=== PATIENT | female | born 1960 | race Caucasian/White ===

== ENCOUNTER → 2017-04-10 13:37 | Outpatient (CLI) | payer MEDICAID, SELFPAY ==
--- NOTE | 2017-04-10 13:41 | CT_ITS ---
STUDY: CT SOFT TISSUE NECK WITH CONTRAST REASON FOR EXAM: Female, 56 years old. Left mandibular pain. RADIATION DOSAGE (If Supplied By Facility): CTDIvol = ( 20.04 ) mGy, DLP = ( 560.52 ) mGycm TECHNIQUE: The patient was scanned in a multi-detector CT scanner. High resolution transaxial imaging was performed following intravenous administration of 85ml ml of Isovue 300 contrast material. Sagittal and coronal images were reconstructed. Individualized dose optimization techniques were used for this CT. COMPARISON: None. FINDINGS: Normal bilateral parotid glands. 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 Normal bilateral parapharyngeal spaces. Normal bilateral carotid spaces. Normal bilateral sublingual and submandibular glands and spaces. Normal visualized nasopharynx. Normal retropharyngeal space. Normal perivertebral space. Normal visualized bilateral faucial tonsils. The visualized tongue, tongue base and oropharynx are normal. The visualized cervical lymph nodes (levels I-) are within normal size limits, and maintain normal morphology. There is no demonstrated solid or cystic mass lesion. There is no abnormal contrast enhancement. Normal epiglottis, bilateral vallecula and hypopharynx. The pre-epiglottic and paraglottic adipose spaces are normal. Normal visualized bilateral piriform sinuses, aryepiglottic folds, vocal cords, and arytenoid-cricoid articulations. Normal subglottic trachea. Normal bilateral lobes of the thyroid gland. Normal visualized pulmonary apices. Normal visualized paranasal sinuses. Normal visualized cervical spine. CT/Soft Tissue Neck WITH Contrast IMPRESSION: Normal enhanced CT examination of the soft tissues of the neck. Electronically Signed: Nithin Kelsey MD at 17:13 EST , Service support ,
[2017-04-10 13:56] LABS: CREATININE FINGERSTICK 1.1 mg/dL (0.55-1.02)
== END ==
PROVIDERS: Family Provider Family Medicine; PCP Family Medicine; Visit Provider Otolaryngology
DX: R68.84 Jaw pain (principal)
CPT/HCPCS: 70491; Q9967

== ENCOUNTER 2018-10-16 18:37 | Inpatient (IN) | payer MEDICAID, SELFPAY ==
[2018-10-16] VITALS (9 sets, daily range): BP systolic 109–154; BP diastolic 67–100; PULSE 84–117; RESP 18–32; TEMP 36.7–37.3; O2SAT 93–96; BMI 41.1; BMI 41.3
--- NOTE | 2018-10-16 18:51 | EKG12_ITS ---
Test Reason : COMPLAINT Blood Pressure : / mmHG Vent. Rate : 109 BPM Atrial Rate : 109 BPM P-R Int : 194 ms QRS Dur : 086 ms QT Int : 330 ms P-R-T Axes : 051 046 040 degrees QTc Int : 444 ms Sinus tachycardia Low voltage QRS Borderline ECG Confirmed by DAYAN HUFF ([id number]), editor managing newspaper ZEV VERA ([id number]) on 10/20/2018 2:35:50 PM Referred By: EPHRAIM Confirmed By:DAYAN HUFF
--- NOTE | 2018-10-16 18:53 | ED.VIS.GEN ---
History of Present Illness Chief Complaint: Complaint Informant: Patient Onset: Days Context: Gradual Onset Timing: Continuous Current Severity: Moderate Maximum Severity: Moderate Narrative: The patient presents to the emergency department with infectious symptoms. Patient states that she had urinary symptoms for about 2 weeks. Over the past few days, she is began to have some shortness of breath, chills, myalgias, arthralgias. She was actually seen at urgent care. She had a fever of 102.5. She was also tachycardic and feeling ill. The patient was sent over to the emergency department. She states that she does get frequent urinary tract infections. She states she has not been on antibiotics for some time. She denies any cough. She denies orthopnea. She denies any other recent illness. Prior similar symptoms: No Recent Illness/Hospitalization: No Past Medical History - Allergies and Home Meds Allergies/Adverse Reactions: Allergies atropine sulfate [From ] Allergy (Verified 10/16/18 18:38) Anaphylaxis Cephalosporins Allergy (Verified 10/16/18 18:38) Anaphylaxis fluoxetine Allergy (Verified 10/16/18 18:38) Hives hyoscyamine sulfate [From ] Allergy (Verified 10/16/18 18:38) Anaphylaxis phenobarbital [From ] Allergy (Verified 10/16/18 18:38) Anaphylaxis scopolamine hydrobromide [From ] Allergy (Verified 10/16/18 18:38) Anaphylaxis divalproex sodium [From Depakote] Adverse Reaction (Verified 10/16/18 18:38) Other INSECT BITES Allergy (Uncoded 10/16/18 18:38) Swelling Primary Care Physician: Cong Dumnot MD [Primary Care Provider] - Prior records reviewed: Yes Past Medical History: - Smoking Status: Unknown if ever smoked Review of Systems General: Reports: Chills, Fever Eyes: Denies: Visual changes - bilaterally, Diplopia ENT: Denies: Rhinorrhea, Sore throat Cardiovascular: Denies: Chest pain, Palpitations Respiratory: Reports: Cough Gastrointestinal: Reports: Nausea Genitourinary: Reports: Dysuria, Frequency Musculoskeletal: Reports: Back pain Skin: Denies: Rash, Wounds Neurological: Denies: Headache, Weakness, Numbness Physical Exam Vital Signs/Narrative: Vital Signs Temp Pulse Resp BP Pulse Ox 10/16/18 18:38 98.1 F 117 H 19 H 131/75 H 95 Inital Vital Signs reviewed: Yes General: Well nourished, Well developed, No Acute Distress Head: Normocephalic, Atraumatic Eyes: Perrl, EOMI ENT: Moist mucous membranes, No rhinorrhea Neck: Supple, Nontender Cardiovascular: Regular rhythm, No murmurs, Tachycardia Respiratory: No distress, CTA bilaterally, Chest nontender Abdomen: Soft, Nontender, Nondistended, Normal bowel sounds, No masses Back: Nontender, Normal Inspection Extremities: Nontender, No edema Skin: Normal color, No rash Neurological: Alert, Oriented x3, Cranial nerves II-XII grossly intact, Normal Strength, Normal Sensation Psychological: Normal affect, Normal Mood Diagnostic/Tx/Re-eval Chest X-Ray - ED: 1 View, Normal, Heart, Lungs, Mediastinum Clinical Impression(s) from Imaging Studies Chest X-Ray 10/16/18 18:55 IMPRESSION: Left basilar atelectasis at 1911 Reported and signed by: Cathleen Casey DO Electronically Signed: Cathleen Casey DO at 19:10 EDT Tel , Service support , Abnormal Lab Results 10/16/18 10/16/18 10/16/18 19:00 19:00 19:00 WBC 14.6 H RBC 4.59 Hgb 12.9 Hct 38.4 MCV 83.7 MCH 28.1 MCHC 33.6 RDW Std Deviation 41.3 RDW Coeff of Vini 13.4 Plt Count 387 MPV 8.6 Immature Gran % (Auto) 0.700 Neut % (Auto) 75.9 H Lymph % (Auto) 13.3 L [place] % (Auto) 9.5 Eos % (Auto) 0.2 Baso % (Auto) 0.4 Absolute Neuts (auto) 11.1 H Absolute Lymphs (auto) 1.94 Nucleated RBC % 0 Sodium 139 Potassium 3.3 L Chloride 104 Carbon Dioxide 24.0 Anion Gap 11 BUN 11 Creatinine 1.12 H Estim Creat Clear Calc 42.78 Est GFR (MDRD) Af Amer 64 Est GFR (MDRD) Non-Af 53 L BUN/Creatinine Ratio 9.8 L Glucose 111 H Lactic Acid 3.3 H Calcium 8.7 Total Bilirubin 0.40 AST 22 ALT 19 Alkaline Phosphatase 108 Total Protein 7.2 Albumin 2.7 L Globulin 4.5 H Albumin/Globulin Ratio 0.6 L Urine Color Urine Clarity Urine pH Ur Specific [place] Urine Protein Urine Glucose (UA) Urine Ketones Urine Occult Blood Urine Nitrite Urine Bilirubin Urine Urobilinogen Ur Leukocyte Esterase Urine RBC Urine WBC Ur Squamous Epith Cells Amorphous Sediment Urine Bacteria Urine Mucus 10/16/18 19:25 WBC RBC Hgb Hct MCV MCH MCHC RDW Std Deviation RDW Coeff of Vini Plt Count MPV Immature Gran % (Auto) Neut % (Auto) Lymph % (Auto) [place] % (Auto) Eos % (Auto) Baso % (Auto) Absolute Neuts (auto) Absolute Lymphs (auto) Nucleated RBC % Sodium Potassium Chloride Carbon Dioxide Anion Gap BUN Creatinine Estim Creat Clear Calc Est GFR (MDRD) Af Amer Est GFR (MDRD) Non-Af BUN/Creatinine Ratio Glucose Lactic Acid Calcium Total Bilirubin AST ALT Alkaline Phosphatase Total Protein Albumin Globulin Albumin/Globulin Ratio Urine Color Yellow Urine Clarity Cloudy Urine pH 5.0 Ur Specific [place] 1.015 Urine Protein 30 H Urine Glucose (UA) Normal Urine Ketones 5 H Urine Occult Blood 50 H Urine Nitrite Positive H Urine Bilirubin Negative Urine Urobilinogen Normal Ur Leukocyte Esterase 500 H Urine RBC 5-10 SEEN Urine WBC 50-100 SEEN Ur Squamous Epith Cells 5-10 SEEN Amorphous Sediment 1+ URATE Urine Bacteria 1+ Urine Mucus 0 SEEN - Rhythm Strip Rhythm Strip: Sinus Tach Rate: 105 Ectopy: None - EKG Initial EKG Interpretation: No Acute Injury Pattern, Sinus Tachycardia - Medical Decision Making Patient has fever, tachycardia, dysuria. Her symptoms do seem consistent with UTI with sepsis. Metabolic work-up was pursued. She does have a leukocytosis. Her urine shows obvious evidence of infection. Based on patient's allergies, she was started on Cipro IV. Her heart rate had improved with fluids. She was not hypotensive. Her lactic acid was mildly elevated. At this point, I do feel that she is going to require admission. Patient was discussed with the hospitalist who agrees with plan of care. Impression 1. UTI 2. Sepsis ED Disposition - Plan for ED Patient: Referrals: Cong Dumont MD [Primary Care Provider] -
--- NOTE | 2018-10-16 18:55 | RAD_ITS ---
HISTORY:PT WITH BURNING ON URINATION, DYSURIA, FEVER AND CHILLS X 2 WEEKS PT WITH BURNING ON URINATION, DYSURIA, FEVER AND CHILLS X 2 WEEKS EXAM: XR Chest 1 View: COMPARISON: None FINDINGS: # of images incl. paperwork: 1 LINES/DEVICES: None. LUNGS: Left basilar atelectasis. No consolidation, edema or effusion. No pneumothorax. MEDIASTINUM AND CARDIOVASCULAR STRUCTURES: Cardiac silhouette not enlarged. BONES AND SOFT TISSUES: Unremarkable. RAD/Chest 1 View (Portable) IMPRESSION: Left basilar atelectasis at 1911 Reported and signed by: Cathleen Casey DO Electronically Signed: Cathleen Casey DO at 19:10 EDT Tel , Service support ,
--- NOTE | 2018-10-16 18:58 | ED.RN ---
NO OLD EKGS IN MUSE
[2018-10-16] MEDS: Acetaminophen 500 MG Tablet 1000 MG PO (19:11)
[2018-10-16] MEDS: 0.9% Normal Saline 1,000 ML 1000 ML IV (19:12)
[2018-10-16 19:18] LABS: Absolute Lymphocyte Count 1.94 X10^3/uL (0.83-4.51); Absolute Neutrophil Count 11.1 X10^3/uL (2.0-7.7); Basophil# 0.06 X10^3/uL; Basophil% 0.4 % (0-1); Eosinophil# 0.03 X10^3/uL; Eosinophils% 0.2 % (0-5); Hematocrit 38.4 % (37-47); Hemoglobin 12.9 g/dL (12.0-15.0); Lymphocyte # 1.94 X10^3/ul (4.0); Lymphocyte % 13.3 % (19-41); Mean Corp Hgb Conc 33.6 g/dL (32-36); Mean Corpuscular Hgb 28.1 pg (27.0-32.0); Mean Corpuscular Volume 83.7 fL (81-99); Mean Platelet Vol. 8.6 fl (6.2-12.0); Monocyte# 1.39 X10^3/uL; Monocyte% 9.5 % (0-10); NRBC Flagged by Analyzer 0 % (0-5); Neutrophil # 11.06 X10^3/uL (2.7-7.7); Neutrophil % 75.9 % (47-70); Platelet Count 387 K/mm3 (150-450); RBC Distribution Width CV 13.4 % (11.6-14.6); RBC Distribution Width SD 41.3 fl (35.1-43.9); Red Blood Count 4.59 M/mm3 (4.2-5.4); White Blood Count 14.6 K/mm3 (4.4-11.0)
[2018-10-16 19:36] LABS: Mucous, Urine 0 SEEN /hpf (<or=2+)
[2018-10-16 19:43] LABS: Color, Urine Yellow (Yellow); Glucose, Dipstick Normal (Normal); Ketone-Dipstick 5 mg/dl (Negative); Leukocyte Esterase-Dipstick 500 /ul (Negative); Nitrite-Dipstick Positive (Negative); Occult Blood-Urine 50 /ul (Negative); Protein-Dipstick 30 mg/dl (Negative); Specific Gravity, Urine 1.015 (1.002-1.030); Urine Bilirubin Dipstick Negative (Negative); Urine Clarity Cloudy (Clear); Urine Urobilinogen Normal (Normal)
[2018-10-16 19:45] LABS: ALB/GLOB Ratio 0.6 RATIO (0.9-2.4); AST(SGOT) 22 U/L (15-37); Alanine Aminotransfer ALT/SGPT 19 U/L (13-56); Albumin, Serum 2.7 g/dL (3.2-5.0); Alkaline Phosphatase 108 U/L (45-117); Anion Gap 11 (5-15); BUN 11 mg/dL (7-18); BUN/Creat Ratio 9.8 RATIO (10-20); Calcium,Total 8.7 mg/dL (8.5-10.1); Chloride 104 mmol/L (98-107); Creatinine, Serum 1.12 mg/dL (0.55-1.02); EST Glomerular Filtration Rate 53 mL/min (>60); Est Glom Filt Rate - Afr Amer 64 mL/min (>60); Estimated Creatinine Clearance 42.78 ml/min; Globulin 4.5 g/dL (2.2-4.2); Glucose 111 mg/dL (74-106); Potassium 3.3 mmol/L (3.5-5.1); Protein, Total 7.2 g/dL (6.4-8.2); Sodium Level 139 mmol/L (136-145)
[2018-10-16 19:55] LABS: Lactic Acid 3.3 mmol/L (0.4-2.0)
[2018-10-16 19:57] LABS: Red Blood Cells-Urine 5-10 SEEN /hpf (0-5); White Blood Cells 50-100 SEEN /hpf (0-5)
[2018-10-16 19:58] LABS: Amorphous Sediment 1+ URATE; Bacteria 1+ /hpf (None Seen); Squamous Epithelial Cells - UA 5-10 SEEN /hpf (5-10)
--- NOTE | 2018-10-16 20:00 | ED.RN ---
PT LACTIC 3.3, DR. HURTADO INFORMED.
--- NOTE | 2018-10-16 20:17 | HP.PCM_ITS ---
Problem List (1) Severe sepsis Status: Acute (2) UTI (urinary tract infection) Status: Acute History of Present Illness Date of Admission: 10/16/18 Chief Complaint: Increased urinary frequency and urgency. The patient is a 58 year old F with a significant history of bipolar disorder type II mixed; Gennaro thyroiditis; postural orthostatic tachycardia syndrome; osteoarthritis and vitamin D deficiency who presented to the emergency department with 2 to 3-week history of increased frequency of urination and urinary urgency. Because of patient urinary symptoms she has had episodes of urinary incontinence. Her symptoms has been progressively getting worse. She went to her PCPs office on the day of presentation. Her temperature at the PCPs office was 102.9. Also patient was tachycardic. Associated with her symptoms is rigors; nausea; lightheadedness; malaise; anorexia; and diaphoresis. At the emergency department patient was found to have a low-grade fever of 99.2.; tachycardia; and tachypnea. Her urinalysis was abnormal. And she had leukocytosis. Blood culture was drawn. Urine culture was obtained. Her lactic acid was elevated at 3.3. She was empirically started on Levaquin because of multiple allergies to other antibiotics. Reportedly this is her third UTI since the beginning of the year (2019). She reported that at [facility] she had an ultrasound of her abdomen on the carrie day of presentation. Past Medical History Medical History: Medical History (Last Reviewed 10/16/18 @ 22:43 by Nigel Moreira MD) Gennaro's thyroiditis E06.3 Postural orthostatic tachycardia syndrome R00.0, I95.1 Allergies atropine sulfate [From ] Allergy (Verified 10/16/18 18:38) Anaphylaxis Cephalosporins Allergy (Verified 10/16/18 18:38) Anaphylaxis fluoxetine Allergy (Verified 10/16/18 18:38) Hives hyoscyamine sulfate [From ] Allergy (Verified 10/16/18 18:38) Anaphylaxis phenobarbital [From ] Allergy (Verified 10/16/18 18:38) Anaphylaxis scopolamine hydrobromide [From ] Allergy (Verified 10/16/18 18:38) Anaphylaxis divalproex sodium [From Depakote] Adverse Reaction (Verified 10/16/18 18:38) Other INSECT BITES Allergy (Uncoded 10/16/18 18:38) Swelling Home Medications: Ambulatory Orders Medication Instructions Recorded hydrOXYzine pamoate capsule 50 mg PO 4X/DAY 10/05/13 [Vistaril] Aripiprazole 15 mg PO DAILY 10/16/18 Duloxetine Hcl [Cymbalta] 60 mg PO BID 10/16/18 Ergocalciferol (Vitamin D2) 50,000 unit PO ADAN 10/16/18 [Vitamin D2] Ferrous Sulfate 325 mg PO BID 10/16/18 Gabapentin [Neurontin] 600 mg PO DAILY 10/16/18 Gabapentin [Neurontin] 900 mg PO QHS 10/16/18 Lamotrigine [Lamictal] 200 mg PO BID 10/16/18 Levothyroxine Sodium 200 mcg PO DAILY 10/16/18 Liothyronine Sodium [Cytomel] 5 mcg PO BID 10/16/18 Meloxicam [Mobic] 15 mg PO DAILY 10/16/18 Metformin HCl 500 mg PO DAILY 10/16/18 Metoprolol Tartrate 25 mg PO TID 10/16/18 Multivit with Iron,Minerals 1 ea PO DAILY 10/16/18 [Multivitamins with Iron] Nystatin 15 gm TP BID PRN 10/16/18 Pantoprazole Sodium [Protonix] 40 mg PO DAILY 10/16/18 Questran Packet 1 packet BID 10/16/18 Surgical History: cholecystectomy Lives: Alone Smoking Status: Former smoker Alcohol: None - *Family History Maternal History Items: Cancer - Colon cancer Paternal History Items: - - Alcoholism Review of Systems Constitutional: Reports: Chills, Fever, Malaise. Denies: Weight Change HEENT: Denies: Head Aches, Sinus Congestion, Sinus Drainage Cardiovascular: Denies: Chest Pain, Palpitations Respiratory: Denies: Cough, Shortness of breath at rest, Sputum production Gastrointestinal: Reports: Nausea. Denies: Abdominal Pain, Vomiting Genitourinary: Reports: Frequency, Incontinence, Urgency Musculoskeletal: Denies: Joint Pain, Joint Tenderness Skin: Denies: Rash, Wounds Neurological: Denies: Numbness, Tingling, Focal weakness Psychiatric: Denies: Anxiety, Depression, Homicidal Ideations, Suicidal Ideations Hematologic/ Lymphatic: Denies: Easy Bruising, Easy Bleeding VTE Information - Inpt Only VTE Present on Admission: No VTE Mechan Device Prophylaxis: None VTE Pharm Prophylaxis ordered?: Yes Patient Problems: Active and Suspected Problems (Last Reviewed 10/16/18 @ 22:43 by Nigel Moreira MD) Severe sepsis (Acute) UTI (urinary tract infection) (Acute) - Physical Exam General: Alert, Oriented x3, Cooperative, - - Warm to touch and visibly diaphoretic HEENT: Atraumatic, PERRLA, EOMI, Normocephalic Neck: Supple, No JVD, Negative Carotid Bruits Lungs: Clear to auscultation, Normal air movement, Tachypneic Cardiovascular: No murmurs, Tachycardic Abdomen: Bowel Sounds Present, Soft, Non Tender Extremities: No edema, Capillary Refill Less than 3 Seconds Skin: No rashes, No breakdown Musculoskeletal: No Tenderness to Palpation of Joints or Extremities Neurological: Cranial nerves II-XII grossly intact Psych/Mental Status: Normal Affect, Appropriate Vital Signs Temp Pulse Resp BP Pulse Ox 99.2 F H 106 H 22 H 127/80 H 96 10/16/18 20:08 10/16/18 20:08 10/16/18 20:08 10/16/18 20:08 10/16/18 20:08 Oxygen Delivery Method Room Air Weight: 102.1 kg Body Mass Index (BMI) 41.1 Laboratory Tests Past 24 Hrs 10/16/18 10/16/18 10/16/18 19:00 19:00 19:00 WBC 14.6 H RBC 4.59 Hgb 12.9 Hct 38.4 MCV 83.7 MCH 28.1 MCHC 33.6 RDW Std Deviation 41.3 RDW Coeff of Vini 13.4 Plt Count 387 MPV 8.6 Immature Gran % (Auto) 0.700 Neut % (Auto) 75.9 H Lymph % (Auto) 13.3 L [place] % (Auto) 9.5 Eos % (Auto) 0.2 Baso % (Auto) 0.4 Absolute Neuts (auto) 11.1 H Absolute Lymphs (auto) 1.94 Nucleated RBC % 0 Sodium 139 Potassium 3.3 L Chloride 104 Carbon Dioxide 24.0 Anion Gap 11 BUN 11 Creatinine 1.12 H Estim Creat Clear Calc 42.78 Est GFR (MDRD) Af Amer 64 Est GFR (MDRD) Non-Af 53 L BUN/Creatinine Ratio 9.8 L Glucose 111 H Lactic Acid 3.3 H Calcium 8.7 Total Bilirubin 0.40 AST 22 ALT 19 Alkaline Phosphatase 108 Total Protein 7.2 Albumin 2.7 L Globulin 4.5 H Albumin/Globulin Ratio 0.6 L Urine Color Urine Clarity Urine pH Ur Specific [place] Urine Protein Urine Glucose (UA) Urine Ketones Urine Occult Blood Urine Nitrite Urine Bilirubin Urine Urobilinogen Ur Leukocyte Esterase Urine RBC Urine WBC Ur Squamous Epith Cells Amorphous Sediment Urine Bacteria Urine Mucus 10/16/18 19:25 WBC RBC Hgb Hct MCV MCH MCHC RDW Std Deviation RDW Coeff of Vini Plt Count MPV Immature Gran % (Auto) Neut % (Auto) Lymph % (Auto) [place] % (Auto) Eos % (Auto) Baso % (Auto) Absolute Neuts (auto) Absolute Lymphs (auto) Nucleated RBC % Sodium Potassium Chloride Carbon Dioxide Anion Gap BUN Creatinine Estim Creat Clear Calc Est GFR (MDRD) Af Amer Est GFR (MDRD) Non-Af BUN/Creatinine Ratio Glucose Lactic Acid Calcium Total Bilirubin AST ALT Alkaline Phosphatase Total Protein Albumin Globulin Albumin/Globulin Ratio Urine Color Yellow Urine Clarity Cloudy Urine pH 5.0 Ur Specific [place] 1.015 Urine Protein 30 H Urine Glucose (UA) Normal Urine Ketones 5 H Urine Occult Blood 50 H Urine Nitrite Positive H Urine Bilirubin Negative Urine Urobilinogen Normal Ur Leukocyte Esterase 500 H Urine RBC 5-10 SEEN Urine WBC 50-100 SEEN Ur Squamous Epith Cells 5-10 SEEN Amorphous Sediment 1+ URATE Urine Bacteria 1+ Urine Mucus 0 SEEN Assessment/Plan All Active Problems (Last Reviewed 10/16/18 @ 22:43 by Nigel Moreira MD) Severe sepsis (Acute) UTI (urinary tract infection) (Acute) The patient is a 58 year old F with a significant history of bipolar disorder type II mixed; Gennaro thyroiditis; postural orthostatic tachycardia syndrome; osteoarthritis and vitamin D deficiency who presented to the emergency department with 2 to 3-week history of increased frequency of urination and urinary urgency; fever and tachycardia at MDs office; and also with rigors; nausea; lightheadedness; malaise; anorexia; diaphoresis; and found to have low- grade fever; tachycardia; tachypnea; leukocytosis; and severely elevated lactic acid as well as abnormal urinalysis consistent with severe sepsis secondary to UTI.. Severe sepsis secondary to UTI Patient meets sirs criteria with white count of 14.6; tachycardia with highest heart rate of 117; tachypnea with highest respiratory rate of 22. She has abnormal urinalysis. She has lactic acid of 3.3. She meets severe sepsis criteria with lactic acid of 3.3. Urine culture and blood culture was ordered emergency department; follow Trend lactic acid Antibiotics : Patient has allergy to cephalosporins. Levaquin was started in emergency department; continued IV hydration: Received IV hydration bolus at the emergency department. Continue patient on maintenance infusion of normal saline with 20 of potassium. Trend CBC and BMP. Hold Metformin because of lactic acidosis and severe sepsis. Obtain ultrasound of the abdomen from [facility]. Hypokalemia On presentation her potassium was 3.3 Started on normal saline with potassium. We will give 40 mEq of potassium chloride x1. Trend BMP Anemia Ferrous sulfate continued; dose adjusted Bipolar disorder Aripiprazole continued Lamictal continued Cymbalta continued Anxiety Vistaril continued Prediabetes Patient is on metformin at home. She reported that her mis specialist wanted her pancreas to rest. Stating that she does not even have prediabetes since her A1c is normal. Will check Accu-Chek q. before meals at bedtime and cover with correction scale if needed. Neuropathy Neurontin continued Gennaro thyroiditis Synthroid and liothyronine continued Postural orthostatic tachycardia Syndrome On presentation she has tachycardia without any postural changes Metoprolol continued Protonix continued DVT Prophylaxis Subcutaneous Lovenox Code Visit Inpatient E&M: 27495 Init Hosp L3
[2018-10-16] MEDS: levoFLOXacin IV 750 MG/150 ML BAG 100 MG IV (20:35)
--- NOTE | 2018-10-16 20:37 | ED.RN ---
PTS FRIENDS NUMBER, MONICA SEGOVIA [phone]
--- NOTE | 2018-10-16 22:35 | SEPSISNOTE ---
Sepsis Note - Physical Exam/Vitals Objective: Chest X-Ray 10/16/18 18:55 IMPRESSION: Left basilar atelectasis at 1911 Reported and signed by: Cathleen Casey DO Electronically Signed: Cathleen Casey DO at 19:10 EDT Tel , Service support , Temp Pulse Resp BP Pulse Ox 99.2 F H 94 20 H 116/80 96 10/16/18 20:29 10/16/18 20:57 10/16/18 20:57 10/16/18 20:57 10/16/18 20:57 10/16/18 10/16/18 10/16/18 19:25 19:00 19:00 WBC RBC Hgb Hct MCV MCH MCHC RDW Std Deviation RDW Coeff of Vini Plt Count MPV Immature Gran % (Auto) Neut % (Auto) Lymph % (Auto) [place] % (Auto) Eos % (Auto) Baso % (Auto) Absolute Neuts (auto) Absolute Lymphs (auto) Nucleated RBC % Sodium 139 Potassium 3.3 L Chloride 104 Carbon Dioxide 24.0 Anion Gap 11 BUN 11 Creatinine 1.12 H Estim Creat Clear Calc 42.78 Est GFR (MDRD) Af Amer 64 Est GFR (MDRD) Non-Af 53 L BUN/Creatinine Ratio 9.8 L Glucose 111 H Lactic Acid 3.3 H Calcium 8.7 Total Bilirubin 0.40 AST 22 ALT 19 Alkaline Phosphatase 108 Total Protein 7.2 Albumin 2.7 L Globulin 4.5 H Albumin/Globulin Ratio 0.6 L Urine Color Yellow Urine Clarity Cloudy Urine pH 5.0 Ur Specific [place] 1.015 Urine Protein 30 H Urine Glucose (UA) Normal Urine Ketones 5 H Urine Occult Blood 50 H Urine Nitrite Positive H Urine Bilirubin Negative Urine Urobilinogen Normal Ur Leukocyte Esterase 500 H Urine RBC 5-10 SEEN Urine WBC 50-100 SEEN Ur Squamous Epith Cells 5-10 SEEN Amorphous Sediment 1+ URATE Urine Bacteria 1+ Urine Mucus 0 SEEN 10/16/18 19:00 WBC 14.6 H RBC 4.59 Hgb 12.9 Hct 38.4 MCV 83.7 MCH 28.1 MCHC 33.6 RDW Std Deviation 41.3 RDW Coeff of Vini 13.4 Plt Count 387 MPV 8.6 Immature Gran % (Auto) 0.700 Neut % (Auto) 75.9 H Lymph % (Auto) 13.3 L [place] % (Auto) 9.5 Eos % (Auto) 0.2 Baso % (Auto) 0.4 Absolute Neuts (auto) 11.1 H Absolute Lymphs (auto) 1.94 Nucleated RBC % 0 Sodium Potassium Chloride Carbon Dioxide Anion Gap BUN Creatinine Estim Creat Clear Calc Est GFR (MDRD) Af Amer Est GFR (MDRD) Non-Af BUN/Creatinine Ratio Glucose Lactic Acid Calcium Total Bilirubin AST ALT Alkaline Phosphatase Total Protein Albumin Globulin Albumin/Globulin Ratio Urine Color Urine Clarity Urine pH Ur Specific [place] Urine Protein Urine Glucose (UA) Urine Ketones Urine Occult Blood Urine Nitrite Urine Bilirubin Urine Urobilinogen Ur Leukocyte Esterase Urine RBC Urine WBC Ur Squamous Epith Cells Amorphous Sediment Urine Bacteria Urine Mucus General: Alert, Oriented x3, Cooperative Lungs: Clear to auscultation, Normal air movement, Tachypneic Cardiovascular: Tachycardic Capillary Refill: <3 seconds Peripheral Pulses: Normal Skin Color: [place] - Assessment/Plan Severe sepsis secondary to UTI. Received normal saline bolus in the emergency department. Continue on maintenance fluid normal saline with potassium Lactic acid is been trended Urine culture and blood culture was ordered in the emergency department; follow results Received Levaquin in the emergency department. Levaquin reordered.
[2018-10-16] MEDS: lamoTRIgine 100 MG Tablet 200 MG PO (23:09)
[2018-10-16] MEDS: DULoxetine Hcl 60 MG Capsule PO (23:09)
[2018-10-16] MEDS: Cholestyramine/Sucrose 4 GM/PACKET PO (23:09)
[2018-10-16] MEDS: Metoprolol Tartrate 25 MG Tablet PO (23:11)
[2018-10-16 23:13] LABS: Reflex Lactate? Y
[2018-10-16 23:26] LABS: Bedside Glucose 107 mg/dL (70-110)
[2018-10-16 23:54] LABS: Lactic Acid 1.8 mmol/L (0.4-2.0)
[2018-10-17] VITALS (11 sets, daily range): BP systolic 118–141; BP diastolic 60–80; PULSE 74–88; RESP 16–20; TEMP 37.2–37.9; O2SAT 93–95
[2018-10-17] MEDS: Levothyroxine 100 MCG Tablet 200 MCG PO (05:57)
[2018-10-17] MEDS: Metoprolol Tartrate 25 MG Tablet PO ×3 (05:57→21:18)
[2018-10-17 06:30] LABS: Absolute Lymphocyte Count 2.06 X10^3/uL (0.83-4.51); Absolute Neutrophil Count 11.1 X10^3/uL (2.0-7.7); Basophil# 0.06 X10^3/uL; Basophil% 0.4 % (0-1); Eosinophil# 0.04 X10^3/uL; Eosinophils% 0.3 % (0-5); Hematocrit 36.6 % (37-47); Lymphocyte # 2.06 X10^3/ul (4.0); Lymphocyte % 14.2 % (19-41); Mean Corp Hgb Conc 32.8 g/dL (32-36); Mean Corpuscular Hgb 27.4 pg (27.0-32.0); Mean Corpuscular Volume 83.6 fL (81-99); Monocyte# 1.11 X10^3/uL; Monocyte% 7.7 % (0-10); NRBC Flagged by Analyzer 0 % (0-5); Neutrophil # 11.13 X10^3/uL (2.7-7.7); Platelet Count 364 K/mm3 (150-450); RBC Distribution Width CV 13.5 % (11.6-14.6); RBC Distribution Width SD 41.5 fl (35.1-43.9); Red Blood Count 4.38 M/mm3 (4.2-5.4); White Blood Count 14.5 K/mm3 (4.4-11.0)
[2018-10-17 06:56] LABS: Anion Gap 8 (5-15); BUN 8 mg/dL (7-18); BUN/Creat Ratio 8.8 RATIO (10-20); Calcium,Total 8.4 mg/dL (8.5-10.1); Chloride 111 mmol/L (98-107); EST Glomerular Filtration Rate 68 mL/min (>60); Est Glom Filt Rate - Afr Amer 82 mL/min (>60); Estimated Creatinine Clearance 53.23 ml/min; Glucose 103 mg/dL (74-106); Potassium 3.9 mmol/L (3.5-5.1); Sodium Level 144 mmol/L (136-145)
[2018-10-17 07:05] LABS: Bedside Glucose 122 mg/dL (70-110)
[2018-10-17] MEDS: lamoTRIgine 100 MG Tablet 200 MG PO ×2 (10:06→21:17)
[2018-10-17] MEDS: Cholestyramine/Sucrose 4 GM/PACKET PO ×2 (10:06→22:14)
[2018-10-17] MEDS: Enoxaparin 40 MG/0.4 ML Syringe SC (10:06)
[2018-10-17] MEDS: Gabapentin 600 MG Tablet PO (10:06)
[2018-10-17] MEDS: DULoxetine Hcl 60 MG Capsule PO ×2 (10:06→21:17)
[2018-10-17] MEDS: Pantoprazole Sodium 20 MG Tablet PO (10:06)
[2018-10-17] MEDS: ARIPiprazole 5 MG Tablet 15 MG PO (10:06)
[2018-10-17 11:36] LABS: Bedside Glucose 107 mg/dL (70-110)
--- NOTE | 2018-10-17 12:04 | CASEMGMT ---
DARON KO assessment: Face to Face with patient for initial transition planning/care coordination assessment. DARON KO introduced self and role at [facility], pt voices understanding and consents to assessment at this time. Pt is lying in bed in no distress at this time. Pt is A/Ox4 at this time and answers all questions appropriately at this time. Care providers, pharmacy, and demographics verified at this time. Pt presented to ED 10/16/18 for burning with urination, dysuria, fever and chills x2 weeks. PCP: Julia Specialists: psych at [facility]; Endo at [facility] Preferred Pharmacy: [facility] Insurance: [employer] Prescription Benefit: [employer] Living Will/HPOA: Pt states does not have LW/HPOA and declines info at this time. Pt states she has all the info at home but has never filled out. Pt aware that [facility] SW's can help her complete and pt declines at this time. LNOK: Julianna Torres, mother Living Arrangements: Pt states lives alone in 1 story home and states no concerns at home at this time. Pt states is independent with ADL's. Transportation: Pt states drives self and states no transportation concerns at this time. DME/HHC: Pt states has a cane and states no need for any further DME. Pt states no hx of HHC or SNF in the past. Pt states no concerns with going home at time of discharge. Pt states is on disability. Pt states does not smoke or drink ETOH. Pt states no further concerns/needs at this time. CM to follow for any further discharge planning/needs. Advised pt to ask for CM if any further questions/concerns/needs arise, voices understanding. Pt Goal: Home Plan[place] DARON KO
--- NOTE | 2018-10-17 13:55 | PCM.PN.HOSP ---
Patient Problems: Active and Suspected Problems (Last Reviewed 10/16/18 @ 22:43 by Nigel Moreira MD) Severe sepsis (Acute) UTI (urinary tract infection) (Acute) Subjective: Patient was seen and examined. She still feels weak. Denied fever, chills. Denies chest pain Objective: Physical Exam General: Alert, Oriented x3, Cooperative, obese HEENT: Atraumatic, PERRLA, EOMI, Normocephalic Neck: Supple, No JVD, Negative Carotid Bruits Lungs: Clear to auscultation, Normal air movement, Tachypneic Cardiovascular: No murmurs, Tachycardic Abdomen: Bowel Sounds Present, Soft, Non Tender Extremities: No edema, Capillary Refill Less than 3 Seconds Skin: No rashes, No breakdown Musculoskeletal: No Tenderness to Palpation of Joints or Extremities Neurological: Cranial nerves II-XII grossly intact Psych/Mental Status: Normal Affect, Appropriate Vitals/I&O's: Vital Signs Temp Pulse Resp BP Pulse Ox 99 F 79 16 122/69 H 93 10/17/18 10:00 10/17/18 10:00 10/17/18 10:00 10/17/18 10:00 10/17/18 10:00 Oxygen Delivery Method Room Air Weight: 102.4 kg Body Mass Index (BMI) 41.3 Intake and Output for Last 24 Hours 10/15/18 10/16/18 10/17/18 23:59 23:59 23:59 Intake Total 1363.75 / 1363.75 2145 / 2145 Output Total 200 / 200 Balance 1363.75 / 1363.75 1945 / 1945 Microbiology Past 72 Hours 10/16/18 19:25 Urine Catheter - Catheter Urine Culture - Preliminary Gram negative taye Laboratory Results 10/16/18 19:00: WBC 14.6 H, RBC 4.59, Hgb 12.9, Hct 38.4, MCV 83.7, MCH 28.1, MCHC 33.6, RDW Std Deviation 41.3, RDW Coeff of Vini 13.4, Plt Count 387, MPV 8.6, Immature Gran % (Auto) 0.700, Neut % (Auto) 75.9 H, Lymph % (Auto) 13.3 L, [place] % (Auto) 9.5, Eos % (Auto) 0.2, Baso % (Auto) 0.4, Absolute Neuts (auto) 11.1 H, Absolute Lymphs (auto) 1.94, Nucleated RBC % 0 10/16/18 19:00: Sodium 139, Potassium 3.3 L, Chloride 104, Carbon Dioxide 24.0, Anion Gap 11, BUN 11, Creatinine 1.12 H, Estim Creat Clear Calc 42.78, Est GFR (MDRD) Af Amer 64, Est GFR (MDRD) Non-Af 53 L, BUN/Creatinine Ratio 9.8 L, Glucose 111 H, Calcium 8.7, Total Bilirubin 0.40, AST 22, ALT 19, Alkaline Phosphatase 108, Total Protein 7.2, Albumin 2.7 L, Globulin 4.5 H, Albumin/Globulin Ratio 0.6 L 10/16/18 19:00: Lactic Acid 3.3 H 10/16/18 19:25: Urine Color Yellow, Urine Clarity Cloudy, Urine pH 5.0, Ur Specific [place] 1.015, Urine Protein 30 H, Urine Glucose (UA) Normal, Urine Ketones 5 H, Urine Occult Blood 50 H, Urine Nitrite Positive H, Urine Bilirubin Negative, Urine Urobilinogen Normal, Ur Leukocyte Esterase 500 H, Urine RBC 5-10 SEEN, Urine WBC 50-100 SEEN, Ur Squamous Epith Cells 5-10 SEEN, Amorphous Sediment 1+ URATE, Urine Bacteria 1+, Urine Mucus 0 SEEN 10/16/18 23:12: POC Glucose 107 10/16/18 23:25: Lactic Acid 1.8 10/17/18 05:22: Sodium 144, Potassium 3.9, Chloride 111 H, Carbon Dioxide 25.0, Anion Gap 8, BUN 8, Creatinine 0.90, Estim Creat Clear Calc 53.23, Est GFR (MDRD) Af Amer 82, Est GFR (MDRD) Non-Af 68, BUN/Creatinine Ratio 8.8 L, Glucose 103, Calcium 8.4 L 10/17/18 05:22: WBC 14.5 H, RBC 4.38, Hgb 12.0, Hct 36.6 L, MCV 83.6, MCH 27.4, MCHC 32.8, RDW Std Deviation 41.5, RDW Coeff of Vini 13.5, Plt Count 364, MPV 9.0, Immature Gran % (Auto) 0.400, Neut % (Auto) 77.0 H, Lymph % (Auto) 14.2 L, [place] % (Auto) 7.7, Eos % (Auto) 0.3, Baso % (Auto) 0.4, Absolute Neuts (auto) 11.1 H, Absolute Lymphs (auto) 2.06, Nucleated RBC % 0 10/17/18 06:57: POC Glucose 122 H 10/17/18 11:18: POC Glucose 107 Current Medications Acetaminophen (Tylenol) 650 mg PO Q6H PRN PRN PRN Reason: Mild Pain (1-3)/Temp > 100.7 F Aripiprazole (Abilify) 15 mg PO DAILY [facility] Last Admin: 10/17/18 10:06 Dose: 15 mg Documented by: Cholestyramine Resin (Questran 4gm Packet) 4 gm PO BID [facility] Last Admin: 10/17/18 10:06 Dose: 4 gm Documented by: Dextrose (D50w Syringe) 0 gm IV X1 PRN; Protocol PRN Reason: Hypoglycemia Duloxetine HCl (Cymbalta) 60 mg PO BID [facility] Last Admin: 10/17/18 10:06 Dose: 60 mg Documented by: Enoxaparin Sodium (Lovenox) 40 mg SC DAILY@1000 [facility] Last Admin: 10/17/18 10:06 Dose: 40 mg Documented by: Ergocalciferol (Vitamin D) 50,000 unit PO ADAN [facility] Ferrous Sulfate (Ferrous Sulfate) 325 mg PO BID@1200,1700 [facility] Gabapentin (Neurontin) 600 mg PO DAILY [facility] Last Admin: 10/17/18 10:06 Dose: 600 mg Documented by: Gabapentin (Neurontin) 900 mg PO QHS [facility] Glucagon () 1 mg IM .X1 PRN PRN Reason: Hypoglycemia Hydroxyzine Pamoate (Vistaril Pamoate Capsule) 50 mg PO TID PRN PRN PRN Reason: PAIN Levofloxacin (Levaquin Iv) 750 mg in 150 mls @ 100 mls/hr IV Q48@2200 [facility] Sodium Chloride () 250 mls @ 15 mls/hr IV .[id number] PRN PRN Reason: SALINE FLUSH Insulin Human Lispro (Humalog Kwikpen (Bkc)) 0 unit SC ACHS [facility]; Protocol Last Admin: 10/17/18 11:27 Dose: Not Given Documented by: Lamotrigine (Lamictal) 200 mg PO BID [facility] Last Admin: 10/17/18 10:06 Dose: 200 mg Documented by: Levothyroxine Sodium (Synthroid) 200 mcg PO DAILY@0600 [facility] Last Admin: 10/17/18 05:57 Dose: 200 mcg Documented by: Liothyronine Sodium (Cytomel) 5 mcg PO BID [facility] Last Admin: 10/17/18 10:18 Dose: Not Given Documented by: Melatonin (Melatonin) 3 mg PO QHS PRN PRN PRN Reason: INSOMNIA Meloxicam (Mobic) 15 mg PO DAILY PRN PRN PRN Reason: pain in knees Metoprolol Tartrate (Lopressor (Beta Mark)) 25 mg PO TID [facility] Last Admin: 10/17/18 05:57 Dose: 25 mg Documented by: Nutritional Formula (Lactose Free) (Ensure Enlive) 120 ml PO 4X/DAY [facility] Last Admin: 10/17/18 10:18 Dose: Not Given Documented by: Nystatin (Mycostatin) 1 applic TOPICAL BID PRN PRN PRN Reason: foot rash Ondansetron HCl (Zofran) 4 mg IV Q8H PRN PRN PRN Reason: NAUSEA/VOMITING Pantoprazole Sodium (Protonix) 20 mg PO DAILY [facility] Last Admin: 10/17/18 10:06 Dose: 20 mg Documented by: Sodium Chloride () 10 - 40 ml IV UD PRN PRN Reason: SALINE FLUSH Medical Necessity - Tobacco Use Smoking Status: Former smoker Assessment/Plan All Active Problems (Last Reviewed 10/16/18 @ 22:43 by Nigel Moreira MD) Severe sepsis (Acute) UTI (urinary tract infection) (Acute) 58-year-old female with past medical history of bipolar disorder, Gennaro's thyroiditis, posterior orthostatic tachycardia syndrome who comes in with increased frequency of urination, fever and tachycardia and has been admitted as severe sepsis secondary to UTI. 1. Severe sepsis secondary to Gram negative UTI, mildly improved, still having low-grade fevers, not tachycardic Urine cultures growing gram-negative rods, blood cultures are pending Continue on Levaquin 2. Hypokalemia, resolved, recheck in am 3. Iron deficiency anemia, on po iron 4. Gennaro thyroiditis, on levothyroxine, liothyronine 5. Anxiety disorder/bipolar disorder, on Abilify, Cymbalta, lamotrigine, gabapentin 6. DVT prophylaxis with Lovenox subcu Code Visit Inpatient E&M: 08523 Subs Hosp L2
[2018-10-17] MEDS: Ferrous Sulfate 325 MG Tablet PO ×2 (14:11→16:01)
[2018-10-17 15:30] LABS: Bedside Glucose 79 mg/dL (70-110)
[2018-10-17] MEDS: Gabapentin 300 MG Capsule 900 MG PO (21:18)
--- NOTE | 2018-10-18 01:11 | NURSING ---
THIS RN TAKING OVER CARE AT THIS TIME
[2018-10-18 02:45] VITALS: PULSE 78
[2018-10-18 03:15] VITALS: BP 117/65; PULSE 67; RESP 18; TEMP 37.4; O2SAT 94
[2018-10-18 05:34] VITALS: PULSE 82
[2018-10-18] MEDS: Levothyroxine 100 MCG Tablet 200 MCG PO (05:34)
[2018-10-18] MEDS: Metoprolol Tartrate 25 MG Tablet PO (05:34)
[2018-10-18] MEDS: Acetaminophen 325 MG Tablet 650 MG PO (05:35)
[2018-10-18] MEDS: 0.9% NaCl Peripheral Flush Adult/Peds IV (05:39)
[2018-10-18 07:08] VITALS: PULSE 67
[2018-10-18 07:10] LABS: Bedside Glucose 95 mg/dL (70-110)
[2018-10-18] MEDS: ARIPiprazole 5 MG Tablet 15 MG PO (08:48)
[2018-10-18] MEDS: Gabapentin 600 MG Tablet PO (08:48)
[2018-10-18] MEDS: Enoxaparin 40 MG/0.4 ML Syringe SC (08:48)
[2018-10-18] MEDS: lamoTRIgine 100 MG Tablet 200 MG PO (08:48)
[2018-10-18] MEDS: Pantoprazole Sodium 20 MG Tablet PO (08:48)
[2018-10-18] MEDS: DULoxetine Hcl 60 MG Capsule PO (08:49)
[2018-10-18] MEDS: Cholestyramine/Sucrose 4 GM/PACKET PO (08:49)
[2018-10-18 09:00] VITALS: BP 113/56; PULSE 66; RESP 16; TEMP 36.6; O2SAT 95
[2018-10-18 09:54] LABS: Absolute Lymphocyte Count 2.38 X10^3/uL (0.83-4.51); Absolute Neutrophil Count 7.9 X10^3/uL (2.0-7.7); Basophil# 0.07 X10^3/uL; Basophil% 0.6 % (0-1); Eosinophil# 0.13 X10^3/uL; Eosinophils% 1.2 % (0-5); Hematocrit 38.3 % (37-47); Hemoglobin 12.5 g/dL (12.0-15.0); Lymphocyte # 2.38 X10^3/ul (4.0); Lymphocyte % 21.1 % (19-41); Mean Corp Hgb Conc 32.6 g/dL (32-36); Mean Corpuscular Hgb 27.7 pg (27.0-32.0); Mean Corpuscular Volume 84.9 fL (81-99); Mean Platelet Vol. 8.6 fl (6.2-12.0); Monocyte# 0.78 X10^3/uL; Monocyte% 6.9 % (0-10); NRBC Flagged by Analyzer 0 % (0-5); Neutrophil # 7.88 X10^3/uL (2.7-7.7); Neutrophil % 69.7 % (47-70); Platelet Count 296 K/mm3 (150-450); RBC Distribution Width CV 13.8 % (11.6-14.6); RBC Distribution Width SD 42.7 fl (35.1-43.9); Red Blood Count 4.51 M/mm3 (4.2-5.4); White Blood Count 11.3 K/mm3 (4.4-11.0)
--- NOTE | 2018-10-18 10:42 | DCINST_ITS ---
- Discharge Diagnoses Current Active Problems: Current Active and Chronic Problems (Last Reviewed 10/16/18 @ 22:43 by Nigel Moreira MD) Severe sepsis (Acute) UTI (urinary tract infection) (Acute) Reason(s) for Visit for Discharge Instructions: Fever, UTI You will use the following diet at home:: Regular Your food should be the consistency of: Regular Your liquids should be the consistency of: Regular/Thin Discharge Activity: Return to Normal Activity Additional Instructions: Complete your antibiotics. Continue to take all your other medications. You shold continue to hydrate yourself. Follow-up with your primary doctor within 1-2 weeks Allergies/Adverse Reactions: Allergies atropine sulfate [From ] Allergy (Verified 10/16/18 18:38) Anaphylaxis Cephalosporins Allergy (Verified 10/16/18 18:38) Anaphylaxis fluoxetine Allergy (Verified 10/16/18 18:38) Hives hyoscyamine sulfate [From ] Allergy (Verified 10/16/18 18:38) Anaphylaxis phenobarbital [From ] Allergy (Verified 10/16/18 18:38) Anaphylaxis scopolamine hydrobromide [From ] Allergy (Verified 10/16/18 18:38) Anaphylaxis divalproex sodium [From Depakote] Adverse Reaction (Verified 10/16/18 18:38) Other INSECT BITES Allergy (Uncoded 10/16/18 18:38) Swelling Medications to take at Discharge Aripiprazole 15 mg PO DAILY 10/16/18 Duloxetine Hcl [Cymbalta] 60 mg PO BID 10/16/18 Ergocalciferol (Vitamin D2) [Vitamin D2] 50,000 unit PO ADAN 10/16/18 Ferrous Sulfate 325 mg PO BID 10/16/18 Gabapentin [Neurontin] 600 mg PO DAILY 10/16/18 Gabapentin [Neurontin] 900 mg PO QHS 10/16/18 Lamotrigine [Lamictal] 200 mg PO BID 10/16/18 Levothyroxine Sodium 200 mcg PO DAILY 10/16/18 Liothyronine Sodium [Cytomel] 5 mcg PO BID 10/16/18 Meloxicam [Mobic] 15 mg PO DAILY 10/16/18 Metformin HCl 500 mg PO DAILY 10/16/18 Metoprolol Tartrate 25 mg PO TID 10/16/18 Multivit with Iron,Minerals [Multivitamins with Iron] 1 ea PO DAILY 10/16/18 Nystatin 15 gm TP BID PRN 10/16/18 Pantoprazole Sodium [Protonix] 40 mg PO DAILY 10/16/18 Levofloxacin [Levaquin] 500 mg PO DAILY #5 tab 10/18/18 The following prescriptions were given: Levofloxacin [Levaquin] 500 mg PO DAILY #5 tab Primary Care Physician: Cong Dumont MD [Primary Care Provider] - Please follow up with your Primary Care Physician in: within 1-2 weeks Test Results: Test results from this visit will be discussed in further detail at your follow- up appointment, if applicable. Proposed Discharge Date: 10/18/18
--- NOTE | 2018-10-18 10:42 | EKG12_ITS ---
Test Reason : RHYTHM Blood Pressure : / mmHG Vent. Rate : 069 BPM Atrial Rate : 069 BPM P-R Int : 212 ms QRS Dur : 090 ms QT Int : 422 ms P-R-T Axes : 046 030 056 degrees QTc Int : 452 ms Sinus rhythm with 1st degree A-V block Low voltage QRS Borderline ECG When compared with ECG of 16-OCT-2018 19:20, MANUAL COMPARISON REQUIRED, DATA IS UNCONFIRMED Confirmed by DAYAN HUFF ([id number]), editor producer RIKKI BURGOS ([id number]) on 10/28/2018 1:09:08 PM Referred By: MARTI Confirmed By:DAYAN HUFF
--- NOTE | 2018-10-18 10:44 | DS.PCM_ITS ---
Discharge Date and Diagnosis - Problem List Patient Problems: Active and Suspected Problems (Last Reviewed 10/16/18 @ 22:43 by Nigel Moreira MD) Severe sepsis (Acute) UTI (urinary tract infection) (Acute) Date of Admission: 10/16/18 Date of Discharge: 10/18/18 - Primary Discharge Diagnosis Active and Suspected Problems (Last Reviewed 10/16/18 @ 22:43 by Nigel Moreira MD) Severe sepsis (Acute) E. coli UTI (urinary tract infection) (Acute) Acute kidney injury, prerenal, secondary to sepsis, resolved Hypokalemia Iron deficiency anemia - Secondary Discharge Diagnosis Bipolar disorder Gennaro's thyroiditis Postural orthostatic tachycardia syndrome Hospital Course and Treatment Imaging Results: Clinical Impression(s) from Imaging Studies Chest X-Ray 10/16/18 18:55 IMPRESSION: Left basilar atelectasis at 1911 Reported and signed by: Cathleen Casey DO Electronically Signed: Cathleen Casey DO at 19:10 EDT Tel , Service support , None Operations: None Procedures: None Summary of Care Provided: 58-year-old female with past medical history of bipolar disorder, Gennaro's thyroiditis, postural orthostatic tachycardia syndrome who comes in with increased frequency of urination, fever and tachycardia and has been admitted as severe sepsis secondary to UTI. Admitting lactic acid was 3.3, potassium was 3.3, creatinine was 1.12 and a patient with baseline creatinine less than 1. Patient was admitted to telemetry floor, managed on IV fluid. Creatinine improved to less than 1 with IV fluids. Her lactic acid also improved to 1.8. Patient was maintained on IV Levaquin because of multiple allergies. Urine cultures came back positive for E. coli. Patient was discharged on 5 more days of p.o. Levaquin making 1 week total antibiotic treatment. Patient Problems: Active and Suspected Problems (Last Reviewed 10/16/18 @ 22:43 by Nigel Moreira MD) Severe sepsis (Acute) UTI (urinary tract infection) (Acute) Subjective: The day of discharge, patient was seen and examined. Denied any new complaints. Denied fever or chills or diarrhea Objective: Physical Exam General: Alert, Oriented x3, Cooperative, obese HEENT: Atraumatic, PERRLA, EOMI, Normocephalic Neck: Supple, No JVD, Negative Carotid Bruits Lungs: Clear to auscultation, Normal air movement, Tachypneic Cardiovascular: No murmurs, Tachycardic Abdomen: Bowel Sounds Present, Soft, Non Tender Extremities: No edema, Capillary Refill Less than 3 Seconds Skin: No rashes, No breakdown Musculoskeletal: No Tenderness to Palpation of Joints or Extremities Neurological: Cranial nerves II-XII grossly intact Psych/Mental Status: Normal Affect, Appropriate - Physical Exam Vital Signs Temp Pulse Resp BP Pulse Ox 98 F 66 16 113/56 L 95 10/18/18 09:00 10/18/18 09:00 10/18/18 09:00 10/18/18 09:00 10/18/18 09:00 Oxygen Delivery Method Room Air Weight: 102.4 kg Body Mass Index (BMI) 41.3 Intake and Output for Last 24 Hours 10/16/18 10/17/18 10/18/18 23:59 23:59 23:59 Intake Total 1363.75 / 1363.75 3145 / 3445 400 / 400 Output Total 200 / 200 Balance 1363.75 / 1363.75 2945 / 3245 400 / 400 Microbiology Past 72 Hours 10/16/18 19:25 Urine Culture - Final Urine Catheter - Catheter Escherichia coli Laboratory Tests Past 24 Hrs 10/18/18 10/18/18 09:34 09:34 WBC 11.3 H RBC 4.51 Hgb 12.5 Hct 38.3 MCV 84.9 MCH 27.7 MCHC 32.6 RDW Std Deviation 42.7 RDW Coeff of Vini 13.8 Plt Count 296 MPV 8.6 Immature Gran % (Auto) 0.500 Neut % (Auto) 69.7 Lymph % (Auto) 21.1 [place] % (Auto) 6.9 Eos % (Auto) 1.2 Baso % (Auto) 0.6 Absolute Neuts (auto) 7.9 H Absolute Lymphs (auto) 2.38 Nucleated RBC % 0 Sodium Pending Potassium Pending Chloride Pending Carbon Dioxide Pending Anion Gap Pending BUN Pending Creatinine Pending Est GFR (MDRD) Af Amer Pending Est GFR (MDRD) Non-Af Pending BUN/Creatinine Ratio Pending Glucose Pending Calcium Pending POC Glucose 10/18/18 10/17/18 10/17/18 06:45 15:23 11:18 POC Glucose 95 79 107 Discharge Diet: No Restrictions Discharge Activity: Return to Normal Activity Home Medications: Medications to take at Discharge Aripiprazole 15 mg PO DAILY 10/16/18 Duloxetine Hcl [Cymbalta] 60 mg PO BID 10/16/18 Ergocalciferol (Vitamin D2) [Vitamin D2] 50,000 unit PO ADAN 10/16/18 Ferrous Sulfate 325 mg PO BID 10/16/18 Gabapentin [Neurontin] 600 mg PO DAILY 10/16/18 Gabapentin [Neurontin] 900 mg PO QHS 10/16/18 Lamotrigine [Lamictal] 200 mg PO BID 10/16/18 Levothyroxine Sodium 200 mcg PO DAILY 10/16/18 Liothyronine Sodium [Cytomel] 5 mcg PO BID 10/16/18 Meloxicam [Mobic] 15 mg PO DAILY 10/16/18 Metformin HCl 500 mg PO DAILY 10/16/18 Metoprolol Tartrate 25 mg PO TID 10/16/18 Multivit with Iron,Minerals [Multivitamins with Iron] 1 ea PO DAILY 10/16/18 Nystatin 15 gm TP BID PRN 10/16/18 Pantoprazole Sodium [Protonix] 40 mg PO DAILY 10/16/18 Levofloxacin [Levaquin] 500 mg PO DAILY #5 tab 10/18/18 Following Prescrptions Were Given to Patient: Levofloxacin [Levaquin] 500 mg PO DAILY #5 tab Transmission Status: Received by [facility]/pharmacy #[id number] Primary Care Physician: Cong Dumont MD [Primary Care Provider] - Please follow up with your Primary Care Physician in: within 1-2 weeks Disposition: Home Minutes spent on discharge:: 40 Patient Condition:: Stable Medical Necessity - Tobacco Use Smoking Status: Former smoker Tobacco Use: Non-smoker Meaningful Use Info Meaningful Use Diagnoses (Choose all that apply): None applicable Code Visit Inpatient E&M: 71787 Disch Hosp
[2018-10-18] MEDS: levoFLOXacin IV 750 MG/150 ML BAG 100 MG IV (10:56)
[2018-10-18 11:18] LABS: Anion Gap 5 (5-15); BUN 7 mg/dL (7-18); BUN/Creat Ratio 7.3 RATIO (10-20); Calcium,Total 8.8 mg/dL (8.5-10.1); Chloride 109 mmol/L (98-107); Creatinine, Serum 0.96 mg/dL (0.55-1.02); EST Glomerular Filtration Rate 64 mL/min (>60); Est Glom Filt Rate - Afr Amer 77 mL/min (>60); Glucose 141 mg/dL (74-106); Potassium 3.3 mmol/L (3.5-5.1); Sodium Level 138 mmol/L (136-145)
== END 2018-10-18 13:33 | disposition home or self-care (01) | DRG 463 ==
LOC: ED 21:02 → PCU 21:45
PROVIDERS: Admitting Provider Hospitalist; Emergency Provider Emergency Medicine; Family Provider Family Medicine; PCP Family Medicine; Visit Provider Internal Medicine
DX: N39.0 Urinary tract infection, site not specified (principal); E87.6 Hypokalemia; F31.81 Bipolar II disorder; D50.9 Iron deficiency anemia, unspecified; E06.3 Autoimmune thyroiditis; Z88.3 Allergy status to other anti-infective agents; B96.20 Unspecified Escherichia coli [E. coli] as the cause of diseases classified elsewhere; I49.8 Other specified cardiac arrhythmias; E66.9 Obesity, unspecified; Z68.41 Body mass index [BMI] 40.0-44.9, adult
CPT/HCPCS: 36415; 71045; 80048; 80053; 81001; 82962; 83605; 85025; 87040; 87077; 87086; 87088; 87186; 93005; 97802; 99285; J7030; A4216; J0744

== ENCOUNTER 2019-04-07 15:45 | Inpatient (IN) | payer MEDICAID, SELFPAY ==
[2018-10-16 22:37] VITALS: BMI 41.3
[2019-04-07 15:46] VITALS: BP 152/99; PULSE 97; RESP 18; TEMP 36.4; O2SAT 99; BMI 39.3
[2019-04-07 16:45] VITALS: PULSE 87; RESP 17; TEMP 36.7; O2SAT 95
--- NOTE | 2019-04-07 16:50 | RAD_ITS ---
STUDY: X-RAY - RIGHT FOOT CLINICAL: Female, 58 years old. PT WITH WOUND ON RIGHT FOOT BETWEEN 4TH AND 5TH DIGITS X 3 MONTHS. SENT IN BY FLIGHT DIRECTOR. TECHNIQUE: 3 view(s) of the foot. COMPARISON: None. FINDINGS: Normal talus, calcaneus, and tarsal bones. Normal visualized subtalar, talonavicular, calcaneocuboid, tarsal and tarsometatarsal articulations. Normal metatarsi. Normal metatarsophalangeal joint of the great toe. Normal tibial and fibular sesamoid bones. Normal interphalangeal joint of the great toe. Normal phalanges of the great toe. Normal second through fifth metatarsophalangeal joints. There is destruction of the medial cortex of the head and neck of the fifth proximal phalanx worrisome for osteomyelitis. The soft tissue structures are unremarkable. RAD/Foot min 3 Views IMPRESSION: Suspect osteomyelitis of the fifth proximal phalanx. Electronically Signed: Osmin Dumont MD at 17:05 EST Tel , Service support ,
[2019-04-07 17:00] VITALS: TEMP 36.7
[2019-04-07 17:03] LABS: Absolute Lymphocyte Count 3.14 X10^3/uL (0.83-4.51); Basophil# 0.08 X10^3/uL; Basophil% 0.9 % (0-1); Eosinophil# 0.08 X10^3/uL; Eosinophils% 0.9 % (0-5); Hematocrit 46.4 % (37-47); Hemoglobin 15.5 g/dL (12.0-15.0); Lymphocyte # 3.14 X10^3/ul (4.0); Lymphocyte % 34.6 % (19-41); Mean Corp Hgb Conc 33.4 g/dL (32-36); Mean Corpuscular Volume 86.7 fL (81-99); Mean Platelet Vol. 9.7 fl (6.2-12.0); Monocyte# 0.75 X10^3/uL; Monocyte% 8.3 % (0-10); NRBC Flagged by Analyzer 0 % (0-5); Neutrophil # 4.99 X10^3/uL (2.7-7.7); Neutrophil % 54.9 % (47-70); Platelet Count 332 K/mm3 (150-450); RBC Distribution Width CV 14.6 % (11.6-14.6); RBC Distribution Width SD 46.2 fl (35.1-43.9); Red Blood Count 5.35 M/mm3 (4.2-5.4); White Blood Count 9.1 K/mm3 (4.4-11.0)
[2019-04-07] MEDS: 0.9% Normal Saline 1,000 ML 150 ML IV (17:04)
[2019-04-07 17:13] LABS: Erythrocyte Sedimentation Rate 26 mm/hr (0-30)
[2019-04-07 17:14] LABS: International Normalized Ratio 1.1; Partial Thromboplast Time 30.6 Seconds (24.1-36.2)
[2019-04-07 17:21] LABS: ALB/GLOB Ratio 0.8 RATIO (0.9-2.4); AST(SGOT) 29 U/L (15-37); Alanine Aminotransfer ALT/SGPT 37 U/L (13-56); Albumin, Serum 3.8 g/dL (3.2-5.0); Alkaline Phosphatase 105 U/L (45-117); Anion Gap 9 (5-15); BUN 15 mg/dL (7-18); BUN/Creat Ratio 13.8 RATIO (10-20); CRP 9.63 mg/L (0.0-3.0); Calcium,Total 9.3 mg/dL (8.5-10.1); Chloride 107 mmol/L (98-107); Creatinine, Serum 1.09 mg/dL (0.55-1.02); EST Glomerular Filtration Rate 54 mL/min (>60); Est Glom Filt Rate - Afr Amer 66 mL/min (>60); Estimated Creatinine Clearance 43.95 ml/min; Globulin 4.5 g/dL (2.2-4.2); Glucose 93 mg/dL (74-106); Potassium 3.6 mmol/L (3.5-5.1); Protein, Total 8.3 g/dL (6.4-8.2); Sodium Level 139 mmol/L (136-145)
[2019-04-07 17:31] LABS: Lactic Acid 1.6 mmol/L (0.4-1.9)
[2019-04-07 17:46] LABS: Mucous, Urine 0 SEEN /hpf (<or=2+)
[2019-04-07 17:55] LABS: Color, Urine Yellow (Yellow); Glucose, Dipstick Normal (Normal); Ketone-Dipstick 50 mg/dl (Negative); Leukocyte Esterase-Dipstick 500 /ul (Negative); Nitrite-Dipstick Negative (Negative); Occult Blood-Urine 250 /ul (Negative); Protein-Dipstick 100 mg/dl (Negative); Specific Gravity, Urine 1.025 (1.002-1.030); Urine Bilirubin Dipstick 3 mg/dL (Negative); Urine Clarity Cloudy (Clear); Urine Urobilinogen 4 mg/dl (Normal)
[2019-04-07 18:03] LABS: Bacteria 2+ /hpf (None Seen)
[2019-04-07 18:04] LABS: Red Blood Cells-Urine 5-10 SEEN /hpf (0-5); Transitional Epithelial - Ur 0-5 SEEN /hpf (0-5)
[2019-04-07 18:07] LABS: Squamous Epithelial Cells - UA 10-25 SEEN /hpf (5-10); White Blood Cells >100 SEEN /hpf (0-5)
[2019-04-07 18:18] VITALS: PULSE 98; RESP 19; O2SAT 99
--- NOTE | 2019-04-07 18:22 | NURSING ---
MED SURG TESTRAKE OSTEOMYELITIS
--- NOTE | 2019-04-07 18:24 | CON.PCM_ITS ---
Problem List (1) Osteomyelitis Status: Acute Qualifiers: Osteomyelitis type: unspecified type Osteomyelitis location: foot Laterality: right Qualified Code(s): M86.9 - Osteomyelitis, unspecified (2) Anxiety and depression Status: Chronic (3) Bipolar disorder Status: Chronic Qualifiers: Active/Remission status: remission status unspecified Qualified Code(s): F31.9 - Bipolar disorder, unspecified (4) Obesity (BMI 30-39.9) Status: Chronic (5) History of Gennaro thyroiditis Status: Chronic (6) Postural orthostatic tachycardia syndrome Status: Chronic Reason for Consult Date of Consultation: 04/07/19 Reason for Consultation: Wound b/w R 5th-4th toe, increased pain, redness, rabia a, drainage, fever, chills, nausea x 1 week. History of Present Illness: The patient is a 58 y/o F w/ PMHx: Anxiety and Depression/Bipolar disorder, GERD, Fe deficiency anemia, Hx Gennaro's Thyroiditis, Hx Postural Orthostatic Tachycardic Syndrome, Chronic Diarrhea, Obesity, History of ongoing chronic wound for the last approximately 3 months between the right fifth and fourth toes following with Dr. 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 Work-up in the ED included T 97.5, heart rate 97, BP 152/99, respiratory rate 18, 99% on room air, CBC with WC 9.1, hemoglobin 15.5, platelet 332 without shift, unremarkable coags, ESR 26, CMP with BUN/creatinine 15/1.09, lactic acid 1.6, CRP 9.63, urinalysis pending, plain film of the right foot with suspected osteomyelitis of the fifth proximal phalanx, blood culture x2 pending, urine culture x1 pending, Gram stain of the toe wound pending per ED. in the ED patient ministered normal saline, vancomycin, Zosyn therapy. Dr. Johnson requested medicine consultation upon admission. Past Medical History Past Medical History (Chronic Problems): Chronic Problems (Last Reviewed 10/16/18 @ 22:[address] Ngiel Moreira MD) Anxiety and depression (Chronic) Bipolar disorder (Chronic) Obesity (BMI 30-39.9) (Chronic) History of Gennaro thyroiditis (Chronic) Postural orthostatic tachycardia syndrome (Chronic) Medical History: Medical History (Last Reviewed 10/16/18 @ 22:[address] Nigel Moreira MD) Gennaro's thyroiditis E06.3 Postural orthostatic tachycardia syndrome R00.0, I95.1 Allergies atropine sulfate [From ] Allergy (Verified 04/07/19 15:45) Anaphylaxis Cephalosporins Allergy (Verified 04/07/19 15:45) Anaphylaxis fluoxetine Allergy (Verified 04/07/19 15:45) Hives hyoscyamine sulfate [From ] Allergy (Verified 04/07/19 15:45) Anaphylaxis phenobarbital [From ] Allergy (Verified 04/07/19 15:45) Anaphylaxis scopolamine hydrobromide [From ] Allergy (Verified 04/07/19 15:45) Anaphylaxis divalproex sodium [From Depakote] Adverse Reaction (Verified 04/07/19 15:45) Other INSECT BITES Allergy (Uncoded 04/07/19 15:45) Swelling Home Medications: Ambulatory Orders Medication Instructions Recorded Aripiprazole 15 mg PO DAILY 10/16/18 Duloxetine Hcl [Cymbalta] 60 mg PO BID 10/16/18 Ergocalciferol (Vitamin D2) 50,000 unit PO ADAN 10/16/18 [Vitamin D2] Ferrous Sulfate 325 mg PO BID 10/16/18 Gabapentin [Neurontin] 600 mg PO DAILY 10/16/18 Gabapentin [Neurontin] 900 mg PO QHS 10/16/18 Levothyroxine Sodium 200 mcg PO DAILY 10/16/18 Liothyronine Sodium [Cytomel] 5 mcg PO BID 10/16/18 Meloxicam [Mobic] 15 mg PO DAILY 10/16/18 Metoprolol Tartrate 25 mg PO TID 10/16/18 Pantoprazole Sodium [Protonix] 40 mg PO DAILY 10/16/18 Hydroxyzine HCl 50 mg PO QHS 04/07/19 Surgical History: cholecystectomy Psychiatric History: Anxiety, Bipolar, Depression EGG SMELLER History: No pertinent EGG SMELLER history Lives: Alone Smoking Status: Former smoker - Patient smoked approximately 3 cigarettes/day from the age of 48 until approximately 6 years ago. Tobacco Use: Non-smoker Alcohol: None Drugs: None - *Family History Maternal History Items: Cancer, - - Mother with a history of colon cancer and mild dementia. Paternal History Items: - - Father with a history of alcoholism and prostate cancer. Review of Systems Constitutional: Reports: Anorexia, Chills, Fever, Malaise, Weakness, Fatigue. Denies: Weight Change HEENT: Denies: Head Aches, Sinus Congestion, Sinus Drainage Cardiovascular: Denies: Chest Pain, Palpitations Respiratory: Denies: Cough, Shortness of breath at rest, Sputum production Gastrointestinal: Reports: Diarrhea, Nausea. Denies: Abdominal Pain, Vomiting Genitourinary: Denies: Dysuria Musculoskeletal: Reports: Foot Pain. Denies: Joint Pain, Joint Tenderness Skin: Reports: Skin Changes, Wounds. Denies: Rash Neurological: Denies: Numbness, Tingling, Focal weakness Psychiatric: Reports: Anxiety, Depression. Denies: Homicidal Ideations, Suicidal Ideations Hematologic/ Lymphatic: Reports: Anemia. Denies: Easy Bruising, Easy Bleeding Patient Problems: Active and Suspected Problems (Last Reviewed 10/16/18 @ 22:[address] Nigel Moreira MD) Osteomyelitis (Acute) Subjective: Seated upright in the ED bed, no acute distress, pain primarily with evaluation. Objective: Physical Examination: General: awake, alert, oriented x 3 and cooperative, seated upright in the ED bed, no obvious distress, uncomfortable with evaluation only. Skin: normal color, turgor, no icterus, cyanosis except noted wound between the right fourth and fifth toes, no current drainage but was previously, extremely tender to palpation, erythema to the region focally, mild edema concurrently. HEENT: AT/NC, EOMI, PERRLA, MMM, no carotid bruits or JVD noted. Lungs: CTA bilaterally, moderate effort, moderate decrease BL bases, no rales, ronchi or wheezing. Heart: Regular rate and rhythm; no gallop, rub audible. Abdomen: soft, obese, NTTP, ND, normal BS, no HSM. Extremities: no cyanosis, clubbing, or market edema except focally as noted in skin. Neurological: patient awake, alert, oriented x 3; cognitive function intact; pupils equally reactive to light and accomodation; cranial nerves II-XII grossly normal, moving all 4 extremities, no focal deficits, strength moderately global decrease secondary to acute presentation complaints. Psychiatric: affect appears normal, no acute evidence of depressive or anxiety feelings. - Physical Exam Vitals/I&O's: Vital Signs Temp Pulse Resp BP Pulse Ox 98.1 F 98 19 H 152/99 H 99 04/07/19 17:00 04/07/19 18:18 04/07/19 18:18 04/07/19 15:46 04/07/19 18:18 Oxygen Delivery Method Room Air Weight: 215 lb 2.738 oz Body Mass Index (BMI) 39.3 Intake and Output for Last 24 Hours 04/05/19 04/06/19 04/07/19 23:59 23:59 23:59 Intake Total 100 / 100 Balance 100 / 100 Laboratory Results 04/07/19 16:50: WBC 9.1, RBC 5.35, Hgb 15.5 H, Hct 46.4, MCV 86.7, MCH 29.0, MCHC 33.4, RDW Std Deviation 46.2 H, RDW Coeff of Vini 14.6, Plt Count 332, MPV 9.7, Immature Gran % (Auto) 0.400, Neut % (Auto) 54.9, Lymph % (Auto) 34.6, [place] % (Auto) 8.3, Eos % (Auto) 0.9, Baso % (Auto) 0.9, Absolute Neuts (auto) 5.0, Absolute Lymphs (auto) 3.14, Nucleated RBC % 0, ESR 26 04/07/19 16:50: PT 14.0, INR 1.1, APTT 30.6 04/07/19 16:50: Sodium 139, Potassium 3.6, Chloride 107, Carbon Dioxide 23.0, Anion Gap 9, BUN 15, Creatinine 1.09 H, Estim Creat Clear Calc 43.95, Est GFR (MDRD) Af Amer 66, Est GFR (MDRD) Non-Af 54 L, BUN/Creatinine Ratio 13.8, Glucose 93, Calcium 9.3, Total Bilirubin 0.90, AST 29, ALT 37, Alkaline Phosphatase 105, C-React Prot Ext Range 9.63 H, Total Protein 8.3 H, Albumin 3.8, Globulin 4.5 H, Albumin/Globulin Ratio 0.8 L 04/07/19 16:50: Lactic Acid 1.6 04/07/19 17:40: Urine Color Yellow, Urine Clarity Cloudy, Urine pH 5.0, Ur Specific [place] 1.025, Urine Protein 100 H, Urine Glucose (UA) Normal, Urine Ketones 50 H, Urine Occult Blood 250 H, Urine Nitrite Negative, Urine Bilirubin 3 H, Urine Urobilinogen 4 H, Ur Leukocyte Esterase 500 H, Urine RBC 5-10 SEEN, Urine WBC >100 SEEN, Ur Squamous Epith Cells 10-25 SEEN, Ur Transition Epith Cell 0-5 SEEN, Urine Bacteria 2+, Urine Mucus 0 SEEN 04/07/19 17:40: S.aureus Protein A PCR Pending, MRSA (PCR) Pending Current Medications Sodium Chloride () 1,000 mls @ 150 mls/hr IV .[id number] DEBI Last Admin: 04/07/19 17:04 Dose: 150 mls/hr Documented by: Vancomycin HCl 1,500 mg/ (Sodium Chloride) 530 mls @ 250 mls/hr IV X1 ONE Stop: 04/07/19 18:37 Last Admin: 04/07/19 18:11 Dose: 250 mls/hr Documented by: Assessment/Plan All Active Problems (Last Reviewed 10/16/18 @ 22:[address] Nigel Moreira MD) Severe sepsis (Acute) UTI (urinary tract infection) (Acute) Osteomyelitis (Acute) The patient is a 58 y/o F w/ PMHx: Anxiety and Depression/Bipolar disorder, GERD, Fe deficiency anemia, Hx Gennaro's Thyroiditis, Hx SVT, Hx Postural Orthostatic Tachycardic Syndrome, Chronic Diarrhea, Obesity, History of ongoing chronic wound for the last approximately 3 months between the right fifth and fourth toes following with Dr. 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 1. Acute osteomyelitis Right 5th Proximal Phalanx with chronic nonhealing wound: Plan admission per primary service Dr. Johnson with requested medicine consultation, plan admission to medical surgical floor, planned continuation of IV vancomycin and Zosyn, oral and IV narcotic therapy PRN, PRN antiemetics, planned ULICES PVR evaluation as well as MRI of the foot with IV contrast, nonweightbearing status to the foot, planned allowance of clears up until 8 AM with n.p.o. status following. Continue patient home chronic Neurontin regimen. 2. History of SVT: We will continue patient home metoprolol regimen. 3. Hx POTS: History of POTS remotely, cautious with position changes, monitor VS. 4. Anxiety and depression/bipolar disorder: We will continue patient home Cymbalta, rep resolved, hydroxyzine regimen. 5. History of Gennaro's thyroiditis: We will continue patient home levothyroxine regimen. 6. Obesity: Weight loss and lifestyle changes encouraged. 7. History of iron deficiency anemia: Admission hemoglobin 15.5, will continue iron supplementation. 8. Chronic diarrhea: Notes chronic diarrhea following cholecystectomy, improved with cholestyramine, will continue, if needed may consider addition of antidiarrheal regimen although given ongoing recent antibiotic therapy may necessitate evaluation of stool prior. 9. GERD: Continue patient home PPI. 10. DVT prophylaxis: SCDs, defer chemoprophylaxis given planned operative intervention per discretion of primary service. Code Visit Office Visits / Consults: [id number] IP Consult L4
[2019-04-07 18:34] VITALS: BMI 39.4
--- NOTE | 2019-04-07 18:38 | ART_ITS ---
Reason For Study: Osteomyelitis, Non healing wound Procedure A bilateral lower extremity continuous wave Doppler with analog waveform analysis and ankle brachial indexes. Left Segmental Pressures Left posterior tibial artery = 156mmHg. Left dorsalis pedis artery = 132mmHg. Left digit = 110 mmHg. Right Segmental Pressures Right brachial= 128mmHg. Right posterior tibial artery = 134mmHg. Right dorsalis pedis artery = 140mmHg. Right digit = 106 mmHg. Indices The right ankle brachial index by the posterior tibial artery is 1.05. The right ankle brachial index by the dorsalis pedis is 1.09. The right digital-brachial index is 0.83. The left ankle brachial index by the posterior tibial artery is 1.22. The left ankle brachial index by the dorsalis pedis is 1.03. The left digital-brachial index is 0.86. Interpretation Summary Normal bilateral lower extremity ankle-brachial indices and triphasic Doppler waveforms. Normal bilateral digital brachial indices Ordering Physician: Melanie Frias Referring Physician: Cong Dumont Performed By: Ansley Howard RDCS/RVT
[2019-04-07 19:00] LABS: M R Staph aureus DNA By PCR Negative (Negative); Probe Check PASS; Staph aureus DNA By PCR POSITIVE (Negative)
[2019-04-07 19:13] LABS: Magnesium 2.1 mg/dL (1.6-2.6)
--- NOTE | 2019-04-07 19:14 | PCM.RX.CS ---
Consult Pharmacy has been consulted to manage selected antiobiotic: Vancomycin Type of Consult: New start Suspected Infection: Osteomyelitis Prior Doses of Antibiotics Received/Current Regimen: Received 1500mg in E.R. at 18:11 tonight Labs: Sodium 139 mmol/L (136-145) 04/07/19 16:50 Potassium 3.6 mmol/L (3.5-5.1) 04/07/19 16:50 Chloride 107 mmol/L (98-107) 04/07/19 16:50 Carbon Dioxide 23.0 mmol/L (21.0-32.0) 04/07/19 16:50 Anion Gap 9 (5-15) 04/07/19 16:50 BUN 15 mg/dL (7-18) 04/07/19 16:50 Creatinine 1.09 mg/dL (0.55-1.02) H 04/07/19 16:50 Est GFR (MDRD) Af Amer 66 mL/min (>60) 04/07/19 16:50 Est GFR (MDRD) Non-Af 54 mL/min (>60) L 04/07/19 16:50 BUN/Creatinine Ratio 13.8 RATIO (10-20) 04/07/19 16:50 Glucose 93 mg/dL (74-106) 04/07/19 16:50 Weight used for dosin.6 kg Estimated Creatinine Clearance: 60.6ml/min Goal Trough: 15-20 mcg/mL Pharmacy Plan for Drug Dosing: Continue with 1250mg IV q12h per the [facility] pharmacist dosing protocol. Since the patient's dose in E.R. was 15mg/kg and not the full loading dose as ordered on admission, will start the first 1250mg dose sooner than 12 hours after the E.R. dose. A trough will be ordered to be drawn before the 4th total dose. The patient's CrCl of 60.6 ml/min was calculated using an adjusted body weight of 69.1kg. Pharmacy Service will continue to monitor and adjust dosing as required. Follow-Up Labs: Trough Vancomycin Labs to be done on [date and time ordered]: 04/09/19 03:30
[2019-04-07 19:37] VITALS: BP 135/81; PULSE 84; RESP 16; TEMP 36.4; O2SAT 97
[2019-04-07 19:38] VITALS: BMI 39.4
[2019-04-07] MEDS: 0.9% Normal Saline 1,000 ML 125 ML IV (19:48)
--- NOTE | 2019-04-07 19:52 | ED.VISSUMM ---
- ER Visit Summary Date of Service: 04/07/19 Chief Complaint: Right foot infection History of Present Illness: The patient is a [address] Dumont and Dr. Johnson. She reports that she had a wound in between her right fourth and fifth toes that began 3 to 4 months ago and it started as a fungal infection. She states that over the past week she began having swelling and pain in the area. States that it is been oozing pus for the past 2 days. Patient reports she has a dull, aching pain is 6 out of 10 at worst and 3-10 currently. Is worsened by movement and relieved by rest. She reports he has chronic paresthesias around the wound, but she denies any other paresthesias in her foot. Patient reports that she has subjective fever and chills. She has dysuria this been present for years. Physical Examination: Vitals: Stable. Afebrile. General: Well-nourished and well-developed. Head: Normocephalic atraumatic. Neck: Supple, no lymphadenopathy. No JVD. Nontender. Cardiovascular: Regular rate and rhythm. No murmurs. Respiratory: No respiratory distress. Clear to auscultation bilaterally. Abdominal: Soft, nontender, nondistended, normal bowel sounds. No guarding, rebound, or peritoneal signs. Back: Nontender. Extremities: Right foot has a dime sized ulcer in between her fourth and fifth toes with minimal surrounding erythema. There is no induration or fluctuance. I am unable to palpate a dorsalis pedis pulse. Skin: Normal color, no rash. Neurologic: Alert and oriented ?3. Cranial nerves II through XII are intact. Normal strength and sensation. Psych: Normal affect. Test Results: CBC shows a hemoglobin of 15.5. Sed rate is normal at 26. CRP is 9.63. The wound is MRSA positive by PCR. Chem-7 shows a creatinine of 1.09. Coags are normal. UA has greater than 100 whites, but there are also 10-25 epithelial cells. LFTs show total protein of 8.3 and globulin of 4.5. Clinical Impression(s) from Imaging Studies Foot X-Ray 04/07/19 16:50 IMPRESSION: Suspect osteomyelitis of the fifth proximal phalanx. Electronically Signed: Osmin Dumont MD at 17:05 EST Tel , Service support , Emergency Department Course and Treatment: Patient had an IV placed. She was given Zosyn and vancomycin IV. She refused pain medications. Treatment Plan: The patient was discussed with Dr. Johnson and Dr. Frias. She will be admitted to the hospital for further evaluation and treatment. Disposition: Admitted in stable condition. Impression: 1. Osteomyelitis proximal phalanx right fifth toe. This note was generated with [employer] dictation software. It may contain incorrect words, spelling, and punctuation that were not noted in review of the chart prior to signing ED Disposition - Plan for ED Patient: Disposition: Acute Care Hospital [facility]
--- NOTE | 2019-04-07 20:43 | PCM.HP.STD ---
History of Present Illness Date of Admission: 04/07/19 Chief Complaint: nonhealing wound of right foot The patient is a 58 year old F with nonhealing wound of right 5th toe. she has had this wound for several months but has failed to present to office until 2 weeks ago. when she finally presented to my clinic, she was informed of possible osteomyelitis of right 5th toe. she was recommended admission to the hospital but could not present initially because she had other activities to address. She was placed on antibiotic as precaution. Patient presented to my clinic today. she states that the 5th toe has some drainage to it and she has pain. she would like to proceed with admission now to hospital and proceed with amputation. Past Medical History Past Medical History (Chronic Problems): Chronic Problems (Last Reviewed 05/08/19 @ 13:[address] Navin Johnson, WENDI) Anxiety and depression (Chronic) Bipolar disorder (Chronic) Obesity (BMI 30-39.9) (Chronic) History of Gennaro thyroiditis (Chronic) Postural orthostatic tachycardia syndrome (Chronic) Medical History: Medical History (Last Reviewed 05/08/19 @ 13:[address] Navin Johnson, WENDI) Postural orthostatic tachycardia syndrome (Acute) R00.0, I95.1 Gennaro's thyroiditis (Acute) E06.3 Allergies atropine sulfate [From ] Allergy (Verified 04/07/19 15:45) Anaphylaxis Cephalosporins Allergy (Verified 04/07/19 15:45) Anaphylaxis fluoxetine Allergy (Verified 04/07/19 15:45) Hives hyoscyamine sulfate [From ] Allergy (Verified 04/07/19 15:45) Anaphylaxis phenobarbital [From ] Allergy (Verified 04/07/19 15:45) Anaphylaxis scopolamine hydrobromide [From ] Allergy (Verified 04/07/19 15:45) Anaphylaxis divalproex sodium [From Depakote] Adverse Reaction (Verified 04/07/19 15:45) Other INSECT BITES Allergy (Uncoded 04/07/19 15:45) Swelling Home Medications: Ambulatory Orders Medication Instructions Recorded Aripiprazole 15 mg PO DAILY 10/16/18 Duloxetine Hcl [Cymbalta] 60 mg PO BID 10/16/18 Ergocalciferol (Vitamin D2) 50,000 unit PO ADAN 10/16/18 [Vitamin D2] Ferrous Sulfate 325 mg PO BID 10/16/18 Gabapentin [Neurontin] 600 mg PO DAILY 10/16/18 Gabapentin [Neurontin] 900 mg PO QHS 10/16/18 Levothyroxine Sodium 200 mcg PO DAILY 10/16/18 Liothyronine Sodium [Cytomel] 5 mcg PO BID 10/16/18 Meloxicam [Mobic] 15 mg PO DAILY 10/16/18 Metoprolol Tartrate 25 mg PO TID 10/16/18 Pantoprazole Sodium [Protonix] 40 mg PO DAILY 10/16/18 Hydroxyzine HCl 50 mg PO QHS 04/07/19 Amoxicillin/Potassium Clav 1 ea PO BID #28 tab 04/11/19 [Augmentin 875-125 Tablet] Doxycycline 100 mg PO BID #28 cap 04/11/19 Surgical History: cholecystectomy Psychiatric History: Anxiety, Bipolar, Depression LEGAL AIDE History: No pertinent LEGAL AIDE history Lives: Alone Smoking Status: Former smoker - Patient smoked approximately 3 cigarettes/day from the age of 48 until approximately 6 years ago. Tobacco Use: Non-smoker Alcohol: None Drugs: None - *Family History Maternal History Items: Cancer, - - Mother with a history of colon cancer and mild dementia. Paternal History Items: - - Father with a history of alcoholism and prostate cancer. Review of Systems Constitutional: Denies: Chills, Fever, Weight Change Cardiovascular: Denies: Chest Pain, Palpitations Respiratory: Denies: Cough, Shortness of breath at rest, Sputum production Musculoskeletal: Reports: Foot Pain Skin: Reports: Wounds Psychiatric: Reports: Anxiety VTE Information - Inpt Only VTE Present on Admission: No VTE Mechan Device Prophylaxis: SCD's VTE Pharm Prophylaxis ordered?: Yes Objective: patient is alert and orientated x 3. she does not appear in any distress vascular: DP and pt pulses faint to right foot but palpable. cft is brisk. skin temperature is warm to warm. mild redness to right 5th toe derm: there is full thickness wound to right 5th toe, medial aspect. there is mild maceration of right 4th interspace. there is serous drainage but no purulence. there is swelling of right 5th toe. m/s: there is swelling of right 5th toe. there is slight lateral subluxation of right 5th toe at pipj. xrays confirm osteomyelitis of right 5th toe proximal phalanx. - Physical Exam Vitals/I&O's: Vital Signs Temp Pulse Resp BP Pulse Ox 97.5 F L 84 16 135/81 H 97 04/07/19 19:37 04/07/19 19:37 04/07/19 19:37 04/07/19 19:37 04/07/19 19:37 Oxygen Delivery Method Room Air Weight: 97.8 kg Body Mass Index (BMI) 39.4 Intake and Output for Last 24 Hours 04/05/19 04/06/19 04/07/19 23:59 23:59 23:59 Intake Total 267.5 / 267.5 Balance 267.5 / 267.5 Laboratory Results 04/07/19 16:50: WBC 9.1, RBC 5.35, Hgb 15.5 H, Hct 46.4, MCV 86.7, MCH 29.0, MCHC 33.4, RDW Std Deviation 46.2 H, RDW Coeff of Vini 14.6, Plt Count 332, MPV 9.7, Immature Gran % (Auto) 0.400, Neut % (Auto) 54.9, Lymph % (Auto) 34.6, [place] % (Auto) 8.3, Eos % (Auto) 0.9, Baso % (Auto) 0.9, Absolute Neuts (auto) 5.0, Absolute Lymphs (auto) 3.14, Nucleated RBC % 0, ESR 26 04/07/19 16:50: PT 14.0, INR 1.1, APTT 30.6 04/07/19 16:50: Sodium 139, Potassium 3.6, Chloride 107, Carbon Dioxide 23.0, Anion Gap 9, BUN 15, Creatinine 1.09 H, Estim Creat Clear Calc 43.95, Est GFR (MDRD) Af Amer 66, Est GFR (MDRD) Non-Af 54 L, BUN/Creatinine Ratio 13.8, Glucose 93, Calcium 9.3, Total Bilirubin 0.90, AST 29, ALT 37, Alkaline Phosphatase 105, C-React Prot Ext Range 9.63 H, Total Protein 8.3 H, Albumin 3.8, Globulin 4.5 H, Albumin/Globulin Ratio 0.8 L 04/07/19 16:50: Lactic Acid 1.6 04/07/19 16:50: Magnesium 2.1 04/07/19 17:40: Urine Color Yellow, Urine Clarity Cloudy, Urine pH 5.0, Ur Specific [place] 1.025, Urine Protein 100 H, Urine Glucose (UA) Normal, Urine Ketones 50 H, Urine Occult Blood 250 H, Urine Nitrite Negative, Urine Bilirubin 3 H, Urine Urobilinogen 4 H, Ur Leukocyte Esterase 500 H, Urine RBC 5-10 SEEN, Urine WBC >100 SEEN, Ur Squamous Epith Cells 10-25 SEEN, Ur Transition Epith Cell 0-5 SEEN, Urine Bacteria 2+, Urine Mucus 0 SEEN 04/07/19 17:40: S.aureus Protein A PCR POSITIVE H, MRSA (PCR) Negative Current Medications Acetaminophen (Tylenol) 650 mg PO Q6H PRN PRN PRN Reason: Pain Score 1-3 /Temp>100.7 Al Hydroxide/Mg Hydroxide (Mylanta Ii) 30 ml PO Q6H PRN PRN PRN Reason: Gastric Burning Aripiprazole (Abilify) 15 mg PO DAILY [facility] Duloxetine HCl (Cymbalta) 60 mg PO BID [facility] Ergocalciferol (Vitamin D) 50,000 unit PO ADAN [facility] Ferrous Sulfate (Ferrous Sulfate) 325 mg PO BID@1200,1700 [facility] Gabapentin (Neurontin) 900 mg PO QHS [facility] Gabapentin (Neurontin) 600 mg PO DAILY@0800 [facility] Hydralazine HCl (Apresoline Iv) 10 mg IV Q4H PRN PRN PRN Reason: SBP > 160 Hydroxyzine Pamoate (Vistaril Pamoate Capsule) 50 mg PO QHS [facility] Sodium Chloride () 1,000 mls @ 125 mls/hr IV .Q8H [facility] Last Infusion: 04/07/19 19:48 Dose: 0 mls/hr Documented by: Vancomycin IV Pharmacy to Dose (1 ea/ Sodium Chloride) 500 mls @ 250 mls/hr IV X1 PRN; Protocol PRN Reason: Rx to Dose Piperacillin Sod/Tazobactam (Sod 3.375 gm/ Sodium Chloride) 50 mls @ 12.5 mls/hr IV Q8 [facility] Vancomycin HCl 1,250 mg/ (Sodium Chloride) 275 mls @ 167 mls/hr IV Q12H [facility] Levothyroxine Sodium (Synthroid) 200 mcg PO DAILY@0600 [facility] Liothyronine Sodium (Cytomel) 5 mcg PO BID@0700,1600 [facility] Meloxicam (Mobic) 15 mg PO DAILY [facility] Metoprolol Tartrate (Lopressor (Beta Mark)) 25 mg PO TID [facility] Morphine Sulfate () 1 - 2 mg IV Q4H PRN PRN PRN Reason: Pain Score 4-5/10 Morphine Sulfate () 2 - 4 mg IV Q3H PRN PRN PRN Reason: Pain Score 6-10/10 Ondansetron HCl (Zofran) 4 mg IV Q8H PRN PRN PRN Reason: Nausea Oxycodone HCl (Oxyir) 5 mg PO Q4H PRN PRN PRN Reason: Pain Score 4-5/10 Pantoprazole Sodium (Protonix) 40 mg PO DAILY [facility] Assessment/Plan All Active Problems (Last Reviewed 05/08/19 @ 13:[address] Navin Johnson, DPKassie) Severe sepsis (Acute) UTI (urinary tract infection) (Acute) Osteomyelitis (Acute) Postural orthostatic tachycardia syndrome (Acute) Gennaro's thyroiditis (Acute) I had long discussion regarding the appearance of this toe in my outpatient clinic. there is chronic ulceration with subulxation of 5th toe. xrays are concerning for osteomyelitis. patient will be admitted to hospital. she has already come to terms with amptuation and has freely accepted this plan. I discussed level of amputation. there are xray findings concerning for osteomyelitis of proximal phalanx. to assure complete surgical resection of infection, a partial ray amputation of 5th metatarsal may be necessary. this partial 5th ray amputation may also be required to achieve enough soft-tissue for closure of surgical wound. I will plan to pursue amputation possibly tomorrow pending medical clearance. I informed patient that if there is any drainage, the decision to leave open for a few days be be required. will make that decision intra-op. I do want to obtain pvr to evaluate for any underlying small vessel disease that may make healing difficult. MRI is also beneficial to evaluate for any deep space abscess or proximal extent of osteomyelitis. patient freely accepts amputation as treatment for chronic non healing wound. Inpatient E&M: [id number] Init Hosp L3
[2019-04-07 21:02] VITALS: PULSE 80
[2019-04-07] MEDS: Metoprolol Tartrate 25 MG Tablet PO (21:02)
[2019-04-07] MEDS: DULoxetine Hcl 60 MG Capsule PO (21:02)
[2019-04-07] MEDS: Gabapentin 300 MG Capsule 900 MG PO (21:02)
[2019-04-07] MEDS: hydrOXYzine PAM 25 MG Capsule 50 MG PO (21:02)
[2019-04-08] VITALS (20 sets, daily range): BP systolic 98–127; BP diastolic 56–87; PULSE 58–96; RESP 16–18; TEMP 35.9–36.8; O2SAT 92–100; BMI 39.4
--- NOTE | 2019-04-08 | BON_PTH ---
PATIENT: EMILIA ANG LOC: MS3 U#:[id number] AGE/SX: 58/F ROOM: DE321 RE04/07/[address]: Dr. Navin Johnson DPM : 1960 BED: 1 DIS: 04/11/2019 SPEC #: [id number] RECD: 04/08/19 17:11 STATUS: VANESSA LINNEA #: [id number] ABBY: 04/08/19 00:[address]: Navin Johnson DEPT: SURGICAL PATHOLOGY RECD BY: Jay Fields ENTERED: 04/09/19 07:57 SP TYPE: Bone OTHR DR: MD Dr. Cong Fenton MD Tissues: A - Bone of foot, NOS B - Bone of foot, NOS Procedures: Decalcification bone/plaque Surgery Specimen Level III HEADER OPERATION: Amputation fifth toe PRE-OP DIAGNOSIS: Nonhealing wound right fifth toe TISSUE SUBMITTED: A - Right proximal phalanx, B - Right fifth metatarsal biopsy MICROSCOPIC DIAGNOSIS A. Right proximal phalanx, biopsy: A pieces of bone with reactive changes and focal acute osteomyelitis. Adherent piece of fibroconnective tissue with acute and chronic inflammation and granulation tissue reaction. B. Right fifth metatarsal, biopsy: A piece of bone with reactive changes, negative for acute osteomyelitis. HIRA:wesley 04/13/19 MICROSCOPIC DESCRIPTION Slides are reviewed. GROSS DESCRIPTION A - Received in fixative is one container labeled with the patient's name and designated right proximal phalanx. The specimen consists of a piece of wilson-white bone measuring 0.5 x 0.5 x 0.2 cm. The specimen is totally submitted in one cassette after decalcification. B - Received in fixative is one container labeled with the patient's name and designated right fifth metatarsal biopsy. The specimen consists of an elongated piece of bone measuring 0.5 cm in length and 0.1 cm in diameter. The specimen is totally submitted in one cassette after decalcification. / HIRA:wesley 04/09/19 TC:2 CPT: 99674 x2, 37799 x2
--- NOTE | 2019-04-08 06:00 | EKG12_ITS ---
Test Reason : AM EKG Blood Pressure : / mmHG Vent. Rate : 089 BPM Atrial Rate : 089 BPM P-R Int : 238 ms QRS Dur : 088 ms QT Int : 386 ms P-R-T Axes : 068 084 079 degrees QTc Int : 469 ms Sinus rhythm with 1st degree A-V block Low voltage QRS Borderline ECG When compared with ECG of 18-OCT-2018 11:30, No significant change was found Confirmed by JOHN DE LUNA, CAT ([id number]), supervising editor news reel OLAYINKA REDDY ([id number]) on 04/13/2019 8:56:00 AM Referred By: HÉCTOR Confirmed By:KENNEDI LOPEZ MD
[2019-04-08] MEDS: Levothyroxine 100 MCG Tablet 200 MCG PO (06:33)
[2019-04-08] MEDS: Metoprolol Tartrate 25 MG Tablet PO ×2 (06:33→22:26)
[2019-04-08] MEDS: 0.9% Normal Saline 1,000 ML 125 ML IV ×2 (06:33→16:48)
[2019-04-08 06:36] LABS: Absolute Lymphocyte Count 2.48 X10^3/uL (0.83-4.51); Absolute Neutrophil Count 3.2 X10^3/uL (2.0-7.7); Basophil# 0.06 X10^3/uL; Basophil% 0.9 % (0-1); Eosinophil# 0.09 X10^3/uL; Eosinophils% 1.4 % (0-5); Hematocrit 40.6 % (37-47); Hemoglobin 12.8 g/dL (12.0-15.0); Lymphocyte # 2.48 X10^3/ul (4.0); Lymphocyte % 38.3 % (19-41); Mean Corp Hgb Conc 31.5 g/dL (32-36); Mean Corpuscular Hgb 27.6 pg (27.0-32.0); Mean Corpuscular Volume 87.5 fL (81-99); Mean Platelet Vol. 9.7 fl (6.2-12.0); Monocyte# 0.59 X10^3/uL; Monocyte% 9.1 % (0-10); NRBC Flagged by Analyzer 0 % (0-5); Neutrophil # 3.23 X10^3/uL (2.7-7.7); Platelet Count 268 K/mm3 (150-450); RBC Distribution Width SD 47.6 fl (35.1-43.9); Red Blood Count 4.64 M/mm3 (4.2-5.4); White Blood Count 6.5 K/mm3 (4.4-11.0)
[2019-04-08 07:13] LABS: Anion Gap 7 (5-15); BUN 15 mg/dL (7-18); BUN/Creat Ratio 15.8 RATIO (10-20); Calcium,Total 9.2 mg/dL (8.5-10.1); Chloride 112 mmol/L (98-107); Creatinine, Serum 0.95 mg/dL (0.55-1.02); EST Glomerular Filtration Rate 64 mL/min (>60); Est Glom Filt Rate - Afr Amer 77 mL/min (>60); Estimated Creatinine Clearance 50.43 ml/min; Glucose 110 mg/dL (74-106); Potassium 3.4 mmol/L (3.5-5.1); Sodium Level 142 mmol/L (136-145); Thyroid Stim Hormone (TSH) 2.88 uIU/mL (0.358-3.74)
--- NOTE | 2019-04-08 08:52 | PN_ITS ---
Patient Problems: Active and Suspected Problems (Last Updated 04/07/19 @ 20:[address] Navin Johnson, WENDI) Osteomyelitis (Acute) Reason for Visit: Follow-up nonhealing wound of right foot Subjective: Patient is a 58-year-old lady admitted with a nonhealing wound of right foot median studies obtained on admission demonstrated features suspicious for osteomyelitis involving the fifth proximal phalanx Objective: GENERAL: cooperative HEENT: Atraumatic; EYES; Anicteric, Normal Conjunctiva NECK; supple, normal thyroid, RESPIRATORY: Diminished to auscultation CARDIOVASCULAR: Regular S1 S2, GI: soft, normoactive bowel sounds, : No Renal angle tenderness; EXTREMITIES: Nonhealing wound on the medial aspect of the fifth phalanx involving the right foot MUSCULOSKELETAL: no muscle waisting NEURO: Awake; no lateralizing signs. SKIN: No Rash PSYCH; Flat affect Vitals/I&O's: Vital Signs Temp Pulse Resp BP Pulse Ox 97.7 F L 74 16 118/66 98 04/08/19 06:31 04/08/19 06:33 04/08/19 06:31 04/08/19 06:31 04/08/19 06:31 Oxygen Delivery Method Room Air Weight: 97.8 kg Body Mass Index (BMI) 39.4 Intake and Output for Last 24 Hours 04/06/19 04/07/19 04/08/19 23:59 23:59 23:59 Intake Total 797.5 / 1347.5 2207.50 / 2207.50 Balance 797.5 / 1347.5 2207.50 / 2207.50 Laboratory Results 04/07/19 16:50: WBC 9.1, RBC 5.35, Hgb 15.5 H, Hct 46.4, MCV 86.7, MCH 29.0, MCHC 33.4, RDW Std Deviation 46.2 H, RDW Coeff of Vini 14.6, Plt Count 332, MPV 9.7, Immature Gran % (Auto) 0.400, Neut % (Auto) 54.9, Lymph % (Auto) 34.6, [place] % (Auto) 8.3, Eos % (Auto) 0.9, Baso % (Auto) 0.9, Absolute Neuts (auto) 5.0, Absolute Lymphs (auto) 3.14, Nucleated RBC % 0, ESR 26 04/07/19 16:50: PT 14.0, INR 1.1, APTT 30.6 04/07/19 16:50: Sodium 139, Potassium 3.6, Chloride 107, Carbon Dioxide 23.0, Anion Gap 9, BUN 15, Creatinine 1.09 H, Estim Creat Clear Calc 43.95, Est GFR (MDRD) Af Amer 66, Est GFR (MDRD) Non-Af 54 L, BUN/Creatinine Ratio 13.8, Glucose 93, Calcium 9.3, Total Bilirubin 0.90, AST 29, ALT 37, Alkaline Phosphatase 105, C-React Prot Ext Range 9.63 H, Total Protein 8.3 H, Albumin 3.8, Globulin 4.5 H, Albumin/Globulin Ratio 0.8 L 04/07/19 16:50: Lactic Acid 1.6 04/07/19 16:50: Magnesium 2.1 04/07/19 17:40: Urine Color Yellow, Urine Clarity Cloudy, Urine pH 5.0, Ur Specific [place] 1.025, Urine Protein 100 H, Urine Glucose (UA) Normal, Urine Ketones 50 H, Urine Occult Blood 250 H, Urine Nitrite Negative, Urine Bilirubin 3 H, Urine Urobilinogen 4 H, Ur Leukocyte Esterase 500 H, Urine RBC 5-10 SEEN, Urine WBC >100 SEEN, Ur Squamous Epith Cells 10-25 SEEN, Ur Transition Epith Cell 0-5 SEEN, Urine Bacteria 2+, Urine Mucus 0 SEEN 04/07/19 17:40: S.aureus Protein A PCR POSITIVE H, MRSA (PCR) Negative 04/08/19 06:24: WBC 6.5, RBC 4.64, Hgb 12.8, Hct 40.6, MCV 87.5, MCH 27.6, MCHC 31.5 L D, RDW Std Deviation 47.6 H, RDW Coeff of Vini 15.0 H, Plt Count 268, MPV 9.7, Immature Gran % (Auto) 0.300, Neut % (Auto) 50.0, Lymph % (Auto) 38.3, [place] % (Auto) 9.1, Eos % (Auto) 1.4, Baso % (Auto) 0.9, Absolute Neuts (auto) 3.2, Absolute Lymphs (auto) 2.48, Nucleated RBC % 0 04/08/19 06:24: Sodium 142, Potassium 3.4 L, Chloride 112 H, Carbon Dioxide 23.0, Anion Gap 7, BUN 15, Creatinine 0.95, Estim Creat Clear Calc 50.43, Est GFR (MDRD) Af Amer 77, Est GFR (MDRD) Non-Af 64, BUN/Creatinine Ratio 15.8, Glucose 110 H, Calcium 9.2, TSH 2.88 04/08/19 06:24: Hemoglobin A1c Pending Current Medications Acetaminophen (Tylenol) 650 mg PO Q6H PRN PRN PRN Reason: Pain Score 1-3 /Temp>100.7 Al Hydroxide/Mg Hydroxide (Mylanta Ii) 30 ml PO Q6H PRN PRN PRN Reason: Gastric Burning Aripiprazole (Abilify) 15 mg PO DAILY [facility] Duloxetine HCl (Cymbalta) 60 mg PO BID [facility] Last Admin: 04/07/19 21:02 Dose: 60 mg Documented by: Ergocalciferol (Vitamin D) 50,000 unit PO ADAN [facility] Ferrous Sulfate (Ferrous Sulfate) 325 mg PO BID@1200,1700 [facility] Gabapentin (Neurontin) 900 mg PO QHS [facility] Last Admin: 04/07/19 21:02 Dose: 900 mg Documented by: Gabapentin (Neurontin) 600 mg PO DAILY@0800 [facility] Hydralazine HCl (Apresoline Iv) 10 mg IV Q4H PRN PRN PRN Reason: SBP > 160 Hydroxyzine Pamoate (Vistaril Pamoate Capsule) 50 mg PO QHS [facility] Last Admin: 04/07/19 21:02 Dose: 50 mg Documented by: Sodium Chloride () 1,000 mls @ 125 mls/hr IV .Q8H [facility] Last Admin: 04/08/19 06:33 Dose: 125 mls/hr Documented by: Vancomycin IV Pharmacy to Dose (1 ea/ Sodium Chloride) 500 mls @ 250 mls/hr IV X1 PRN; Protocol PRN Reason: Rx to Dose Piperacillin Sod/Tazobactam (Sod 3.375 gm/ Sodium Chloride) 50 mls @ 12.5 mls/hr IV Q8 [facility] Last Admin: 04/08/19 06:33 Dose: 12.5 mls/hr Documented by: Vancomycin HCl 1,250 mg/ (Sodium Chloride) 275 mls @ 167 mls/hr IV Q12H [facility] Last Infusion: 04/08/19 05:40 Dose: Infused Documented by: Sodium Chloride () 250 mls @ 15 mls/hr IV .[id number] PRN PRN Reason: Saline Flush Last Infusion: 04/08/19 04:02 Dose: 0 mls/hr Documented by: Sodium Chloride () 250 mls @ 15 mls/hr IV .[id number] PRN PRN Reason: Additional IVPB Infusion Levothyroxine Sodium (Synthroid) 200 mcg PO DAILY@0600 [facility] Last Admin: 04/08/19 06:33 Dose: 200 mcg Documented by: Liothyronine Sodium (Cytomel) 5 mcg PO BID@0700,1600 [facility] Last Admin: 04/08/19 06:33 Dose: 5 mcg Documented by: Meloxicam (Mobic) 15 mg PO DAILY [facility] Metoprolol Tartrate (Lopressor (Beta Mark)) 25 mg PO TID [facility] Last Admin: 04/08/19 06:33 Dose: 25 mg Documented by: Morphine Sulfate () 1 - 2 mg IV Q4H PRN PRN PRN Reason: Pain Score 4-5/10 Morphine Sulfate () 2 - 4 mg IV Q3H PRN PRN PRN Reason: Pain Score 6-10/10 Ondansetron HCl (Zofran) 4 mg IV Q8H PRN PRN PRN Reason: Nausea Oxycodone HCl (Oxyir) 5 mg PO Q4H PRN PRN PRN Reason: Pain Score 4-5/10 Pantoprazole Sodium (Protonix) 40 mg PO DAILY [facility] STROKE Vital Signs/Narrative: Vital Signs Temp Pulse Resp BP Pulse Ox 04/08/19 06:33 74 04/08/19 06:31 97.7 F L 74 16 118/66 98 Medical Necessity - Tobacco Use Smoking Status: Former smoker - Patient smoked approximately 3 cigarettes/day from the age of 48 until approximately 6 years ago. Tobacco Use: Non-smoker Assessment/Plan All Active Problems (Last Updated 04/07/19 @ 20:[address] Navin Johnson, DP) Severe sepsis (Acute) UTI (urinary tract infection) (Acute) Osteomyelitis (Acute) Postural orthostatic tachycardia syndrome (Acute) Gennaro's thyroiditis (Acute) Patient is a 58-year-old lady admitted with a nonhealing wound of right foot imaging studies obtained on admission demonstrated features suspicious for osteomyelitis involving the fifth proximal phalanx 1. Osteomyelitis involving the right fifth proximal phalanx in a patient with underlying nonhealing wound involving the right foot ?Patient admitted to orthopedic service started on broad-spectrum antibiotic therapy( vancomycin as well as piperacillin?tazobactam). Cultures sent will recommend obtaining consultation with infectious disease 2. History of Gennaro thyroiditis with subsequent hypothyroidism ?Patient is on levothyroxine did continue 3. PSVT ?Currently asymptomatic symptoms controlled with metoprolol 4. History of postural orthostatic tachycardic syndrome ?On metoprolol 5. Obesity with BMI of 39.4 ?Weight loss advised 6. GERD ?Patient is on PPI 7. DVT prophylaxis ?Would recommend Lovenox if no contraindication Active Medications Acetaminophen (Tylenol) 650 mg PO Q6H PRN PRN PRN Reason: Pain Score 1-3 /Temp>100.7 Al Hydroxide/Mg Hydroxide (Mylanta Ii) 30 ml PO Q6H PRN PRN PRN Reason: Gastric Burning Aripiprazole (Abilify) 15 mg PO DAILY [facility] Duloxetine HCl (Cymbalta) 60 mg PO BID [facility] Last Admin: 04/07/19 21:02 Dose: 60 mg Documented by: Ergocalciferol (Vitamin D) 50,000 unit PO ADAN [facility] Ferrous Sulfate (Ferrous Sulfate) 325 mg PO BID@1200,1700 [facility] Gabapentin (Neurontin) 900 mg PO QHS [facility] Last Admin: 04/07/19 21:02 Dose: 900 mg Documented by: Gabapentin (Neurontin) 600 mg PO DAILY@0800 [facility] Hydralazine HCl (Apresoline Iv) 10 mg IV Q4H PRN PRN PRN Reason: SBP > 160 Hydroxyzine Pamoate (Vistaril Pamoate Capsule) 50 mg PO QHS [facility] Last Admin: 04/07/19 21:02 Dose: 50 mg Documented by: Sodium Chloride () 1,000 mls @ 125 mls/hr IV .Q8H [facility] Last Admin: 04/08/19 06:33 Dose: 125 mls/hr Documented by: Vancomycin IV Pharmacy to Dose (1 ea/ Sodium Chloride) 500 mls @ 250 mls/hr IV X1 PRN; Protocol PRN Reason: Rx to Dose Piperacillin Sod/Tazobactam (Sod 3.375 gm/ Sodium Chloride) 50 mls @ 12.5 mls/hr IV Q8 [facility] Last Admin: 04/08/19 06:33 Dose: 12.5 mls/hr Documented by: Vancomycin HCl 1,250 mg/ (Sodium Chloride) 275 mls @ 167 mls/hr IV Q12H [facility] Last Infusion: 04/08/19 05:40 Dose: Infused Documented by: Sodium Chloride () 250 mls @ 15 mls/hr IV .[id number] PRN PRN Reason: Saline Flush Last Infusion: 04/08/19 04:02 Dose: 0 mls/hr Documented by: Sodium Chloride () 250 mls @ 15 mls/hr IV .[id number] PRN PRN Reason: Additional IVPB Infusion Levothyroxine Sodium (Synthroid) 200 mcg PO DAILY@0600 [facility] Last Admin: 04/08/19 06:33 Dose: 200 mcg Documented by: Liothyronine Sodium (Cytomel) 5 mcg PO BID@0700,1600 [facility] Last Admin: 04/08/19 06:33 Dose: 5 mcg Documented by: Meloxicam (Mobic) 15 mg PO DAILY [facility] Metoprolol Tartrate (Lopressor (Beta Mark)) 25 mg PO TID [facility] Last Admin: 04/08/19 06:33 Dose: 25 mg Documented by: Morphine Sulfate () 1 - 2 mg IV Q4H PRN PRN PRN Reason: Pain Score 4-5/10 Morphine Sulfate () 2 - 4 mg IV Q3H PRN PRN PRN Reason: Pain Score 6-10/10 Ondansetron HCl (Zofran) 4 mg IV Q8H PRN PRN PRN Reason: Nausea Oxycodone HCl (Oxyir) 5 mg PO Q4H PRN PRN PRN Reason: Pain Score 4-5/10 Pantoprazole Sodium (Protonix) 40 mg PO DAILY [facility] Clinical Impression(s) from Imaging Studies Foot X-Ray 04/07/19 16:50 IMPRESSION: Suspect osteomyelitis of the fifth proximal phalanx. Electronically Signed: Osmin Dumont MD at 17:05 EST Tel , Service support , Code Visit Inpatient E&M: [id number] Subs Hosp L2
--- NOTE | 2019-04-08 09:15 | MRI_ITS ---
STUDY: MRI RIGHT FOREFOOT WITH AND WITHOUT CONTRAST REASON FOR EXAM: Female, 58 years old. rt foot osteo, non healing wound right 5th toe TECHNIQUE: Standardized fat and water weighted pulse sequences were obtained in all 3 orthogonal planes, post contrast administration. IV DOTAREM 19ML was administered for the contrast portion of the examination. COMPARISON: X-ray 04/07/2019 FINDINGS: There is degenerative arthrosis of the metatarsophalangeal joint of the hallux with a hallux valgus deformity. Normal tibial and fibular sesamoids, with normal sesamoids-first metatarsal articulations. Normal interphalangeal joint of the hallux. Normal proximal and distal phalanges of the great toe. Normal medial and lateral heads of the flexor hallucis brevis tendons. Normal flexor and extensor hallucis longus tendons. Normal second through fifth metatarsophalangeal (MTP) joints. Normal interphalangeal joints of the second through fifth toes. Skin thickening, subcutaneous edema and enhancement of the fifth digit consistent with cellulitis. No loculated fluid collection to suggest abscess. Bony destruction and marrow edema of the fifth proximal phalanx consistent with osteomyelitis. Normal flexor and extensor tendons of the second through fifth toes. Normal first through fourth intermetatarsal spaces. Normal visualized metatarsi. There is diffuse atrophy of the intrinsic muscles of the forefoot consisten twith a peripheral neuropathy. There is no demonstrated soft tissue abnormality. MRI/Lower Ext No Joint W/WO Cont IMPRESSION: Cellulitis of the fifth digit without abscess but with osteomyelitis of the fifth proximal phalanx per Electronically Signed: Osmin Dumont MD at 11:17 EST Tel , Service support ,
[2019-04-08 10:17] LABS: Hemoglobin A1c 5.5 % (4.2-6.3)
[2019-04-08] MEDS: 0.9% Saline Lock 10 ML Syringe IV (10:35)
[2019-04-08] MEDS: Ferrous Sulfate 325 MG Tablet PO ×2 (10:36→17:31)
[2019-04-08] MEDS: DULoxetine Hcl 60 MG Capsule PO ×2 (10:36→22:27)
[2019-04-08] MEDS: Gabapentin 300 MG Capsule 600 MG PO (10:36)
[2019-04-08] MEDS: Pantoprazole Sodium 40 MG Tablet PO (10:36)
[2019-04-08] MEDS: ARIPiprazole 5 MG Tablet 15 MG PO (10:36)
--- NOTE | 2019-04-08 13:05 | CASEMGMT ---
RN CM PROFESSOR OF PSYCHIATRY CM to room to meet with patient for initial transition planning/care coordination assessment. DARON KO introduced self and role at [facility]. Pt voices understanding and consents to assessment at this time. Pt resting in bed in no distress at this time. Pt is A/O at this time and answers all questions appropriately. Care providers, pharmacy, and demographics verified/updated at this time. PCP: Dr Cong Dumont Specialists: Dr Deanne Norman--insurance attorney @ [facility] Condon, Dr Johnson--freelance writer, Dr Herrera--caster investment casting [facility] Pierce, CHER Rivera--[facility] Tod/GI, Dr Martínez @ [facility]. States will be seeing a resident @ [facility] main--psychiatry on May 26. Preferred Pharmacy: [facility] Insurance: [facility] Prescription Benefit: Yes Living Will/HPOA: States does not have LW or HCPOA . Interested in more information and would like to talk with to complete paperwork. YING Diaz, made aware. Also given Shank Skinner rac card if wants to meet with as an out-pt. LNOK: Brother, Reshma Wilkins. Mother, Julianna Torres Living Arrangements: Lives alone. Independent. Transportation: Pt states drives self and states no transportation concerns at this time. States her friend, Clarisa Alba, will be taking her home @ D/C. DME: States has the following DME: [employer]. Has a walker, but does not use. States would like a shower chair. Given list of local DME companies. She states she has no preference. CM, Marianne Shane made aware. HHC/SNF: No history of either. Pt wishes to return home and states has no concerns with going home at time of discharge. CM to follow for any further discharge planning/needs. Pt voices no further concerns/needs at this time. Advised pt to ask for CM if any further questions/concerns/needs arise. Voices understanding. PLAN: Home. Pt would like a shower chair. CM to follow for any other DME needed @ d/c. CM to follow for possible need of IV antibiotics/wound care. YING consult for JULISSA NGUYEN RN, CM
--- NOTE | 2019-04-08 13:25 | RAD_ITS ---
STUDY: X-RAY RIGHT FOOT, FIFTH TOE REASON FOR EXAM: Female, 58 years old. 5TH DIGIT AMPUTATION TECHNIQUE: 2 view(s) of the toe were obtained. COMPARISON: Previous study of 04/07/2019 FINDINGS: Normal visualized metatarsus. There are status post amputation changes of the fifth toe. The soft tissue structures are unremarkable. RAD/Toe(s) Min 2 Views IMPRESSION: Status post fifth toe amputation. Electronically Signed: Tylor Malagon MD at 17:04 EST , Service support ,
--- NOTE | 2019-04-08 14:35 | NURSING ---
Pt off unit for surgery.
--- NOTE | 2019-04-08 16:06 | PN_ITS ---
Patient Problems: Active and Suspected Problems (Last Updated 04/07/19 @ 20:[address] Navin Johnson, [facility]) Osteomyelitis (Acute) Subjective: patient is seen at pre-op holding area. no acute distress. minimal pain. denies n/v/f/c. anticipating surgery for amputation of right 5th toe. Objective: patient is alert and orientated x 3. vascular: DP and PT pulses palpable to right foot. cft is less than 5 seconds. skin temperature is warm to warm. neuro: protective sensation is intact to right foot. derm: there is full thickness wound to right 5th toe proximal phalanx. mild redness. mild serous drainage. mri reviewed. there is marrow edema and destructive changes of proximal phalanx. no changes to 5th metatarsal. - Physical Exam Vitals/I&O's: Vital Signs Temp Pulse Resp BP Pulse Ox 97.7 F L 71 16 127/75 H 98 04/08/19 13:05 04/08/19 13:05 04/08/19 13:05 04/08/19 13:05 04/08/19 13:05 Oxygen Delivery Method Room Air Weight: 97.8 kg Body Mass Index (BMI) 39.4 Intake and Output for Last 24 Hours 04/06/19 04/07/19 04/08/19 23:59 23:59 23:59 Intake Total 797.5 / 1347.5 2496.75 / 2496.75 Balance 797.5 / 1347.5 2496.75 / 2496.75 Microbiology Past 72 Hours 04/07/19 17:40 Wound - Toe Gram Stain - Final 04/07/19 17:40 Wound - Toe Wound Culture - Preliminary Streptococcus group B 04/07/19 17:40 Urine Catheter - Catheter Urine Culture - Preliminary Presumptive E. coli Laboratory Results 04/07/19 16:50: WBC 9.1, RBC 5.35, Hgb 15.5 H, Hct 46.4, MCV 86.7, MCH 29.0, MCHC 33.4, RDW Std Deviation 46.2 H, RDW Coeff of Vini 14.6, Plt Count 332, MPV 9.7, Immature Gran % (Auto) 0.400, Neut % (Auto) 54.9, Lymph % (Auto) 34.6, Franklin % (Auto) 8.3, Eos % (Auto) 0.9, Baso % (Auto) 0.9, Absolute Neuts (auto) 5.0, Absolute Lymphs (auto) 3.14, Nucleated RBC % 0, ESR 26 04/07/19 16:50: PT 14.0, INR 1.1, APTT 30.6 04/07/19 16:50: Sodium 139, Potassium 3.6, Chloride 107, Carbon Dioxide 23.0, Anion Gap 9, BUN 15, Creatinine 1.09 H, Estim Creat Clear Calc 43.95, Est GFR (MDRD) Af Amer 66, Est GFR (MDRD) Non-Af 54 L, BUN/Creatinine Ratio 13.8, Glucose 93, Calcium 9.3, Total Bilirubin 0.90, AST 29, ALT 37, Alkaline Phosphatase 105, C-React Prot Ext Range 9.63 H, Total Protein 8.3 H, Albumin 3.8, Globulin 4.5 H, Albumin/Globulin Ratio 0.8 L 04/07/19 16:50: Lactic Acid 1.6 04/07/19 16:50: Magnesium 2.1 04/07/19 17:40: Urine Color Yellow, Urine Clarity Cloudy, Urine pH 5.0, Ur Specific [place] 1.025, Urine Protein 100 H, Urine Glucose (UA) Normal, Urine Ketones 50 H, Urine Occult Blood 250 H, Urine Nitrite Negative, Urine Bilirubin 3 H, Urine Urobilinogen 4 H, Ur Leukocyte Esterase 500 H, Urine RBC 5-10 SEEN, Urine WBC >100 SEEN, Ur Squamous Epith Cells 10-25 SEEN, Ur Transition Epith Cell 0-5 SEEN, Urine Bacteria 2+, Urine Mucus 0 SEEN 04/07/19 17:40: S.aureus Protein A PCR POSITIVE H, MRSA (PCR) Negative 04/08/19 06:24: WBC 6.5, RBC 4.64, Hgb 12.8, Hct 40.6, MCV 87.5, MCH 27.6, MCHC 31.5 L D, RDW Std Deviation 47.6 H, RDW Coeff of Vini 15.0 H, Plt Count 268, MPV 9.7, Immature Gran % (Auto) 0.300, Neut % (Auto) 50.0, Lymph % (Auto) 38.3, Franklin % (Auto) 9.1, Eos % (Auto) 1.4, Baso % (Auto) 0.9, Absolute Neuts (auto) 3.2, A bsolute Lymphs (auto) 2.48, Nucleated RBC % 0 04/08/19 06:24: Sodium 142, Potassium 3.4 L, Chloride 112 H, Carbon Dioxide 23. 0, Anion Gap 7, BUN 15, Creatinine 0.95, Estim Creat Clear Calc 50.43, Est GFR (MDRD) Af Amer 77, Est GFR (MDRD) Non-Af 64, BUN/Creatinine Ratio 15.8, Glucose 110 H, Calcium 9.2, TSH 2.88 04/08/19 06:24: Hemoglobin A1c 5.5 Current Medications Acetaminophen (Tylenol) 650 mg PO Q6H PRN PRN PRN Reason: Pain Score 1-3 /Temp>100.7 Al Hydroxide/Mg Hydroxide (Mylanta Ii) 30 ml PO Q6H PRN PRN PRN Reason: Gastric Burning Aripiprazole (Abilify) 15 mg PO DAILY [facility] Last Admin: 04/08/19 10:36 Dose: 15 mg Documented by: Duloxetine HCl (Cymbalta) 60 mg PO BID [facility] Last Admin: 04/08/19 10:36 Dose: 60 mg Documented by: Ergocalciferol (Vitamin D) 50,000 unit PO [facility] Ferrous Sulfate (Ferrous Sulfate) 325 mg PO BID@1200,1700 [facility] Last Admin: 04/08/19 10:36 Dose: 325 mg Documented by: Gabapentin (Neurontin) 900 mg PO QHS [facility] Last Admin: 04/07/19 21:02 Dose: 900 mg Documented by: Gabapentin (Neurontin) 600 mg PO DAILY@0800 [facility] Last Admin: 04/08/19 10:36 Dose: 600 mg Documented by: Hydralazine HCl (Apresoline Iv) 10 mg IV Q4H PRN PRN PRN Reason: SBP > 160 Hydroxyzine Pamoate (Vistaril Pamoate Capsule) 50 mg PO QHS [facility] Last Admin: 04/07/19 21:02 Dose: 50 mg Documented by: Sodium Chloride () 1,000 mls @ 125 mls/hr IV .Q8H [facility] Last Admin: 04/08/19 06:33 Dose: 125 mls/hr Documented by: Vancomycin IV Pharmacy to Dose (1 ea/ Sodium Chloride) 500 mls @ 250 mls/hr IV X1 PRN; Protocol PRN Reason: Rx to Dose Piperacillin Sod/Tazobactam (Sod 3.375 gm/ Sodium Chloride) 50 mls @ 12.5 mls/ hr IV Q8 [facility] Last Infusion: 04/08/19 10:33 Dose: Infused Documented by: Vancomycin HCl 1,250 mg/ (Sodium Chloride) 275 mls @ 167 mls/hr IV Q12H [facility] Last Infusion: 04/08/19 05:40 Dose: Infused Documented by: Sodium Chloride () 250 mls @ 15 mls/hr IV .[id number] PRN PRN Reason: Saline Flush Last Infusion: 04/08/19 13:10 Dose: 0 mls/hr Documented by: Sodium Chloride () 250 mls @ 15 mls/hr IV .[id number] PRN PRN Reason: Additional IVPB Infusion Levothyroxine Sodium (Synthroid) 200 mcg PO DAILY@0600 [facility] Last Admin: 04/08/19 06:33 Dose: 200 mcg Documented by: Liothyronine Sodium (Cytomel) 5 mcg PO BID@0700,1600 [facility] Last Admin: 04/08/19 06:33 Dose: 5 mcg Documented by: Meloxicam (Mobic) 15 mg PO DAILY [facility] Last Admin: 04/08/19 10:36 Dose: Not Given Documented by: Metoprolol Tartrate (Lopressor (Beta Mark)) 25 mg PO TID [facility] Last Admin: 04/08/19 06:33 Dose: 25 mg Documented by: Morphine Sulfate () 1 - 2 mg IV Q4H PRN PRN PRN Reason: Pain Score 4-5/10 Morphine Sulfate () 2 - 4 mg IV Q3H PRN PRN PRN Reason: Pain Score 6-10/10 Ondansetron HCl (Zofran) 4 mg IV Q8H PRN PRN PRN Reason: Nausea Oxycodone HCl (Oxyir) 5 mg PO Q4H PRN PRN PRN Reason: Pain Score 4-5/10 Pantoprazole Sodium (Protonix) 40 mg PO DAILY [facility] Last Admin: 04/08/19 10:36 Dose: 40 mg Documented by: Sodium Chloride () 10 - 40 ml IV UD PRN PRN Reason: SALINE FLUSH Last Admin: 02/26/20 10:35 Dose: 10 ml Documented by: Medical Necessity - Tobacco Use Smoking Status: Former smoker - Patient smoked approximately 3 cigarettes/day from the age of 48 until approximately 6 years ago. Tobacco Use: Non-smoker Assessment/Plan All Active Problems (Last Updated 04/07/19 @ 20:[address] Navin Johnson, [facility]) Severe sepsis (Acute) UTI (urinary tract infection) (Acute) Osteomyelitis (Acute) Postural orthostatic tachycardia syndrome (Acute) Gennaro's thyroiditis (Acute) Patient was examined and informed of current findings. we are planning for 5th toe amputation with possible partial 5th ray amputation. I will base 5th ray amputation on the apperance of 5th metatarsal and whether or not I will have enough skin for closure. certainly a partial 5th ray amputation does risk development of transfer lesions and therefore, if the 5th metatarsal is healthy intra-op and mRI does not show any marrow changes of 5th metatarsal head, I may just perform biopsy but patient does provide consent for partial 5th ray resection if needed. patient did have pus over weekend and therefore, if there is any drainage, I may leave open for a few days and plan for closure at a later time. patient understands risk of procedure not limited to infection, pain, swelling, bleeding, slow wound healing, hematoma, need for more proximal amputation. patient consents to procedure. Code Visit Inpatient E&M: 46698 [facility] Hosp L3
--- NOTE | 2019-04-08 16:20 | RAD_ITS ---
STUDY: X-RAY - RIGHT FOOT CLINICAL: Female, 58 years old. RIGHT POST OP 5TH TOE AMPUTATION TECHNIQUE: 3 view(s) of the foot. COMPARISON: 04/07/2019 FINDINGS: Normal talus, calcaneus, and tarsal bones. Normal visualized subtalar, talonavicular, calcaneocuboid, tarsal and tarsometatarsal articulations. Normal metatarsi. Normal metatarsophalangeal joint of the great toe. Normal tibial and fibular sesamoid bones. Normal interphalangeal joint of the great toe. Normal phalanges of the great toe. Normal second through fifth metatarsophalangeal joints. Interval amputation of the fifth digit. The soft tissue structures are unremarkable. RAD/Foot min 3 Views IMPRESSION: Interval amputation of the fifth digit. Electronically Signed: Osmin Dumont MD at 16:51 EST Tel , Service support ,
--- NOTE | 2019-04-08 16:51 | CASEMGMT ---
Social Work Note SW received referral for advanced directives. SW unable to meet with pt today. SW will follow up with pt tomorrow as time allows. Marianne Galeano SALES OPERATIONS COORDINATOR, MIDDLE SCHOOL GUIDANCE COUNSELOR
[2019-04-08] MEDS: Morphine 2 MG/ML Syringe IV (20:21)
--- NOTE | 2019-04-08 20:27 | OP.PCM_ITS ---
Report of Operation Date of Procedure: 04/08/19 Pre-Operative Diagnosis: osteomyelitis of right 5th toe Post-Operative Diagnosis: osteomyelitis of right 5th toe Surgery/Procedure Performed:: right 5th toe amputation. Open biopsy of right 5th metatarsal Description of Surgical Findings:: nonhealthy bony of right 5th toe proximal phalanx healthy appearing 5th metatarsal. very minimal serous drainage of right 5th toe Type of Anesthesia:: Local MAC Specimen's removed: right 5th toe proximal phalanx: pathology and micro. right 5th metatarsal bone biopsy Drains: plain packing Estimated Blood Loss (mL): 5 ml Description of Procedure: Patient is a 58 year old female who has chronic ulceration of right 5th toe. s he states the wound was the result of possible fungal infection of right 4th interspace. patient has had the ulceration for over 4 months and the lesion has not progressed. she saw me a few weeks ago and I suggested hospitalization but she had other issues at home that she could not present to hospital. She was placed on antibiotic. She presented to my office yesterday stating that her right 5th toe has been draining and there is pain and redness. She was admitted to the hospital and is now interested in toe amputation. Patient presented to ED yesterday. XRays show erosive changes of 5th toe proximal phalanx. MRI was performed that confirms osteomyelitis of right 5th toe proximal phalanx. I discussed amputation of right 5th toe. I discussed options not limited to right 5th toe amputation vs partial 5th ray amputation. I informed patient that partial 5th ray amputation may be necessary if there is not enough adequate skin for closure. I discussed possible staged procedure w ith delayed closure in coming days. All risks were discussed with patient not limited to infection, pain, swelling, bleeding, slow wound healing, wound dehiscence, need for more proximal amputation, transfer lesions if partial 5th ray resection was performed, cardiac arrest, dvt, . patient consents to procedure. Patient was transferred to operating room and placed on operating room table in supine position. she was placed under monitored anesthesia care. the right lower extremity was prepped and draped in usual aseptic technique. a tourniquet was applied but only used at the end of procedure for approximately 2 minutes to assist in hemostasis. Attention was directed to right 5th toe. there was ulceration to right 5th toe medial aspect. A fish mouth incision along the proximal phalanx was made. The lateral fishmouth incision was carried more distally to allow for usage of lateral skin for closure. there was small amounts of serous drainage but no purulence. The 5th toe was disarticulated at mtpj. the proximal phalanx was sent for pathology and micro. I then evaluated the 5th metatarsal head. it appeared healthy and viable. After evaluating the 5th metatarsal, I evaluated the remaining skin. It appears that patient should have adequate skin to allow for closure and possible rotational flap thereby eliminating need for partial 5th ray resection. I feel in absence of mri findings of osteomyelitis pertaining to 5th metatarsal, the healthy appearance of 5th metatarsal and the possible ability to close the wound without need for proximal 5th metatarsal re section, I feel that if this can be accomplished, it will lower risks of transfer lesion. I therefore made decision to avoid 5th metatarsal resection today in favor of bone biopsy of 5th metatarsal. a jamsheedy needle was used to obtain biopsy of 5th metatarsal. I then irrigated the right foot with 3000 cc of normal saline. After irrigation, the proximal and central incision was approximated with 3-0 nylon. the distal incision was packed open. I did use nona to achieve hemostasis. The right foot was then dressed with betadine soaked adaptic, 4x4 guaze, stefani and any. will continue with antibiotic. Will consult ID. Will plan for possible closure later in week. if condition requires more proximal resection of 5th metatarsal, will make that decision as needed. - Admit VTE Documentation VTE Present on Admission: Yes VTE Mechan Device Prophylaxis: SCD's
[2019-04-08] MEDS: hydrOXYzine PAM 25 MG Capsule 50 MG PO (22:26)
[2019-04-08] MEDS: oxyCODONE 5 MG Tablet PO (22:27)
[2019-04-08] MEDS: Gabapentin 300 MG Capsule 900 MG PO (22:27)
[2019-04-09] VITALS (9 sets, daily range): BP systolic 88–130; BP diastolic 53–87; PULSE 54–80; RESP 16–18; TEMP 36.4–37.2; O2SAT 95–100
[2019-04-09] MEDS: 0.9% Normal Saline 1,000 ML 125 ML IV ×3 (00:58→19:26)
[2019-04-09] MEDS: oxyCODONE 5 MG Tablet PO ×4 (02:55→20:36)
[2019-04-09 03:55] LABS: Vancomycin, Trough Level 18.9 ug/mL (5.0-15.0)
--- NOTE | 2019-04-09 04:10 | PCM.RX.CS ---
Consult Pharmacy has been consulted to manage selected antiobiotic: Vancomycin Type of Consult: Follow-up Suspected Infection: Skin/Soft tissue, Osteomyelitis Labs: Sodium 142 mmol/L (136-145) 04/08/19 06:24 Potassium 3.4 mmol/L (3.5-5.1) L 04/08/19 06:24 Chloride 112 mmol/L (98-107) H 04/08/19 06:24 Carbon Dioxide 23.0 mmol/L (21.0-32.0) 04/08/19 06:24 Anion Gap 7 (5-15) 04/08/19 06:24 BUN 15 mg/dL (7-18) 04/08/19 06:24 Creatinine 0.95 mg/dL (0.55-1.02) 04/08/19 06:24 Est GFR (MDRD) Af Amer 77 mL/min (>60) 04/08/19 06:24 Est GFR (MDRD) Non-Af 64 mL/min (>60) 04/08/19 06:24 BUN/Creatinine Ratio 15.8 RATIO (10-20) 04/08/19 06:24 Glucose 110 mg/dL (74-106) H 04/08/19 06:24 Vancomycin Trough 18.9 ug/mL (5.0-15.0) H 04/09/19 03:18 Microbiology: Microbiology 04/07/19 17:40 Wound - Toe Gram Stain - Final 04/07/19 17:40 Wound - Toe Wound Culture - Preliminary Streptococcus group B 04/07/19 17:40 Urine Catheter - Catheter Urine Culture - Preliminary Presumptive E. coli Goal Trough: 15-20 mcg/mL Pharmacy Plan for Drug Dosing: Pharmacy Service will continue to monitor and adjust dosing as required. TROUGH 18.9 NO CHANGES REDRAW TROUGH 04/11 @ 0330 Follow-Up Labs: Trough Vancomycin Labs to be done on [date and time ordered]: 04/11 @ 329
[2019-04-09] MEDS: Metoprolol Tartrate 25 MG Tablet PO ×3 (06:08→20:38)
[2019-04-09] MEDS: Levothyroxine 100 MCG Tablet 200 MCG PO (06:08)
[2019-04-09] MEDS: Morphine 2 MG/ML Syringe IV (06:14)
[2019-04-09] MEDS: 0.9% Saline Lock 10 ML Syringe IV (06:14)
--- NOTE | 2019-04-09 07:27 | PN_ITS ---
Patient Problems: Active and Suspected Problems (Last Updated 04/07/19 @ 20:[address] Navin Johnson, WENDI) Osteomyelitis (Acute) Reason for Visit: Follow-up right foot infection Subjective: Patient underwent right fifth toe amputation on 04/08/2019 with cultures sent. Objective: GENERAL: cooperative HEENT: Atraumatic; EYES; Anicteric, Normal Conjunctiva NECK; supple, normal thyroid, RESPIRATORY: Diminished to auscultation CARDIOVASCULAR: Regular S1 S2, GI: soft, normoactive bowel sounds, : No Renal angle tenderness; EXTREMITIES: Right foot in surgical dressing MUSCULOSKELETAL: no muscle waisting NEURO: Awake; no lateralizing signs. SKIN: No Rash PSYCH; Flat affect Vitals/I&O's: Vital Signs Temp Pulse Resp BP Pulse Ox 97.9 F 74 16 116/55 L 97 04/09/19 06:04 04/09/19 06:08 04/09/19 06:04 04/09/19 06:04 04/09/19 06:04 Oxygen Delivery Method Room Air Weight: 97.8 kg Body Mass Index (BMI) 39.4 Intake and Output for Last 24 Hours 04/07/19 04/08/19 04/09/19 23:59 23:59 23:59 Intake Total 797.5 / 1347.5 3915.50 / 4315.50 2224.99 / 2224.99 Balance 797.5 / 1347.5 3915.50 / 4315.50 2224.99 / 2224.99 Microbiology Past 72 Hours 04/07/19 17:40 Wound - Toe Gram Stain - Final 04/07/19 17:40 Wound - Toe Wound Culture - Preliminary Streptococcus group B 04/07/19 17:40 Urine Catheter - Catheter Urine Culture - Preliminary Presumptive E. coli Laboratory Results 04/08/19 06:24: Hemoglobin A1c 5.5 04/09/19 03:18: Vancomycin Trough 18.9 H Current Medications Acetaminophen (Tylenol) 650 mg PO Q6H PRN PRN PRN Reason: Pain Score 1-3 /Temp>100.7 Al Hydroxide/Mg Hydroxide (Mylanta Ii) 30 ml PO Q6H PRN PRN PRN Reason: Gastric Burning Aripiprazole (Abilify) 15 mg PO DAILY [facility] Last Admin: 04/08/19 10:36 Dose: 15 mg Documented by: Duloxetine HCl (Cymbalta) 60 mg PO BID [facility] Last Admin: 04/08/19 22:27 Dose: 60 mg Documented by: Ergocalciferol (Vitamin D) 50,000 unit PO [facility] Ferrous Sulfate (Ferrous Sulfate) 325 mg PO BID@1200,1700 [facility] Last Admin: 04/08/19 17:31 Dose: 325 mg Documented by: Gabapentin (Neurontin) 900 mg PO QHS [facility] Last Admin: 04/08/19 22:27 Dose: 900 mg Documented by: Gabapentin (Neurontin) 600 mg PO DAILY@0800 [facility] Last Admin: 04/08/19 10:36 Dose: 600 mg Documented by: Hydralazine HCl (Apresoline Iv) 10 mg IV Q4H PRN PRN PRN Reason: SBP > 160 Hydroxyzine Pamoate (Vistaril Pamoate Capsule) 50 mg PO QHS [facility] Last Admin: 04/08/19 22:26 Dose: 50 mg Documented by: Sodium Chloride () 1,000 mls @ 125 mls/hr IV .Q8H [facility] Last Infusion: 04/09/19 06:10 Dose: 125 mls/hr Documented by: Vancomycin IV Pharmacy to Dose (1 ea/ Sodium Chloride) 500 mls @ 250 mls/hr IV X1 PRN; Protocol PRN Reason: Rx to Dose Piperacillin Sod/Tazobactam (Sod 3.375 gm/ Sodium Chloride) 50 mls @ 12.5 mls/hr IV Q8 [facility] Last Admin: 04/09/19 06:08 Dose: 12.5 mls/hr Documented by: Vancomycin HCl 1,250 mg/ (Sodium Chloride) 275 mls @ 167 mls/hr IV Q12H [facility] Last Infusion: 04/09/19 06:10 Dose: Infused Documented by: Sodium Chloride () 250 mls @ 15 mls/hr IV .[id number] PRN PRN Reason: Saline Flush Last Infusion: 04/08/19 13:10 Dose: 0 mls/hr Documented by: Sodium Chloride () 250 mls @ 15 mls/hr IV .[id number] PRN PRN Reason: Additional IVPB Infusion Levothyroxine Sodium (Synthroid) 200 mcg PO DAILY@0600 [facility] Last Admin: 04/09/19 06:08 Dose: 200 mcg Documented by: Liothyronine Sodium (Cytomel) 5 mcg PO BID@0700,1600 [facility] Last Admin: 04/09/19 06:08 Dose: 5 mcg Documented by: Meloxicam (Mobic) 15 mg PO DAILY [facility] Last Admin: 04/08/19 10:36 Dose: Not Given Documented by: Metoprolol Tartrate (Lopressor (Beta Mark)) 25 mg PO TID [facility] Last Admin: 04/09/19 06:08 Dose: 25 mg Documented by: Morphine Sulfate () 1 - 2 mg IV Q4H PRN PRN PRN Reason: Pain Score 4-5/10 Last Admin: 04/08/19 20:21 Dose: 2 mg Documented by: Morphine Sulfate () 2 - 4 mg IV Q3H PRN PRN PRN Reason: Pain Score 6-10/10 Last Admin: 04/09/19 06:14 Dose: 2 mg Documented by: Ondansetron HCl (Zofran) 4 mg IV Q8H PRN PRN PRN Reason: Nausea Oxycodone HCl (Oxyir) 5 mg PO Q4H PRN PRN PRN Reason: Pain Score 4-5/10 Last Admin: 04/09/19 02:55 Dose: 5 mg Documented by: Pantoprazole Sodium (Protonix) 40 mg PO DAILY [facility] Last Admin: 04/08/19 10:36 Dose: 40 mg Documented by: Sodium Chloride () 10 - 40 ml IV UD PRN PRN Reason: SALINE FLUSH Last Admin: 04/09/19 06:14 Dose: 10 ml Documented by: STROKE Vital Signs/Narrative: Vital Signs Temp Pulse Resp BP Pulse Ox 04/09/19 06:08 74 04/09/19 06:04 97.9 F 74 16 116/55 L 97 04/09/19 04:22 99.0 F 63 16 88/54 L 95 Medical Necessity - Tobacco Use Smoking Status: Former smoker - Patient smoked approximately 3 cigarettes/day from the age of 48 until approximately 6 years ago. Tobacco Use: Non-smoker Assessment/Plan All Active Problems (Last Updated 04/07/19 @ 20:[address] Navin Johnson, DP) Severe sepsis (Acute) UTI (urinary tract infection) (Acute) Osteomyelitis (Acute) Postural orthostatic tachycardia syndrome (Acute) Gennaro's thyroiditis (Acute) Patient is a 58-year-old lady admitted with a nonhealing wound of right foot imaging studies obtained on admission demonstrated features suspicious for osteomyelitis involving the fifth proximal phalanx 1. Osteomyelitis involving the right fifth proximal phalanx in a patient with underlying nonhealing wound involving the right foot ?Patient admitted to orthopedic service started on broad-spectrum antibiotic therapy( vancomycin as well as piperacillin?tazobactam). Cultures sent will recommend obtaining consultation with infectious disease -04/09/2019; Patient underwent right fifth toe amputation on 04/08/2019 with cultures sent. Wound cultures so far positive for Streptococcus group B.consult was also placed to infectious disease. Plan is for patient to undergo wound closure on 04/10/2019. 2. History of Gennaro thyroiditis with subsequent hypothyroidism ?Patient is on levothyroxine did continue 3. PSVT ?Currently asymptomatic symptoms controlled with metoprolol 4. History of postural orthostatic tachycardic syndrome ?On metoprolol 5. Obesity with BMI of 39.4 ?Weight loss advised 6. GERD ?Patient is on PPI 7. DVT prophylaxis ?Would recommend Lovenox if no contraindication Microbiology 04/07/19 17:40 Wound - Toe Gram Stain - Final 04/07/19 17:40 Wound - Toe Wound Culture - Preliminary Streptococcus group B 04/07/19 17:40 Urine Catheter - Catheter Urine Culture - Preliminary Presumptive E. coli Code Visit Inpatient E&M: 44467 Subs Hosp L2
--- NOTE | 2019-04-09 07:37 | NURSING ---
wound photo: right foot
--- NOTE | 2019-04-09 07:45 | PN.SURG_ITS ---
Patient Problems: Active and Suspected Problems (Last Updated 04/07/19 @ 20:[address] Navin Johnson, DPKassie) Osteomyelitis (Acute) Subjective: patient is seen at bedside this morning. pain well controlled. denies n/v/f/c. no complaints. Objective: Patient is alert and orientated x 3. patient does not appear in any distress right foot with distal incision packed open. there is no visible bleeding or purulent drainage. there is no erythema to right foot. no calf pain to right lower extremity. xrays of right foot show stable post-op amputation of right 5th toe. - Physical Exam Vitals/I&O's: Vital Signs Temp Pulse Resp BP Pulse Ox 97.9 F 74 16 116/55 L 97 04/09/19 06:04 04/09/19 06:08 04/09/19 06:04 04/09/19 06:04 04/09/19 06:04 Oxygen Delivery Method Room Air Weight: 97.8 kg Body Mass Index (BMI) 39.4 Intake and Output for Last 24 Hours 04/07/19 04/08/19 04/09/19 23:59 23:59 23:59 Intake Total 797.5 / 1347.5 3915.50 / 4315.50 2224.99 / 2224.99 Balance 797.5 / 1347.5 3915.50 / 4315.50 2224.99 / 2224.99 Microbiology Past 72 Hours 04/07/19 17:40 Wound - Toe Gram Stain - Final 04/07/19 17:40 Wound - Toe Wound Culture - Preliminary Streptococcus group B 04/07/19 17:40 Urine Catheter - Catheter Urine Culture - Preliminary Presumptive E. coli Laboratory Results 04/08/19 06:24: Hemoglobin A1c 5.5 04/09/19 03:18: Vancomycin Trough 18.9 H Current Medications Acetaminophen (Tylenol) 650 mg PO Q6H PRN PRN PRN Reason: Pain Score 1-3 /Temp>100.7 Al Hydroxide/Mg Hydroxide (Mylanta Ii) 30 ml PO Q6H PRN PRN PRN Reason: Gastric Burning Aripiprazole (Abilify) 15 mg PO DAILY [facility] Last Admin: 04/08/19 10:36 Dose: 15 mg Documented by: Duloxetine HCl (Cymbalta) 60 mg PO BID [facility] Last Admin: 04/08/19 22:27 Dose: 60 mg Documented by: Ergocalciferol (Vitamin D) 50,000 unit PO ADAN [facility] Ferrous Sulfate (Ferrous Sulfate) 325 mg PO BID@1200,1700 [facility] Last Admin: 04/08/19 17:31 Dose: 325 mg Documented by: Gabapentin (Neurontin) 900 mg PO QHS [facility] Last Admin: 04/08/19 22:27 Dose: 900 mg Documented by: Gabapentin (Neurontin) 600 mg PO DAILY@0800 [facility] Last Admin: 04/08/19 10:36 Dose: 600 mg Documented by: Hydralazine HCl (Apresoline Iv) 10 mg IV Q4H PRN PRN PRN Reason: SBP > 160 Hydroxyzine Pamoate (Vistaril Pamoate Capsule) 50 mg PO QHS [facility] Last Admin: 04/08/19 22:26 Dose: 50 mg Documented by: Sodium Chloride () 1,000 mls @ 125 mls/hr IV .Q8H [facility] Last Infusion: 04/09/19 06:10 Dose: 125 mls/hr Documented by: Vancomycin IV Pharmacy to Dose (1 ea/ Sodium Chloride) 500 mls @ 250 mls/hr IV X1 PRN; Protocol PRN Reason: Rx to Dose Piperacillin Sod/Tazobactam (Sod 3.375 gm/ Sodium Chloride) 50 mls @ 12.5 mls/hr IV Q8 [facility] Last Admin: 04/09/19 06:08 Dose: 12.5 mls/hr Documented by: Vancomycin HCl 1,250 mg/ (Sodium Chloride) 275 mls @ 167 mls/hr IV Q12H [facility] Last Infusion: 04/09/19 06:10 Dose: Infused Documented by: Sodium Chloride () 250 mls @ 15 mls/hr IV .[id number] PRN PRN Reason: Saline Flush Last Infusion: 04/08/19 13:10 Dose: 0 mls/hr Documented by: Sodium Chloride () 250 mls @ 15 mls/hr IV .[id number] PRN PRN Reason: Additional IVPB Infusion Levothyroxine Sodium (Synthroid) 200 mcg PO DAILY@0600 [facility] Last Admin: 04/09/19 06:08 Dose: 200 mcg Documented by: Liothyronine Sodium (Cytomel) 5 mcg PO BID@0700,1600 [facility] Last Admin: 02/27/20 06:08 Dose: 5 mcg Documented by: Meloxicam (Mobic) 15 mg PO DAILY [facility] Last Admin: 04/08/19 10:36 Dose: Not Given Documented by: Metoprolol Tartrate (Lopressor (Beta Mark)) 25 mg PO TID [facility] Last Admin: 04/09/19 06:08 Dose: 25 mg Documented by: Morphine Sulfate () 1 - 2 mg IV Q4H PRN PRN PRN Reason: Pain Score 4-5/10 Last Admin: 04/08/19 20:21 Dose: 2 mg Documented by: Morphine Sulfate () 2 - 4 mg IV Q3H PRN PRN PRN Reason: Pain Score 6-10/10 Last Admin: 04/09/19 06:14 Dose: 2 mg Documented by: Ondansetron HCl (Zofran) 4 mg IV Q8H PRN PRN PRN Reason: Nausea Oxycodone HCl (Oxyir) 5 mg PO Q4H PRN PRN PRN Reason: Pain Score 4-5/10 Last Admin: 04/09/19 02:55 Dose: 5 mg Documented by: Pantoprazole Sodium (Protonix) 40 mg PO DAILY [facility] Last Admin: 04/08/19 10:36 Dose: 40 mg Documented by: Sodium Chloride () 10 - 40 ml IV UD PRN PRN Reason: SALINE FLUSH Last Admin: 04/09/19 06:14 Dose: 10 ml Documented by: Medical Necessity - Tobacco Use Smoking Status: Former smoker - Patient smoked approximately 3 cigarettes/day from the age of 48 until approximately 6 years ago. Tobacco Use: Non-smoker Assessment/Plan All Active Problems (Last Updated 04/07/19 @ 20:[address] Navin Johnson, DP) Severe sepsis (Acute) UTI (urinary tract infection) (Acute) Osteomyelitis (Acute) Postural orthostatic tachycardia syndrome (Acute) Gennaro's thyroiditis (Acute) patient was examined and informed of current findings. picture of right foot was taken for documentation. under sterile technique, the right foot was irrigated with normal saline. at present time, cultures and pathology are obviously pending. intra-op findings demonstrated 5th metatarsal appearing healthy. after long discussion, patient would like to avoid any partial 5th ray resection if possible. In light of this opinion, she would like to try antibiotics in event bone were infected. I will plan for delayed closure tomorrow. I will allow partial weightbearing to right heel. ID is consulted. micro pending. culture growing strep and ecoli. will make patient clear liquid breakfast tomorrow and npo thereafter possible discharge once antibiotics determined if necessary
[2019-04-09 08:37] LABS: Absolute Lymphocyte Count 2.55 X10^3/uL (0.83-4.51); Absolute Neutrophil Count 4.3 X10^3/uL (2.0-7.7); Basophil# 0.06 X10^3/uL; Basophil% 0.8 % (0-1); Eosinophil# 0.26 X10^3/uL; Eosinophils% 3.4 % (0-5); Hematocrit 36.7 % (37-47); Hemoglobin 11.6 g/dL (12.0-15.0); Lymphocyte # 2.55 X10^3/ul (4.0); Lymphocyte % 32.9 % (19-41); Mean Corp Hgb Conc 31.6 g/dL (32-36); Mean Corpuscular Hgb 28.4 pg (27.0-32.0); Mean Platelet Vol. 9.7 fl (6.2-12.0); Monocyte# 0.57 X10^3/uL; Monocyte% 7.3 % (0-10); NRBC Flagged by Analyzer 0 % (0-5); Neutrophil % 55.3 % (47-70); Platelet Count 258 K/mm3 (150-450); RBC Distribution Width CV 15.4 % (11.6-14.6); RBC Distribution Width SD 50.8 fl (35.1-43.9); Red Blood Count 4.08 M/mm3 (4.2-5.4); White Blood Count 7.8 K/mm3 (4.4-11.0)
[2019-04-09] MEDS: Gabapentin 300 MG Capsule 600 MG PO (09:12)
[2019-04-09] MEDS: DULoxetine Hcl 60 MG Capsule PO ×2 (09:13→20:38)
[2019-04-09] MEDS: Ferrous Sulfate 325 MG Tablet PO ×2 (09:13→16:21)
[2019-04-09] MEDS: Pantoprazole Sodium 40 MG Tablet PO (09:14)
[2019-04-09] MEDS: Meloxicam 15 MG Tablet PO (09:14)
[2019-04-09] MEDS: ARIPiprazole 5 MG Tablet 15 MG PO (09:14)
--- NOTE | 2019-04-09 10:35 | PCM.HP.ID ---
Problem List (1) Osteomyelitis Status: Acute Qualifiers: Osteomyelitis type: unspecified type Osteomyelitis location: foot Laterality: right Qualified Code(s): M86.9 - Osteomyelitis, unspecified Reason for Consult: osteo Consulted by: Dr. Johnson History of Present Illness: The patient is a 58 year old F with bipolar, presented for surgery on R foot. Developed wound there about 1-2 months ago. Noticed some swelling, poked it with a needle few weeks ago, had purulence underneath a callus. Had progressive pain, redness, swelling. Some chills. Saw Dr. Johnson, given augmentin for past week without improvement. No n/v/d. Taken to OR yesterday for R 5th toe amputation. On vanc/zosyn, feeling better. Pain had been severe prior to admit. Also reports ongoing issues with intermittent uti, had been having dysuria and thick/foul smelling urine. Now dysuria and frequency are improved. Full ROS performed and neg except as noted above. - Medical History Past Medical History (Chronic Problems): Chronic Problems (Last Updated 04/07/19 @ 20:[address] Navin Johnson, DP) Anxiety and depression (Chronic) Bipolar disorder (Chronic) Obesity (BMI 30-39.9) (Chronic) History of Gennaro thyroiditis (Chronic) Postural orthostatic tachycardia syndrome (Chronic) Allergies/Adverse Reactions: Allergies atropine sulfate [From ] Allergy (Verified 04/07/19 15:45) Anaphylaxis Cephalosporins Allergy (Verified 04/07/19 15:45) Anaphylaxis fluoxetine Allergy (Verified 04/07/19 15:45) Hives hyoscyamine sulfate [From ] Allergy (Verified 04/07/19 15:45) Anaphylaxis phenobarbital [From ] Allergy (Verified 04/07/19 15:45) Anaphylaxis scopolamine hydrobromide [From ] Allergy (Verified 04/07/19 15:45) Anaphylaxis divalproex sodium [From Depakote] Adverse Reaction (Verified 04/07/19 15:45) Other INSECT BITES Allergy (Uncoded 04/07/19 15:45) Swelling Home Medications: Ambulatory Orders Medication Instructions Recorded Aripiprazole 15 mg PO DAILY 10/16/18 Duloxetine Hcl [Cymbalta] 60 mg PO BID 10/16/18 Ergocalciferol (Vitamin D2) 50,000 unit PO ADAN 10/16/18 [Vitamin D2] Ferrous Sulfate 325 mg PO BID 10/16/18 Gabapentin [Neurontin] 600 mg PO DAILY 10/16/18 Gabapentin [Neurontin] 900 mg PO QHS 10/16/18 Levothyroxine Sodium 200 mcg PO DAILY 10/16/18 Liothyronine Sodium [Cytomel] 5 mcg PO BID 10/16/18 Meloxicam [Mobic] 15 mg PO DAILY 10/16/18 Metoprolol Tartrate 25 mg PO TID 10/16/18 Pantoprazole Sodium [Protonix] 40 mg PO DAILY 10/16/18 Hydroxyzine HCl 50 mg PO QHS 04/07/19 - Social History SMOKING STATUS:: Former smoker Vital Signs Temp Pulse Resp BP Pulse Ox 97.9 F 54 L 16 109/87 H 98 04/09/19 09:15 04/09/19 09:15 04/09/19 09:15 04/09/19 09:15 04/09/19 09:15 Oxygen Delivery Method Room Air Weight: 97.8 kg Body Mass Index (BMI) 39.4 Microbiology Past 72 Hours 04/07/19 17:40 Urine Culture - Preliminary Urine Catheter - Catheter Presumptive E. coli 04/07/19 17:40 Gram Stain - Final Wound - Toe Wound Culture - Final Streptococcus agalactiae (B) Coag Negative Staph Laboratory Tests Past 24 Hrs 04/09/19 04/09/19 03:18 08:30 WBC 7.8 RBC 4.08 L Hgb 11.6 L Hct 36.7 L MCV 90.0 MCH 28.4 MCHC 31.6 L RDW Std Deviation 50.8 H RDW Coeff of Vini 15.4 H Plt Count 258 MPV 9.7 Immature Gran % (Auto) 0.300 Neut % (Auto) 55.3 Lymph % (Auto) 32.9 [place] % (Auto) 7.3 Eos % (Auto) 3.4 Baso % (Auto) 0.8 Absolute Neuts (auto) 4.3 Absolute Lymphs (auto) 2.55 Nucleated RBC % 0 Vancomycin Trough 18.9 H - Other Studies Radiology: [] reviewed Other Studies: [] Route of nutrition/ use of supplements: [] Nutritional Intake: [] IV Site: [] Patel Catheter: [] - Physical Exam General: Alert, Oriented x3, Cooperative, No apparent distress HEENT: Atraumatic, PERRLA, EOMI Neck: Supple, No Nodes Lungs: Clear to auscultation, Normal air movement Cardiovascular: Regular rate, Regular Rhythm, No murmurs Abdomen: Soft, Non Tender, Non-Distended Extremities: Edema Skin: Ulcer/ Wound - R foot wrapped IV Site: Peripheral, without redness Musculoskeletal: No Tenderness to Palpation of Joints or Extremities Neurological: Cranial nerves II-XII grossly intact - Assessment/Plan Antibiotics: [] Assessment/Plan: [] Active and Suspected Problems (Last Updated 04/07/19 @ 20:[address] Navin Johnson, DPM) Osteomyelitis (Acute) R foot osteo, now s/p 5th toe amputation by Dr. Johnson 04/08/19. Wound cx with CoNS and GBS so far. No fever here. Surg cx and path pending. Cont vanc/zosyn. recurrent uti - symptoms improved, UA with heavy pyuria, UCx with ecoli so far. Abx as above. anaphylaxis with keflex - no issues with augmentin as an outpt, doing well with zosyn here Will follow, thank you, d/w Dr. Johnson yesterday.
--- NOTE | 2019-04-09 11:00 | CASEMGMT ---
Social Work Note SW completed Advanced Directives with pt. Original provided to pt and copy placed on pt's chart. Marianne Galeano MAITRE D', DESIGN ARCHITECT
[2019-04-09] MEDS: Acetaminophen 325 MG Tablet 650 MG PO (20:37)
[2019-04-09] MEDS: hydrOXYzine PAM 25 MG Capsule 50 MG PO (20:38)
[2019-04-09] MEDS: Gabapentin 300 MG Capsule 900 MG PO (20:39)
[2019-04-10] VITALS (12 sets, daily range): BP systolic 101–134; BP diastolic 51–74; PULSE 56–72; RESP 16–18; TEMP 36.4–36.9; O2SAT 64–98; BMI 39.4
[2019-04-10] MEDS: 0.9% Normal Saline 1,000 ML 125 ML IV (03:03)
[2019-04-10] MEDS: oxyCODONE 5 MG Tablet PO ×2 (04:50→18:55)
[2019-04-10] MEDS: Metoprolol Tartrate 25 MG Tablet PO ×2 (04:51→22:22)
[2019-04-10 06:56] LABS: Absolute Lymphocyte Count 3.29 X10^3/uL (0.83-4.51); Absolute Neutrophil Count 2.5 X10^3/uL (2.0-7.7); Basophil# 0.05 X10^3/uL; Basophil% 0.7 % (0-1); Eosinophil# 0.35 X10^3/uL; Eosinophils% 5.1 % (0-5); Hemoglobin 11.3 g/dL (12.0-15.0); Lymphocyte # 3.29 X10^3/ul (4.0); Lymphocyte % 47.6 % (19-41); Mean Corp Hgb Conc 31.4 g/dL (32-36); Mean Corpuscular Hgb 28.5 pg (27.0-32.0); Mean Corpuscular Volume 90.7 fL (81-99); Mean Platelet Vol. 9.4 fl (6.2-12.0); Monocyte# 0.69 X10^3/uL; NRBC Flagged by Analyzer 0 % (0-5); Neutrophil % 36.2 % (47-70); POSITIVE MORPHOLOGY YES; Platelet Count 225 K/mm3 (150-450); RBC Distribution Width CV 15.4 % (11.6-14.6); RBC Distribution Width SD 51.2 fl (35.1-43.9); Red Blood Count 3.97 M/mm3 (4.2-5.4); White Blood Count 6.9 K/mm3 (4.4-11.0)
[2019-04-10 06:58] LABS: Differential Indicated SCAN CRITERIA MET
[2019-04-10 07:08] LABS: Anion Gap 3 (5-15); BUN 11 mg/dL (7-18); BUN/Creat Ratio 11.5 RATIO (10-20); Calcium,Total 8.1 mg/dL (8.5-10.1); Chloride 120 mmol/L (98-107); Creatinine, Serum 0.96 mg/dL (0.55-1.02); EST Glomerular Filtration Rate 63 mL/min (>60); Est Glom Filt Rate - Afr Amer 77 mL/min (>60); Glucose 102 mg/dL (74-106); Potassium 4.2 mmol/L (3.5-5.1); Sodium Level 148 mmol/L (136-145)
--- NOTE | 2019-04-10 07:15 | PN.SURG_ITS ---
Patient Problems: Active and Suspected Problems (Last Updated 04/07/19 @ 20:[address] Navin Johnson, WENDI) Osteomyelitis (Acute) Subjective: patient seen at bedside this morning. no complaints. Objective: alert and orientated x 3. no acute distress vascular: DP and PT pulses palpable to right foot. cft is less than 5 seconds. skin temperature is warm to warm. no erythema is noted to right foot. no edema is noted. derm: there is open surgical wound to right foot. no purulence, no redness, no bleeding. wound edges appear healthy. m/s: no calf pain to right foot. - Physical Exam Vitals/I&O's: Vital Signs Temp Pulse Resp BP Pulse Ox 98 F 72 16 125/51 H 93 04/10/19 03:00 04/10/19 04:51 04/10/19 03:00 04/10/19 03:00 04/10/19 03:00 Oxygen Delivery Method Room Air Weight: 97.8 kg Body Mass Index (BMI) 39.4 Intake and Output for Last 24 Hours 04/08/19 04/09/19 04/10/19 23:59 23:59 23:59 Intake Total 3915.50 / 4315.50 4853.91 / 4853.91 1317.33 / 1317.33 Balance 3915.50 / 4315.50 4853.91 / 4853.91 1317.33 / 1317.33 Microbiology Past 72 Hours 04/08/19 15:11 Other - Other Gram Stain - Final 04/08/19 15:11 Other - Other Wound Culture - Preliminary No growth-Final to follow 04/08/19 15:00 Other - Other Gram Stain - Final 04/08/19 15:00 Other - Other Wound Culture - Preliminary No growth-Final to follow 04/07/19 17:40 Urine Catheter - Catheter Urine Culture - Preliminary Presumptive E. coli 04/07/19 17:40 Wound - Toe Gram Stain - Final 04/07/19 17:40 Wound - Toe Wound Culture - Final Streptococcus agalactiae (B) Coag Negative Staph Laboratory Results 04/09/19 08:30: WBC 7.8, RBC 4.08 L, Hgb 11.6 L, Hct 36.7 L, MCV 90.0, MCH 28.4, MCHC 31.6 L, RDW Std Deviation 50.8 H, RDW Coeff of Vini 15.4 H, Plt Count 258, MPV 9.7, Immature Gran % (Auto) 0.300, Neut % (Auto) 55.3, Lymph % (Auto) 32.9, [place] % (Auto) 7.3, Eos % (Auto) 3.4, Baso % (Auto) 0.8, Absolute Neuts (auto) 4.3, Absolute Lymphs (auto) 2.55, Nucleated RBC % 0 04/10/19 06:40: WBC 6.9, RBC 3.97 L, Hgb 11.3 L, Hct 36.0 L, MCV 90.7, MCH 28.5, MCHC 31.4 L, RDW Std Deviation 51.2 H, RDW Coeff of Vini 15.4 H, Plt Count 225, MPV 9.4, Immature Gran % (Auto) 0.400, Neut % (Auto) 36.2 L, Lymph % (Auto) 47.6 H, [place] % (Auto) 10.0, Eos % (Auto) 5.1 H, Baso % (Auto) 0.7, Absolute Neuts (auto) 2.5, Absolute Lymphs (auto) 3.29, Nucleated RBC % 0 04/10/19 06:40: Sodium 148 H, Potassium 4.2, Chloride 120 H, Carbon Dioxide 25.0, Anion Gap 3 L, BUN 11, Creatinine 0.96, Estim Creat Clear Calc 49.90, Est GFR (MDRD) Af Amer 77, Est GFR (MDRD) Non-Af 63, BUN/Creatinine Ratio 11.5, Glucose 102, Calcium 8.1 L Current Medications Acetaminophen (Tylenol) 650 mg PO Q6H PRN PRN PRN Reason: Pain Score 1-3 /Temp>100.7 Last Admin: 04/09/19 20:37 Dose: 650 mg Documented by: Al Hydroxide/Mg Hydroxide (Mylanta Ii) 30 ml PO Q6H PRN PRN PRN Reason: Gastric Burning Aripiprazole (Abilify) 15 mg PO DAILY [facility] Last Admin: 04/09/19 09:14 Dose: 15 mg Documented by: Duloxetine HCl (Cymbalta) 60 mg PO BID [facility] [place] Last Admin: 04/09/19 20:38 Dose: 60 mg Documented by: Ergocalciferol (Vitamin D) 50,000 unit PO [facility] Ferrous Sulfate (Ferrous Sulfate) 325 mg PO BID@1200,1700 [facility] Last Admin: 04/09/19 16:21 Dose: 325 mg Documented by: Gabapentin (Neurontin) 900 mg PO QHS [facility] [place] Last Admin: 04/09/19 20:39 Dose: 900 mg Documented by: Gabapentin (Neurontin) 600 mg PO DAILY@0800 [facility] [place] Last Admin: 04/09/19 09:12 Dose: 600 mg Documented by: Hydralazine HCl (Apresoline Iv) 10 mg IV Q4H PRN PRN PRN Reason: SBP > 160 Hydroxyzine Pamoate (Vistaril Pamoate Capsule) 50 mg PO QHS [facility] [place] Last Admin: 04/09/19 20:38 Dose: 50 mg Documented by: Sodium Chloride () 1,000 mls @ 125 mls/hr IV .Q8H [facility] [place] Last Admin: 04/10/19 03:03 Dose: 125 mls/hr Documented by: Vancomycin IV Pharmacy to Dose (1 ea/ Sodium Chloride) 500 mls @ 250 mls/hr IV X1 PRN; Protocol PRN Reason: Rx to Dose Piperacillin Sod/Tazobactam (Sod 3.375 gm/ Sodium Chloride) 50 mls @ 12.5 mls/hr IV Q8 [facility] Last Admin: 04/10/19 04:57 Dose: 12.5 mls/hr Documented by: Vancomycin HCl 1,250 mg/ (Sodium Chloride) 275 mls @ 167 mls/hr IV Q12H [facility] [place] Last Infusion: 04/10/19 04:53 Dose: Infused Documented by: Sodium Chloride () 250 mls @ 15 mls/hr IV .[id number] PRN PRN Reason: Saline Flush Last Infusion: 04/10/19 04:57 Dose: 0 mls/hr Documented by: Sodium Chloride () 250 mls @ 15 mls/hr IV .[id number] PRN PRN Reason: Additional IVPB Infusion Levothyroxine Sodium (Synthroid) 200 mcg PO DAILY@0600 [facility] [place] Last Admin: 04/10/19 06:00 Dose: Not Given Documented by: Liothyronine Sodium (Cytomel) 5 mcg PO BID@0700,1600 [facility] [place] Last Admin: 04/10/19 06:01 Dose: Not Given Documented by: Meloxicam (Mobic) 15 mg PO DAILY [facility] [place] Last Admin: 04/09/19 09:14 Dose: 15 mg Documented by: Metoprolol Tartrate (Lopressor (Beta Mark)) 25 mg PO TID [facility] Last Admin: 04/10/19 04:51 Dose: 25 mg Documented by: Morphine Sulfate () 1 - 2 mg IV Q4H PRN PRN PRN Reason: Pain Score 4-5/10 Last Admin: 04/08/19 20:21 Dose: 2 mg Documented by: Morphine Sulfate () 2 - 4 mg IV Q3H PRN PRN PRN Reason: Pain Score 6-10/10 Last Admin: 04/09/19 06:14 Dose: 2 mg Documented by: Ondansetron HCl (Zofran) 4 mg IV Q8H PRN PRN PRN Reason: Nausea Oxycodone HCl (Oxyir) 5 mg PO Q4H PRN PRN PRN Reason: Pain Score 4-5/10 Last Admin: 04/10/19 04:50 Dose: 5 mg Documented by: Pantoprazole Sodium (Protonix) 40 mg PO DAILY [facility] [place] Last Admin: 04/09/19 09:14 Dose: 40 mg Documented by: Sodium Chloride () 10 - 40 ml IV UD PRN PRN Reason: SALINE FLUSH Last Admin: 04/09/19 06:14 Dose: 10 ml Documented by: Medical Necessity - Tobacco Use Smoking Status: Former smoker - Patient smoked approximately 3 cigarettes/day from the age of 48 until approximately 6 years ago. Tobacco Use: Non-smoker Assessment/Plan All Active Problems (Last Updated 04/07/19 @ 20:[address] Navin Johnson, DP) Severe sepsis (Acute) UTI (urinary tract infection) (Acute) Osteomyelitis (Acute) Postural orthostatic tachycardia syndrome (Acute) Gennaro's thyroiditis (Acute) patient is s/p right 5th toe amputation. cultures and pathology pending. wound cultures showing strep and ecoli. gram stain for 5th metatarsal with no organisms seen. I discussed plan of care with patient. WE will plan to proceed with delayed closure today. patient desires to try and salvage the remainder of this foot without further bone resection. I have explained to patient that if partial 5th ray resection were performed, it could potentially lead to transfer lesions of 4th metatarsal. being that it appears that I have adequate soft-tissue to achieve closure, I will hold on any further bone resection at this time. certainly there is risk that if 5th metatarsal were to show osteomyelitis either with pathology or micro, she will either require further resection at a later time or treat with antibiotics. she understands this. I will plan for delayed closure today. Once antibiotics arranged if necessary, we can discuss discharge. she is to remain partial weightbearing to right heel only.
--- NOTE | 2019-04-10 07:17 | NURSING ---
Dr Johnson in to see patient this am. Plans to take patient back to the OR this afternoon for wound closure. dressing dry and intact at this time.
[2019-04-10 07:19] LABS: Differential Comment SCANNED; Platelet Estimate ADEQUATE (ADEQ); Reactive Lymphocyte RARE
--- NOTE | 2019-04-10 07:23 | PCM.PN.HOSP ---
Patient Problems: Active and Suspected Problems (Last Updated 04/07/19 @ 20:[address] Navin Johnson, WENDI) Osteomyelitis (Acute) Reason for Visit: Osteomyelitis Subjective: Patient seen secondary to undergo delayed wound closure by podiatry. Urine cultures reviewed positive for ESBL E. coli (colony count 25-50 K). Per patient she still has frequency and dysuria Objective: GENERAL: cooperative HEENT: Atraumatic; EYES; Anicteric, Normal Conjunctiva NECK; supple, normal thyroid, RESPIRATORY: Diminished to auscultation CARDIOVASCULAR: Regular S1 S2, GI: soft, normoactive bowel sounds, : No Renal angle tenderness; EXTREMITIES: Right foot in surgical dressing MUSCULOSKELETAL: no muscle waisting NEURO: Awake; no lateralizing signs. SKIN: No Rash PSYCH; Flat affect Vitals/I&O's: Vital Signs Temp Pulse Resp BP Pulse Ox 98 F 72 16 125/51 H 93 04/10/19 03:00 04/10/19 04:51 04/10/19 03:00 04/10/19 03:00 04/10/19 03:00 Oxygen Delivery Method Room Air Weight: 97.8 kg Body Mass Index (BMI) 39.4 Intake and Output for Last 24 Hours 04/08/19 04/09/19 04/10/19 23:59 23:59 23:59 Intake Total 3915.50 / 4315.50 4853.91 / 4853.91 1317.33 / 1317.33 Balance 3915.50 / 4315.50 4853.91 / 4853.91 1317.33 / 1317.33 Microbiology Past 72 Hours 04/08/19 15:11 Other - Other Gram Stain - Final 04/08/19 15:11 Other - Other Wound Culture - Preliminary No growth-Final to follow 04/08/19 15:00 Other - Other Gram Stain - Final 04/08/19 15:00 Other - Other Wound Culture - Preliminary No growth-Final to follow 04/07/19 17:40 Urine Catheter - Catheter Urine Culture - Preliminary Presumptive E. coli 04/07/19 17:40 Wound - Toe Gram Stain - Final 04/07/19 17:40 Wound - Toe Wound Culture - Final Streptococcus agalactiae (B) Coag Negative Staph Laboratory Results 04/09/19 08:30: WBC 7.8, RBC 4.08 L, Hgb 11.6 L, Hct 36.7 L, MCV 90.0, MCH 28.4, MCHC 31.6 L, RDW Std Deviation 50.8 H, RDW Coeff of Vini 15.4 H, Plt Count 258, MPV 9.7, Immature Gran % (Auto) 0.300, Neut % (Auto) 55.3, Lymph % (Auto) 32.9, [place] % (Auto) 7.3, Eos % (Auto) 3.4, Baso % (Auto) 0.8, Absolute Neuts (auto) 4.3, Absolute Lymphs (auto) 2.55, Nucleated RBC % 0 04/10/19 06:40: WBC 6.9, RBC 3.97 L, Hgb 11.3 L, Hct 36.0 L, MCV 90.7, MCH 28.5, MCHC 31.4 L, RDW Std Deviation 51.2 H, RDW Coeff of Vini 15.4 H, Plt Count 225, MPV 9.4, Immature Gran % (Auto) 0.400, Neut % (Auto) 36.2 L, Lymph % (Auto) 47.6 H, [place] % (Auto) 10.0, Eos % (Auto) 5.1 H, Baso % (Auto) 0.7, Absolute Neuts (auto) 2.5, Absolute Lymphs (auto) 3.29, Nucleated RBC % 0, Differential Comment SCANNED, Reactive Lymphocytes RARE, Platelet Estimate ADEQUATE 04/10/19 06:40: Sodium 148 H, Potassium 4.2, Chloride 120 H, Carbon Dioxide 25.0, Anion Gap 3 L, BUN 11, Creatinine 0.96, Estim Creat Clear Calc 49.90, Est GFR (MDRD) Af Amer 77, Est GFR (MDRD) Non-Af 63, BUN/Creatinine Ratio 11.5, Glucose 102, Calcium 8.1 L Current Medications Acetaminophen (Tylenol) 650 mg PO Q6H PRN PRN PRN Reason: Pain Score 1-3 /Temp>100.7 Last Admin: 04/09/19 20:37 Dose: 650 mg Documented by: Al Hydroxide/Mg Hydroxide (Mylanta Ii) 30 ml PO Q6H PRN PRN PRN Reason: Gastric Burning Aripiprazole (Abilify) 15 mg PO DAILY [facility] Last Admin: 04/09/19 09:14 Dose: 15 mg Documented by: Duloxetine HCl (Cymbalta) 60 mg PO BID [facility] Last Admin: 04/09/19 20:38 Dose: 60 mg Documented by: Ergocalciferol (Vitamin D) 50,000 unit PO [facility] Ferrous Sulfate (Ferrous Sulfate) 325 mg PO BID@1200,1700 [facility] Last Admin: 04/09/19 16:21 Dose: 325 mg Documented by: Gabapentin (Neurontin) 900 mg PO QHS [facility] Last Admin: 04/09/19 20:39 Dose: 900 mg Documented by: Gabapentin (Neurontin) 600 mg PO DAILY@0800 [facility] [place] Last Admin: 04/09/19 09:12 Dose: 600 mg Documented by: Hydralazine HCl (Apresoline Iv) 10 mg IV Q4H PRN PRN PRN Reason: SBP > 160 Hydroxyzine Pamoate (Vistaril Pamoate Capsule) 50 mg PO QHS [facility] [place] Last Admin: 04/09/19 20:38 Dose: 50 mg Documented by: Sodium Chloride () 1,000 mls @ 125 mls/hr IV .Q8H [facility] [place] Last Admin: 04/10/19 03:03 Dose: 125 mls/hr Documented by: Vancomycin IV Pharmacy to Dose (1 ea/ Sodium Chloride) 500 mls @ 250 mls/hr IV X1 PRN; Protocol PRN Reason: Rx to Dose Piperacillin Sod/Tazobactam (Sod 3.375 gm/ Sodium Chloride) 50 mls @ 12.5 mls/hr IV Q8 [facility] [place] Last Admin: 04/10/19 04:57 Dose: 12.5 mls/hr Documented by: Vancomycin HCl 1,250 mg/ (Sodium Chloride) 275 mls @ 167 mls/hr IV Q12H [facility] [place] Last Infusion: 04/10/19 04:53 Dose: Infused Documented by: Sodium Chloride () 250 mls @ 15 mls/hr IV .[id number] PRN PRN Reason: Saline Flush Last Infusion: 04/10/19 04:57 Dose: 0 mls/hr Documented by: Sodium Chloride () 250 mls @ 15 mls/hr IV .[id number] PRN PRN Reason: Additional IVPB Infusion Levothyroxine Sodium (Synthroid) 200 mcg PO DAILY@0600 [facility] [place] Last Admin: 04/10/19 06:00 Dose: Not Given Documented by: Liothyronine Sodium (Cytomel) 5 mcg PO BID@0700,1600 [facility] [place] Last Admin: 04/10/19 06:01 Dose: Not Given Documented by: Meloxicam (Mobic) 15 mg PO DAILY [facility] [place] Last Admin: 04/09/19 09:14 Dose: 15 mg Documented by: Metoprolol Tartrate (Lopressor (Beta Mark)) 25 mg PO TID [facility] Last Admin: 04/10/19 04:51 Dose: 25 mg Documented by: Morphine Sulfate () 1 - 2 mg IV Q4H PRN PRN PRN Reason: Pain Score 4-5/10 Last Admin: 04/08/19 20:21 Dose: 2 mg Documented by: Morphine Sulfate () 2 - 4 mg IV Q3H PRN PRN PRN Reason: Pain Score 6-10/10 Last Admin: 04/09/19 06:14 Dose: 2 mg Documented by: Ondansetron HCl (Zofran) 4 mg IV Q8H PRN PRN PRN Reason: Nausea Oxycodone HCl (Oxyir) 5 mg PO Q4H PRN PRN PRN Reason: Pain Score 4-5/10 Last Admin: 04/10/19 04:50 Dose: 5 mg Documented by: Pantoprazole Sodium (Protonix) 40 mg PO DAILY [facility] Last Admin: 04/09/19 09:14 Dose: 40 mg Documented by: Sodium Chloride () 10 - 40 ml IV UD PRN PRN Reason: SALINE FLUSH Last Admin: 04/09/19 06:14 Dose: 10 ml Documented by: STROKE Vital Signs/Narrative: Vital Signs Pulse 04/10/19 04:51 72 Medical Necessity - Tobacco Use Smoking Status: Former smoker - Patient smoked approximately 3 cigarettes/day from the age of 48 until approximately 6 years ago. Tobacco Use: Non-smoker Assessment/Plan All Active Problems (Last Updated 04/07/19 @ 20:[address] Navin Johnson DPM) Severe sepsis (Acute) UTI (urinary tract infection) (Acute) Osteomyelitis (Acute) Postural orthostatic tachycardia syndrome (Acute) Gennaro's thyroiditis (Acute) Patient is a 58-year-old lady admitted with a nonhealing wound of right foot imaging studies obtained on admission demonstrated features suspicious for osteomyelitis involving the fifth proximal phalanx 1. Osteomyelitis involving the right fifth proximal phalanx in a patient with underlying nonhealing wound involving the right foot ?Patient admitted to orthopedic service started on broad-spectrum antibiotic therapy( vancomycin as well as piperacillin?tazobactam). Cultures sent will recommend obtaining consultation with infectious disease -04/09/2019; Patient underwent right fifth toe amputation on 04/08/2019 with cultures sent. Wound cultures so far positive for Streptococcus group B.consult was also placed to infectious disease. Plan is for patient to undergo wound closure on 04/10/2019. ?04/10/2019; all cultures so far positive for strep agalactiae as well as coagulase-negative staph. Antibiotic therapy deferred to ID 2. History of Gennaro thyroiditis with subsequent hypothyroidism ?Patient is on levothyroxine did continue 3. PSVT ?Currently asymptomatic symptoms controlled with metoprolol 4. History of postural orthostatic tachycardic syndrome ?On metoprolol 5. Obesity with BMI of 39.4 ?Weight loss advised 6. GERD ?Patient is on PPI 7. Recurrent UTI ?Urine cultures obtained came back positive for ESBL E. coli. ID on board will defer subsequent antibiotic management 8. DVT prophylaxis ?Would recommend Lovenox if no contraindication Microbiology 04/07/19 16:55 Blood Culture (Wb) - Anticubital Right Blood Culture - Preliminary No growth in 48 hours. 04/07/19 16:50 Blood Culture (Wb) - Anticubital Left Blood Culture - Preliminary No growth in 48 hours. 04/07/19 17:40 Urine Catheter - Catheter Urine Culture - Final Presumptive E. coli 04/08/19 15:11 Other - Other Gram Stain - Final 04/08/19 15:11 Other - Other Wound Culture - Preliminary No growth-Final to follow 04/08/19 15:00 Other - Other Gram Stain - Final 04/08/19 15:00 Other - Other Wound Culture - Preliminary No growth-Final to follow 04/07/19 17:40 Wound - Toe Gram Stain - Final 04/07/19 17:40 Wound - Toe Wound Culture - Final Streptococcus agalactiae (B) Coag Negative Staph Code Visit Inpatient E&M: 04146 Subs Hosp L2
[2019-04-10] MEDS: Gabapentin 300 MG Capsule 600 MG PO (08:18)
[2019-04-10] MEDS: DULoxetine Hcl 60 MG Capsule PO ×2 (08:18→22:22)
[2019-04-10] MEDS: ARIPiprazole 5 MG Tablet 15 MG PO (08:19)
[2019-04-10] MEDS: Pantoprazole Sodium 40 MG Tablet PO (08:19)
[2019-04-10] MEDS: 0.9% Normal Saline 1,000 ML 15 ML IV ×2 (13:18→23:05)
[2019-04-10] MEDS: 0.9% Saline Lock 10 ML Syringe IV (13:27)
--- NOTE | 2019-04-10 16:08 | PCM.PN.ID ---
Patient Problems: Active and Suspected Problems (Last Updated 04/07/19 @ 20:[address] Navin Johnson, DPKassie) Osteomyelitis (Acute) Subjective: Feeling well, dysuria continues to improve. OR planned for today for closure. No n/v/d. - Physical Exam Vitals/I&O's: Vital Signs Temp Pulse Resp BP Pulse Ox 97.6 F L 59 L 16 120/74 98 04/10/19 13:02 04/10/19 13:02 04/10/19 13:02 04/10/19 13:02 04/10/19 13:02 Oxygen Delivery Method Room Air Weight: 97.8 kg Body Mass Index (BMI) 39.4 Intake and Output for Last 24 Hours 04/08/19 04/09/19 04/10/19 23:59 23:59 23:59 Intake Total 3915.50 / 4315.50 4853.91 / 4853.91 2325.91 / 2325.91 Balance 3915.50 / 4315.50 4853.91 / 4853.91 2325.91 / 2325.91 General: Alert, Cooperative, No apparent distress Lungs: Clear to auscultation, Normal air movement Cardiovascular: Regular rate, Regular Rhythm Abdomen: Soft, Non Tender, Non-Distended Skin: Ulcer/ Wound - foot wrapped Microbiology Past 72 Hours 04/07/19 16:55 Blood Culture (Wb) - Anticubital Right Blood Culture - Preliminary No growth in 48 hours. 04/07/19 16:50 Blood Culture (Wb) - Anticubital Left Blood Culture - Preliminary No growth in 48 hours. 04/07/19 17:40 Urine Catheter - Catheter Urine Culture - Final Presumptive E. coli 04/08/19 15:11 Other - Other Gram Stain - Final 04/08/19 15:11 Other - Other Wound Culture - Preliminary No growth-Final to follow 04/08/19 15:00 Other - Other Gram Stain - Final 04/08/19 15:00 Other - Other Wound Culture - Preliminary No growth-Final to follow 04/07/19 17:40 Wound - Toe Gram Stain - Final 04/07/19 17:40 Wound - Toe Wound Culture - Final Streptococcus agalactiae (B) Coag Negative Staph Laboratory Results 04/10/19 06:40: WBC 6.9, RBC 3.97 L, Hgb 11.3 L, Hct 36.0 L, MCV 90.7, MCH 28.5, MCHC 31.4 L, RDW Std Deviation 51.2 H, RDW Coeff of Vini 15.4 H, Plt Count 225, MPV 9.4, Immature Gran % (Auto) 0.400, Neut % (Auto) 36.2 L, Lymph % (Auto) 47.6 H, [place] % (Auto) 10.0, Eos % (Auto) 5.1 H, Baso % (Auto) 0.7, Absolute Neuts (auto) 2.5, Absolute Lymphs (auto) 3.29, Nucleated RBC % 0, Differential Comment SCANNED, Reactive Lymphocytes RARE, Platelet Estimate ADEQUATE 04/10/19 06:40: Sodium 148 H, Potassium 4.2, Chloride 120 H, Carbon Dioxide 25.0, Anion Gap 3 L, BUN 11, Creatinine 0.96, Estim Creat Clear Calc 49.90, Est GFR (MDRD) Af Amer 77, Est GFR (MDRD) Non-Af 63, BUN/Creatinine Ratio 11.5, Glucose 102, Calcium 8.1 L Current Medications Acetaminophen (Tylenol) 650 mg PO Q6H PRN PRN PRN Reason: Pain Score 1-3 /Temp>100.7 Last Admin: 04/09/19 20:37 Dose: 650 mg Documented by: Al Hydroxide/Mg Hydroxide (Mylanta Ii) 30 ml PO Q6H PRN PRN PRN Reason: Gastric Burning Aripiprazole (Abilify) 15 mg PO DAILY [facility] Last Admin: 04/10/19 08:19 Dose: 15 mg Documented by: Duloxetine HCl (Cymbalta) 60 mg PO BID [facility] Last Admin: 04/10/19 08:18 Dose: 60 mg Documented by: Ergocalciferol (Vitamin D) 50,000 unit PO [facility] Ferrous Sulfate (Ferrous Sulfate) 325 mg PO BID@1200,1700 [facility] Last Admin: 04/10/19 12:40 Dose: Not Given Documented by: Gabapentin (Neurontin) 900 mg PO QHS [facility] Last Admin: 04/09/19 20:39 Dose: 900 mg Documented by: Gabapentin (Neurontin) 600 mg PO DAILY@0800 [facility] Last Admin: 04/10/19 08:18 Dose: 600 mg Documented by: Hydralazine HCl (Apresoline Iv) 10 mg IV Q4H PRN PRN PRN Reason: SBP > 160 Hydroxyzine Pamoate (Vistaril Pamoate Capsule) 50 mg PO QHS [facility] Last Admin: 04/09/19 20:38 Dose: 50 mg Documented by: Sodium Chloride () 1,000 mls @ 15 mls/hr IV .Q48H [facility] Last Admin: 04/10/19 13:18 Dose: 15 mls/hr Documented by: Vancomycin IV Pharmacy to Dose (1 ea/ Sodium Chloride) 500 mls @ 250 mls/hr IV X1 PRN; Protocol PRN Reason: Rx to Dose Piperacillin Sod/Tazobactam (Sod 3.375 gm/ Sodium Chloride) 50 mls @ 12.5 mls/hr IV Q8 [facility] Last Admin: 04/10/19 13:18 Dose: 12.5 mls/hr Documented by: Vancomycin HCl 1,250 mg/ (Sodium Chloride) 275 mls @ 167 mls/hr IV Q12H [facility] Last Infusion: 04/10/19 04:53 Dose: Infused Documented by: Sodium Chloride () 250 mls @ 15 mls/hr IV .[id number] PRN PRN Reason: Saline Flush Last Infusion: 04/10/19 04:57 Dose: 0 mls/hr Documented by: Sodium Chloride () 250 mls @ 15 mls/hr IV .[id number] PRN PRN Reason: Additional IVPB Infusion Levothyroxine Sodium (Synthroid) 200 mcg PO DAILY@0600 [facility] Last Admin: 04/10/19 06:00 Dose: Not Given Documented by: Liothyronine Sodium (Cytomel) 5 mcg PO BID@0700,1600 [facility] Last Admin: 04/10/19 06:01 Dose: Not Given Documented by: Metoprolol Tartrate (Lopressor (Beta Mark)) 25 mg PO TID [facility] Last Admin: 04/10/19 13:01 Dose: Not Given Documented by: Morphine Sulfate () 1 - 2 mg IV Q4H PRN PRN PRN Reason: Pain Score 4-5/10 Last Admin: 04/08/19 20:21 Dose: 2 mg Documented by: Morphine Sulfate () 2 - 4 mg IV Q3H PRN PRN PRN Reason: Pain Score 6-10/10 Last Admin: 04/09/19 06:14 Dose: 2 mg Documented by: Nutritional Formula (Nic - [place] Flavor) [facility] Ondansetron HCl (Zofran) 4 mg IV Q8H PRN PRN PRN Reason: Nausea Oxycodone HCl (Oxyir) 5 mg PO Q4H PRN PRN PRN Reason: Pain Score 4-5/10 Last Admin: 04/10/19 04:50 Dose: 5 mg Documented by: Pantoprazole Sodium (Protonix) 40 mg PO DAILY [facility] Last Admin: 04/10/19 08:19 Dose: 40 mg Documented by: Sodium Chloride () 10 - 40 ml IV UD PRN PRN Reason: SALINE FLUSH Last Admin: 04/10/19 13:27 Dose: 10 ml Documented by: Medical Necessity - Tobacco Use Smoking Status: Former smoker - Patient smoked approximately 3 cigarettes/day from the age of 48 until approximately 6 years ago. Tobacco Use: Non-smoker Route of nutrition/ use of supplements: [] Nutritional Intake: [] IV Site: [] Patel Catheter: [] - Assessment/Plan Antibiotics: [] Assessment/Plan: [] Active and Suspected Problems (Last Updated 04/07/19 @ 20:[address] Navin Johnson, DPM) Osteomyelitis (Acute) R foot osteo, now s/p 5th toe amputation by Dr. Johnson 04/08/19. Wound cx with CoNS and GBS so far. No fever here. Surg cx and path pending. Cont vanc/zosyn. Will add doxy. Going for closure today. recurrent uti - symptoms improved, UA with heavy pyuria, UCx with small growth of ESBL ecoli. Abx as above. anaphylaxis with keflex - no issues with augmentin as an outpt, doing well with zosyn here Will follow, d/w billy nagel. If surg cx remains neg and no sign of ongoing infection in the OR today, ok for d/c home this weekend on 2 weeks of po doxy 100mg bid and augmentin 875mg bid with ID followup in 1-2 weeks.
[2019-04-10] MEDS: Bupivacaine Mpf 0.5% 30 ML VIAL (16:22)
--- NOTE | 2019-04-10 17:50 | OP.PCM_ITS ---
Report of Operation Date of Procedure: 04/10/19 Pre-Operative Diagnosis: open wound, right foot s/p amputation of 5th toe Post-Operative Diagnosis: same Surgery/Procedure Performed:: delayed closure of wound with rotational flap Description of Surgical Findings:: open wound with no purulence bone appears healthy without necrosis viable soft-tissue suitable for closure Type of Anesthesia:: Local MAC Specimen's removed: none Drains: none Estimated Blood Loss (mL): minimal Description of Procedure: Patient is a pleasant 58 year old female with osteomyelitis of right 5th toe who underwent amputation of 5th toe this past Saturday. The wound was left open for daily irrigation. Her wound does appear stable. Cultures and pathology from amputation site are pending. I discussed with patient proceeding with closure of wound and rotation of skin to achieve closure. I informed patient that the cultures are not yet confirmed. If patient agrees for closure and 5th metatarsal confirms presence of osteomyelitis, she will either require antibiotics at discharge or proceed with further bone resection. Patient un derstands this and consents to proceed. I discussed risks of procedure not limited to infection, pain, swelling, bleeding, slow wound healing, wound dehiscence, need for more proximal bone resection. Patient will require partial weightbearing to heel. Patient understands risk of dehiscence increases if she is found walking on foot. patient consents to procedure. Patient was transferred to operating room and placed on operating room table in supine position. She was placed under mac anesthesia and local field block was performed to right foot. the previous applied suture was removed to allow for further inspection of foot. the right foot was prepped and draped in the usual aseptic technique. Attention was directed to right foot. The wound appeared healthy with good granulation tissue. The remaining 5th metatarsal head appeared viable. No purulence was detected. Irrigation of the wound was performed with pulse lavage/normal saline. Thrombin mixed with gel foam was used to assure hemostasis. The distal incision was rotated medially and closed along the lateral aspect of 4th metatarsal and 4th proximal phalanx. The proximal incision was closed with 3-0 nylon. the wound edges came together nicely without tension. A post-op dressing was applied consisting of betadine soaked adaptic, 4x4 guaze, stefani and any. Patient was transferred to pacu in stable condition. Patient will return to floor. continue with antibiotics. Await culture finals. once cultures final, she will then be discharged. - Complications none - Admit VTE Documentation VTE Present on Admission: Yes VTE Mechan Device Prophylaxis: Thigh High CRUZ Savage
[2019-04-10] MEDS: Ferrous Sulfate 325 MG Tablet PO (18:40)
[2019-04-10] MEDS: Gabapentin 300 MG Capsule 900 MG PO (22:22)
[2019-04-10] MEDS: hydrOXYzine PAM 25 MG Capsule 50 MG PO (22:22)
[2019-04-10] MEDS: Doxycycline 100 MG CAPSULE PO (22:40)
[2019-04-11 03:48] VITALS: BP 128/72; PULSE 62; RESP 18; TEMP 36.4; O2SAT 98
[2019-04-11] MEDS: oxyCODONE 5 MG Tablet PO (03:54)
[2019-04-11 06:05] VITALS: BP 132/80; PULSE 63
[2019-04-11] MEDS: Levothyroxine 100 MCG Tablet 200 MCG PO (06:05)
[2019-04-11] MEDS: Metoprolol Tartrate 25 MG Tablet PO (06:05)
[2019-04-11 09:09] VITALS: BP 117/78; PULSE 62; RESP 18; TEMP 36.5; O2SAT 94
[2019-04-11] MEDS: Pantoprazole Sodium 40 MG Tablet PO (09:12)
[2019-04-11] MEDS: Doxycycline 100 MG CAPSULE PO (09:12)
[2019-04-11] MEDS: ARIPiprazole 5 MG Tablet 15 MG PO (09:12)
[2019-04-11] MEDS: Gabapentin 300 MG Capsule 600 MG PO (09:12)
[2019-04-11] MEDS: DULoxetine Hcl 60 MG Capsule PO (09:12)
--- NOTE | 2019-04-11 09:29 | PN_ITS ---
Patient Problems: Active and Suspected Problems (Last Updated 04/07/19 @ 20:[address] Navin Johnson, [facility]) Osteomyelitis (Acute) Subjective: She underwent delayed closure of wound with rotational flap on 04/10/2019 Objective: GENERAL: cooperative HEENT: Atraumatic; EYES; Anicteric, Normal Conjunctiva NECK; supple, normal thyroid, RESPIRATORY: Diminished to auscultation CARDIOVASCULAR: Regular S1 S2, GI: soft, normoactive bowel sounds, : No Renal angle tenderness; EXTREMITIES: Right foot in surgical dressing MUSCULOSKELETAL: no muscle waisting NEURO: Awake; no lateralizing signs. SKIN: No Rash PSYCH; Flat affect Vitals/I&O's: Vital Signs Temp Pulse Resp BP Pulse Ox 97.7 F L 62 18 117/78 94 04/11/19 09:09 04/11/19 09:09 04/11/19 09:09 04/11/19 09:09 04/11/19 09:09 Oxygen Delivery Method Room Air Weight: 97.8 kg Body Mass Index (BMI) 39.4 Intake and Output for Last 24 Hours 04/09/19 04/10/19 04/11/19 23:59 23:59 23:59 Intake Total 4853.91 / 4853.91 3087.91 / 3087.91 639.75 / 639.75 Output Total 200 / 200 Balance 4853.91 / 4853.91 2887.91 / 2887.91 639.75 / 639.75 Microbiology Past 72 Hours 04/07/19 16:55 Blood Culture (Wb) - Anticubital Right Blood Culture - Preliminary No growth in 48 hours. 04/07/19 16:50 Blood Culture (Wb) - Anticubital Left Blood Culture - Preliminary No growth in 48 hours. 04/07/19 17:40 Urine Catheter - Catheter Urine Culture - Final Presumptive E. coli 04/08/19 15:11 Other - Other Gram Stain - Final 04/08/19 15:11 Other - Other Wound Culture - Preliminary No growth-Final to follow 04/08/19 15:00 Other - Other Gram Stain - Final 04/08/19 15:00 Other - Other Wound Culture - Preliminary No growth-Final to follow 04/07/19 17:40 Wound - Toe Gram Stain - Final 04/07/19 17:40 Wound - Toe Wound Culture - Final Streptococcus agalactiae (B) Coag Negative Staph Current Medications Acetaminophen (Tylenol) 650 mg PO Q6H PRN PRN PRN Reason: Pain Score 1-3 /Temp>100.7 Last Admin: 04/09/19 20:37 Dose: 650 mg Documented by: Al Hydroxide/Mg Hydroxide (Mylanta Ii) 30 ml PO Q6H PRN PRN PRN Reason: Gastric Burning Aripiprazole (Abilify) 15 mg PO DAILY [facility] Last Admin: 04/11/19 09:12 Dose: 15 mg Documented by: Doxycycline Monohydrate (Doxycycline) 100 mg PO BID [facility] Last Admin: 04/11/19 09:12 Dose: 100 mg Documented by: Duloxetine HCl (Cymbalta) 60 mg PO BID [facility] Last Admin: 04/11/19 09:12 Dose: 60 mg Documented by: Ergocalciferol (Vitamin D) 50,000 unit PO [facility] Ferrous Sulfate (Ferrous Sulfate) 325 mg PO BID@1200,1700 [facility] Last Admin: 04/10/19 18:40 Dose: 325 mg Documented by: Gabapentin (Neurontin) 900 mg PO QHS [facility] Last Admin: 04/10/19 22:22 Dose: 900 mg Documented by: Gabapentin (Neurontin) 600 mg PO DAILY@0800 [facility] Last Admin: 04/11/19 09:12 Dose: 600 mg Documented by: Hydralazine HCl (Apresoline Iv) 10 mg IV Q4H PRN PRN PRN Reason: SBP > 160 Hydroxyzine Pamoate (Vistaril Pamoate Capsule) 50 mg PO QHS [facility] Last Admin: 04/10/19 22:22 Dose: 50 mg Documented by: Sodium Chloride () 1,000 mls @ 15 mls/hr IV .Q48H [facility] Last Infusion: 04/11/19 06:04 Dose: 0 mls/hr Documented by: Vancomycin IV Pharmacy to Dose (1 ea/ Sodium Chloride) 500 mls @ 250 mls/hr IV X1 PRN; Protocol PRN Reason: Rx to Dose Piperacillin Sod/Tazobactam (Sod 3.375 gm/ Sodium Chloride) 50 mls @ 12.5 mls/hr IV Q8 [facility] Last Admin: 04/11/19 06:04 Dose: 12.5 mls/hr Documented by: Vancomycin HCl 1,250 mg/ (Sodium Chloride) 275 mls @ 167 mls/hr IV Q12H [facility] Last Infusion: 04/11/19 05:40 Dose: Infused Documented by: Sodium Chloride () 250 mls @ 15 mls/hr IV .[id number] PRN PRN Reason: Saline Flush Last Infusion: 04/10/19 23:14 Dose: Infused Documented by: Sodium Chloride () 250 mls @ 15 mls/hr IV .[id number] PRN PRN Reason: Additional IVPB Infusion Levothyroxine Sodium (Synthroid) 200 mcg PO DAILY@0600 [facility] Last Admin: 04/11/19 06:05 Dose: 200 mcg Documented by: Liothyronine Sodium (Cytomel) 5 mcg PO BID@0700,1600 [facility] Last Admin: 04/11/19 06:04 Dose: 5 mcg Documented by: Metoprolol Tartrate (Lopressor (Beta Mark)) 25 mg PO TID [facility] Last Admin: 04/11/19 06:05 Dose: 25 mg Documented by: Morphine Sulfate () 1 - 2 mg IV Q4H PRN PRN PRN Reason: Pain Score 4-5/10 Last Admin: 04/08/19 20:21 Dose: 2 mg Documented by: Morphine Sulfate () 2 - 4 mg IV Q3H PRN PRN PRN Reason: Pain Score 6-10/10 Last Admin: 04/09/19 06:14 Dose: 2 mg Documented by: Nutritional Formula (Nic - [place] Flavor) 1 packet PO BIDCM [facility] Last Admin: 04/11/19 09:11 Dose: 1 packet Documented by: Ondansetron HCl (Zofran) 4 mg IV Q8H PRN PRN PRN Reason: Nausea Oxycodone HCl (Oxyir) 5 mg PO Q4H PRN PRN PRN Reason: Pain Score 4-5/10 Last Admin: 04/11/19 03:54 Dose: 5 mg Documented by: Pantoprazole Sodium (Protonix) 40 mg PO DAILY [facility] Last Admin: 04/11/19 09:12 Dose: 40 mg Documented by: Sodium Chloride () 10 - 40 ml IV UD PRN PRN Reason: SALINE FLUSH Last Admin: 04/10/19 13:27 Dose: 10 ml Documented by: STROKE Vital Signs/Narrative: Vital Signs Temp Pulse Resp BP Pulse Ox 04/11/19 09:09 97.7 F L 62 18 117/78 94 04/11/19 06:05 63 132/80 H Medical Necessity - Tobacco Use Smoking Status: Former smoker - Patient smoked approximately 3 cigarettes/day from the age of 48 until approximately 6 years ago. Tobacco Use: Non-smoker Assessment/Plan All Active Problems (Last Updated 04/07/19 @ 20:[address] Navin Johnson, [facility]) Severe sepsis (Acute) UTI (urinary tract infection) (Acute) Osteomyelitis (Acute) Postural orthostatic tachycardia syndrome (Acute) Gennaro's thyroiditis (Acute) Patient is a 58-year-old lady admitted with a nonhealing wound of right foot imaging studies obtained on admission demonstrated features suspicious for osteomyelitis involving the fifth proximal phalanx 1. Osteomyelitis involving the right fifth proximal phalanx in a patient with underlying nonhealing wound involving the right foot ?Patient admitted to orthopedic service started on broad-spectrum antibiotic therapy( vancomycin as well as piperacillin?tazobactam). Cultures sent will recommend obtaining consultation with infectious disease -04/09/2019; Patient underwent right fifth toe amputation on 04/08/2019 with cultures sent. Wound cultures so far positive for Streptococcus group B.consult was also placed to infectious disease. Plan is for patient to undergo wound closure on 04/10/2019. ?04/10/2019; all cultures so far positive for strep agalactiae as well as coagulase-negative staph. Antibiotic therapy deferred to ID 2. History of Gennaro thyroiditis with subsequent hypothyroidism ?Patient is on levothyroxine did continue 3. PSVT ?Currently asymptomatic symptoms controlled with metoprolol 4. History of postural orthostatic tachycardic syndrome ?On metoprolol 5. Obesity with BMI of 39.4 ?Weight loss advised 6. GERD ?Patient is on PPI 7. Recurrent UTI ?Urine cultures obtained came back positive for ESBL E. coli. ID on board will defer subsequent antibiotic management 8. DVT prophylaxis ?Would recommend Lovenox if no contraindication Microbiology 04/07/19 16:55 Blood Culture (Wb) - Anticubital Right Blood Culture - Preliminary No growth in 48 hours. 04/07/19 16:50 Blood Culture (Wb) - Anticubital Left Blood Culture - Preliminary No growth in 48 hours. 04/07/19 17:40 Urine Catheter - Catheter Urine Culture - Final Presumptive E. coli 04/08/19 15:11 Other - Other Gram Stain - Final 04/08/19 15:11 Other - Other Wound Culture - Preliminary No growth-Final to follow 04/08/19 15:00 Other - Other Gram Stain - Final 04/08/19 15:00 Other - Other Wound Culture - Preliminary No growth-Final to follow 04/07/19 17:40 Wound - Toe Gram Stain - Final 04/07/19 17:40 Wound - Toe Wound Culture - Final Streptococcus agalactiae (B) Coag Negative Staph Code Visit Inpatient E&M: 49326 Subs Hosp L2
--- NOTE | 2019-04-11 09:39 | PN.SURG_ITS ---
Patient Problems: Active and Suspected Problems (Last Updated 04/07/19 @ 20:[address] Navin Johnson, [facility]) Osteomyelitis (Acute) Subjective: patient seen at bedside this am. patient denies n/v/f/c. patient states her pain is 2/10 and is tolerable. Objective: Patient is alert and orientated x 3. she does not appear in any distress. vascular: DP and PT pulses palpable to right foot. mild swelling is present to right foot but no calf pain. no erythema is present. Derm: surgical incision is nicely approximated to right foot. there is no dehiscence. there is no erythema or drainage. there is no local signs of infection. m/s: s/p amputation of right 5th toe. no calf pain present. - Physical Exam Vitals/I&O's: Vital Signs Temp Pulse Resp BP Pulse Ox 97.7 F L 62 18 117/78 94 04/11/19 09:09 04/11/19 09:09 04/11/19 09:09 04/11/19 09:09 04/11/19 09:09 Oxygen Delivery Method Room Air Weight: 97.8 kg Body Mass Index (BMI) 39.4 Intake and Output for Last 24 Hours 04/09/19 04/10/19 04/11/19 23:59 23:59 23:59 Intake Total 4853.91 / 4853.91 3087.91 / 3087.91 639.75 / 639.75 Output Total 200 / 200 Balance 4853.91 / 4853.91 2887.91 / 2887.91 639.75 / 639.75 Microbiology Past 72 Hours 04/07/19 16:55 Blood Culture (Wb) - Anticubital Right Blood Culture - Preliminary No growth in 48 hours. 04/07/19 16:50 Blood Culture (Wb) - Anticubital Left Blood Culture - Pr eliminary No growth in 48 hours. 04/07/19 17:40 Urine Catheter - Catheter Urine Culture - Final Presumptive E. coli 04/08/19 15:11 Other - Other Gram Stain - Final 04/08/19 15:11 Other - Other Wound Culture - Preliminary No growth-Final to follow 04/08/19 15:00 Other - Other Gram Stain - Final 04/08/19 15:00 Other - Other Wound Culture - Preliminary No growth-Final to follow 04/07/19 17:40 Wound - Toe Gram Stain - Final 04/07/19 17:40 Wound - Toe Wound Culture - Final Streptococcus agalactiae (B) Coag Negative Staph Current Medications Acetaminophen (Tylenol) 650 mg PO Q6H PRN PRN PRN Reason: Pain Score 1-3 /Temp>100.7 Last Admin: 04/09/19 20:37 Dose: 650 mg Documented by: Al Hydroxide/Mg Hydroxide (Mylanta Ii) 30 ml PO Q6H PRN PRN PRN Reason: Gastric Burning Aripiprazole (Abilify) 15 mg PO DAILY [facility] Last Admin: 04/11/19 09:12 Dose: 15 mg Documented by: Doxycycline Monohydrate (Doxycycline) 100 mg PO BID [facility] Last Admin: 04/11/19 09:12 Dose: 100 mg Documented by: Duloxetine HCl (Cymbalta) 60 mg PO BID [facility] Last Admin: 04/11/19 09:12 Dose: 60 mg Documented by: Ergocalciferol (Vitamin D) 50,000 unit PO [facility] Ferrous Sulfate (Ferrous Sulfate) 325 mg PO BID@1200,1700 [facility] Last Admin: 04/10/19 18:40 Dose: 325 mg Documented by: Gabapentin (Neurontin) 900 mg PO QHS [facility] Last Admin: 04/10/19 22:22 Dose: 900 mg Documented by: Gabapentin (Neurontin) 600 mg PO DAILY@0800 [facility] Last Admin: 04/11/19 09:12 Dose: 600 mg Documented by: Hydralazine HCl (Apresoline Iv) 10 mg IV Q4H PRN PRN PRN Reason: SBP > 160 Hydroxyzine Pamoate (Vistaril Pamoate Capsule) 50 mg PO QHS [facility] Last Admin: 04/10/19 22:22 Dose: 50 mg Documented by: Sodium Chloride () 1,000 mls @ 15 mls/hr IV .Q48H [facility] Last Infusion: 04/11/19 06:04 Dose: 0 mls/hr Documented by: Vancomycin IV Pharmacy to Dose (1 ea/ Sodium Chloride) 500 mls @ 250 mls/hr IV X1 PRN; Protocol PRN Reason: Rx to Dose Piperacillin Sod/Tazobactam (Sod 3.375 gm/ Sodium Chloride) 50 mls @ 12.5 mls/hr IV Q8 [facility] Last Admin: 04/11/19 06:04 Dose: 12.5 mls/hr Documented by: Vancomycin HCl 1,250 mg/ (Sodium Chloride) 275 mls @ 167 mls/hr IV Q12H [facility] Last Infusion: 04/11/19 05:40 Dose: Infused Documented by: Sodium Chloride () 250 mls @ 15 mls/hr IV .[id number] PRN PRN Reason: Saline Flush Last Infusion: 04/10/19 23:14 Dose: Infused Documented by: Sodium Chloride () 250 mls @ 15 mls/hr IV .[id number] PRN PRN Reason: Additional IVPB Infusion Levothyroxine Sodium (Synthroid) 200 mcg PO DAILY@0600 [facility] Last Admin: 04/11/19 06:05 Dose: 200 mcg Documented by: Liothyronine Sodium (Cytomel) 5 mcg PO BID@0700,1600 [facility] Last Admin: 04/11/19 06:04 Dose: 5 mcg Documented by: Metoprolol Tartrate (Lopressor (Beta Mark)) 25 mg PO TID [facility] Last Admin: 04/11/19 06:05 Dose: 25 mg Documented by: Morphine Sulfate () 1 - 2 mg IV Q4H PRN PRN PRN Reason: Pain Score 4-5/10 Last Admin: 04/08/19 20:21 Dose: 2 mg Documented by: Morphine Sulfate () 2 - 4 mg IV Q3H PRN PRN PRN Reason: Pain Score 6-10/10 Last Admin: 04/09/19 06:14 Dose: 2 mg Documented by: Nutritional Formula (Nic - [place] Flavor) 1 packet PO BIDCM [facility] Last Admin: 04/11/19 09:11 Dose: 1 packet Documented by: Ondansetron HCl (Zofran) 4 mg IV Q8H PRN PRN PRN Reason: Nausea Oxycodone HCl (Oxyir) 5 mg PO Q4H PRN PRN PRN Reason: Pain Score 4-5/10 Last Admin: 04/11/19 03:54 Dose: 5 mg Documented by: Pantoprazole Sodium (Protonix) 40 mg PO DAILY [facility] Last Admin: 04/11/19 09:12 Dose: 40 mg Documented by: Sodium Chloride () 10 - 40 ml IV UD PRN PRN Reason: SALINE FLUSH Last Admin: 04/10/19 13:27 Dose: 10 ml Documented by: Medical Necessity - Tobacco Use Smoking Status: Former smoker - Patient smoked approximately 3 cigarettes/day from the age of 48 until approximately 6 years ago. Tobacco Use: Non-smoker Assessment/Plan All Active Problems (Last Updated 04/07/19 @ 20:[address] Navin Johnson, [facility]) Severe sepsis (Acute) UTI (urinary tract infection) (Acute) Osteomyelitis (Acute) Postural orthostatic tachycardia syndrome (Acute) Gennaro's thyroiditis (Acute) Patient was examined and informed of current findings. Dressing change was applied to right foot today consisting of betadine soaked adaptic, 4x4 guaze, stefani and any. her foot appears stable without infection. wound edges appear viable without necrosis. cultures are still pending from bone but show no growth at 48 hours. wound cultures growing strep and ecoli. I had long discussion with patient. I want patient to remain partial weightbearing to right heel with use of walker. We will consult physical therapy to assist in education of partial weightbearing. I am ok with patient discharge today if antibiotics arranged. ID has recommended augmentin and doxycycline x 2 weeks. I will facilitate office visit next week. I will have her come in on Saturday or saturday. If patient is able to come in on saturday, will not need home care. If patient unable to come in on Saturday, i will facilitate home care. Dressings to right foot will consist of betadine, 4x4 guaze and stefani/any changed every other day. Discharge medications will be augmentin po bid x 2 weeks doxycycline po bid x 2 weeks percocet 5/325 x 1 q 6 hours for pain
--- NOTE | 2019-04-11 09:48 | DCINST_ITS ---
Discharge Activity: May Shower - but keep dressing clean and dry. do not get wet., Use Walker - partial weightbearing with post-op shoe to right heel Weight Bearing Status: Partial weight bearing - heel with walker Keep extremity elevated above heart level: Right Leg Call your doctor if your incision/area has: Sudden Increased Bleeding, Increased Pain/ Swelling, Increased Redness, Foul Smelling Discharge Call your doctor if you observe: Fever of 101 or Higher, Coldness, Increased Pain, Shortness of breath, Chest pain Cleanse incision/area with: Do not get Incision Wet Allergies/Adverse Reactions: Allergies atropine sulfate [From ] Allergy (Verified 04/07/19 15:45) Anaphylaxis Cephalosporins Allergy (Verified 04/07/19 15:45) Anaphylaxis fluoxetine Allergy (Verified 04/07/19 15:45) Hives hyoscyamine sulfate [From ] Allergy (Verified 04/07/19 15:45) Anaphylaxis phenobarbital [From ] Allergy (Verified 04/07/19 15:45) Anaphylaxis scopolamine hydrobromide [From ] Allergy (Verified 04/07/19 15:45) Anaphylaxis divalproex sodium [From Depakote] Adverse Reaction (Verified 04/07/19 15:45) Other INSECT BITES Allergy (Uncoded 04/07/19 15:45) Swelling Medications to take at Discharge Aripiprazole 15 mg PO DAILY 10/16/18 Duloxetine Hcl [Cymbalta] 60 mg PO BID 10/16/18 Ergocalciferol (Vitamin D2) [Vitamin D2] 50,000 unit PO ADAN 10/16/18 Ferrous Sulfate 325 mg PO BID 10/16/18 Gabapentin [Neurontin] 600 mg PO DAILY 10/16/18 Gabapentin [Neurontin] 900 mg PO QHS 10/16/18 Levothyroxine Sodium 200 mcg PO DAILY 10/16/18 Liothyronine Sodium [Cytomel] 5 mcg PO BID 10/16/18 Meloxicam [Mobic] 15 mg PO DAILY 10/16/18 Metoprolol Tartrate 25 mg PO TID 10/16/18 Pantoprazole Sodium [Protonix] 40 mg PO DAILY 10/16/18 Hydroxyzine HCl 50 mg PO QHS 04/07/19 Primary Care Physician: Cong Dumont MD [Primary Care Provider] - Test Results: Test results from this visit will be discussed in further detail at your follow- up appointment, if applicable. Please Follow Up With: Navin Johnson DPM - on saturday or saturday
--- NOTE | 2019-04-11 10:08 | DCINST_ITS ---
- Discharge Diagnoses Current Active Problems: Current Active and Chronic Problems (Last Updated 04/07/19 @ 20:[address] Navin Johnson, [facility]) Osteomyelitis (Acute) Anxiety and depression (Chronic) Bipolar disorder (Chronic) Obesity (BMI 30-39.9) (Chronic) History of Gennaro thyroiditis (Chronic) Postural orthostatic tachycardia syndrome (Chronic) You will use the following diet at home:: No restrictions Discharge Activity: May Shower - but keep dressing clean and dry. do not get wet., Use Walker - partial weightbearing with post-op shoe to right heel Weight Bearing Status: Partial weight bearing - heel with walker Keep extremity elevated above heart level: Right Leg Call your doctor if your incision/area has: Sudden Increased Bleeding, Increased Pain/ Swelling, Increased Redness, Foul Smelling Discharge Call your doctor if you observe: Fever of 101 or Higher, Coldness, Increased Pain, Shortness of breath, Chest pain Cleanse incision/area with: Do not get Incision Wet Allergies/Adverse Reactions: Allergies atropine sulfate [From ] Allergy (Verified 04/07/19 15:45) Anaphylaxis Cephalosporins Allergy (Verified 04/07/19 15:45) Anaphylaxis fluoxetine Allergy (Verified 04/07/19 15:45) Hives hyoscyamine sulfate [From ] Allergy (Verified 04/07/19 15:45) Anaphylaxis phenobarbital [From ] Allergy (Verified 04/07/19 15:45) Anaphylaxis scopolamine hydrobromide [From ] Allergy (Verified 04/07/19 15:45) Anaphylaxis divalproex sodium [From Depakote] Adverse Reaction (Verified 04/07/19 15:45) Other INSECT BITES Allergy (Uncoded 04/07/19 15:45) Swelling Medications to take at Discharge Aripiprazole 15 mg PO DAILY 10/16/18 Duloxetine Hcl [Cymbalta] 60 mg PO BID 10/16/18 Ergocalciferol (Vitamin D2) [Vitamin D2] 50,000 unit PO ADAN 10/16/18 Ferrous Sulfate 325 mg PO BID 10/16/18 Gabapentin [Neurontin] 600 mg PO DAILY 10/16/18 Gabapentin [Neurontin] 900 mg PO QHS 10/16/18 Levothyroxine Sodium 200 mcg PO DAILY 10/16/18 Liothyronine Sodium [Cytomel] 5 mcg PO BID 10/16/18 Meloxicam [Mobic] 15 mg PO DAILY 10/16/18 Metoprolol Tartrate 25 mg PO TID 10/16/18 Pantoprazole Sodium [Protonix] 40 mg PO DAILY 10/16/18 Hydroxyzine HCl 50 mg PO QHS 04/07/19 Amoxicillin/Potassium Clav [Augmentin 875-125 Tablet] 1 ea PO BID #28 tab 04/11/19 Doxycycline 100 mg PO BID #28 cap 04/11/19 The following prescriptions were given: Amoxicillin/Potassium Clav [Augmentin 875-125 Tablet] 1 ea PO BID #28 tab Transmission Status: Pending to [facility]/pharmacy #[id number] Doxycycline 100 mg PO BID #28 cap Transmission Status: Pending to [facility]/pharmacy #[id number] Primary Care Physician: Cong Dumont MD [Primary Care Provider] - Please follow up with your Primary Care Physician in: [place] 5-7 DAYS Test Results: Test results from this visit will be discussed in further detail at your follow- up appointment, if applicable. Please Follow Up With: Navin Johnson DPM - on saturday or saturday Please Follow Up With: Eb Ortiz MD When: [place] 1-2 WEEKS Proposed Discharge Date: 04/11/19
--- NOTE | 2019-04-11 10:10 | PCM.DC.SUM ---
Discharge Date and Diagnosis - Problem List Patient Problems: Active and Suspected Problems (Last Updated 04/07/19 @ 20:[address] Navin Johnson DPM) Osteomyelitis (Acute) Date of Admission: 04/07/19 Date of Discharge: 04/11/19 - Primary Discharge Diagnosis Active and Suspected Problems (Last Updated 04/07/19 @ 20:[address] Navin Johnson DPM) Osteomyelitis (Acute) - Secondary Discharge Diagnosis Chronic Problems (Last Updated 04/07/19 @ 20:[address] Navin Johnson DPM) Anxiety and depression (Chronic) Bipolar disorder (Chronic) Obesity (BMI 30-39.9) (Chronic) History of Gennaro thyroiditis (Chronic) Postural orthostatic tachycardia syndrome (Chronic) Hospital Course and Treatment Imaging Results: Clinical Impression(s) from Imaging Studies Foot X-Ray 04/07/19 16:50 IMPRESSION: Suspect osteomyelitis of the fifth proximal phalanx. Electronically Signed: Osmin Dumont MD at 17:05 EST Tel , Service support , Lower Extremity MRI 04/08/19 09:15 IMPRESSION: Cellulitis of the fifth digit without abscess but with osteomyelitis of the fifth proximal phalanx per Electronically Signed: Osmin Dumont MD at 11:17 EST Tel , Service support , Toe X-Ray 04/08/19 13:25 IMPRESSION: Status post fifth toe amputation. Electronically Signed: Tylor Malagon MD at 17:04 EST , Service support , Foot X-Ray 04/08/19 16:20 IMPRESSION: Interval amputation of the fifth digit. Electronically Signed: Osmin Dumont MD at 16:51 EST Tel , Service support , Microbiology 04/08/19 15:11 Other - Other Gram Stain - Final 04/08/19 15:11 Other - Other Wound Culture - Final No growth aerobically. 04/08/19 15:00 Other - Other Gram Stain - Final 04/08/19 15:00 Other - Other Wound Culture - Preliminary Beta streptococcus 04/07/19 16:55 Blood Culture (Wb) - Anticubital Right Blood Culture - Preliminary No growth in 48 hours. 04/07/19 16:50 Blood Culture (Wb) - Anticubital Left Blood Culture - Preliminary No growth in 48 hours. 04/07/19 17:40 Urine Catheter - Catheter Urine Culture - Final Presumptive E. coli 04/07/19 17:40 Wound - Toe Gram Stain - Final 04/07/19 17:40 Wound - Toe Wound Culture - Final Streptococcus agalactiae (B) Coag Negative Staph Consultations 04/07/19 18:36 Consult: Onc/Wound/rfid developer Routine Comment: Operations: None Summary of Care Provided: Patient is a 58-year-old lady admitted with a nonhealing wound of right foot imaging studies obtained on admission demonstrated features suspicious for osteomyelitis involving the fifth proximal phalanx 1. Osteomyelitis involving the right fifth proximal phalanx in a patient with underlying nonhealing wound involving the right foot ?Patient admitted to orthopedic service started on broad-spectrum antibiotic therapy( vancomycin as well as piperacillin?tazobactam). Cultures sent will recommend obtaining consultation with infectious disease -04/09/2019; Patient underwent right fifth toe amputation on 04/08/2019 with cultures sent. Wound cultures so far positive for Streptococcus group B.consult was also placed to infectious disease. Plan is for patient to undergo wound closure on 04/10/2019. ?04/10/2019; all cultures so far positive for strep agalactiae as well as coagulase-negative staph. Antibiotic therapy deferred to ID -04/11/2019 patient was seen by Dr. Ortiz who recommended for patient to be discharged home on doxycycline and Augmentin for 2 weeks with follow-up with him in the office. Patient was deemed stable for discharge 2. History of Gennaro thyroiditis with subsequent hypothyroidism ?Patient is on levothyroxine did continue 3. PSVT ?Currently asymptomatic symptoms controlled with metoprolol 4. History of postural orthostatic tachycardic syndrome ?On metoprolol 5. Obesity with BMI of 39.4 ?Weight loss advised 6. GERD ?Patient is on PPI 7. Recurrent UTI ?Urine cultures obtained came back positive for ESBL E. coli. ID on board will defer subsequent antibiotic management Patient Problems: Active and Suspected Problems (Last Updated 04/07/19 @ 20:[address] Navin Johnson, DP) Osteomyelitis (Acute) - Physical Exam Vitals/I&O's: Vital Signs Temp Pulse Resp BP Pulse Ox 97.7 F L 62 18 117/78 94 04/11/19 09:09 04/11/19 09:09 04/11/19 09:09 04/11/19 09:09 04/11/19 09:09 Oxygen Delivery Method Room Air Weight: 97.8 kg Body Mass Index (BMI) 39.4 Intake and Output for Last 24 Hours 04/09/19 04/10/19 04/11/19 23:59 23:59 23:59 Intake Total 4853.91 / 4853.91 3087.91 / 3087.91 689.75 / 689.75 Output Total 200 / 200 Balance 4853.91 / 4853.91 2887.91 / 2887.91 689.75 / 689.75 General: Alert HEENT: Atraumatic Neck: Supple Lungs: Normal air movement Cardiovascular: Regular rate, Regular Rhythm Psych/Mental Status: Normal Affect Microbiology Past 72 Hours 04/08/19 15:11 Other - Other Gram Stain - Final 04/08/19 15:11 Other - Other Wound Culture - Final No growth aerobically. 04/08/19 15:00 Other - Other Gram Stain - Final 04/08/19 15:00 Other - Other Wound Culture - Preliminary Beta streptococcus 04/07/19 16:55 Blood Culture (Wb) - Anticubital Right Blood Culture - Preliminary No growth in 48 hours. 04/07/19 16:50 Blood Culture (Wb) - Anticubital Left Blood Culture - Preliminary No growth in 48 hours. 04/07/19 17:40 Urine Catheter - Catheter Urine Culture - Final Presumptive E. coli 04/07/19 17:40 Wound - Toe Gram Stain - Final 04/07/19 17:40 Wound - Toe Wound Culture - Final Streptococcus agalactiae (B) Coag Negative Staph Current Medications Acetaminophen (Tylenol) 650 mg PO Q6H PRN PRN PRN Reason: Pain Score 1-3 /Temp>100.7 Last Admin: 04/09/19 20:37 Dose: 650 mg Documented by: Al Hydroxide/Mg Hydroxide (Mylanta Ii) 30 ml PO Q6H PRN PRN PRN Reason: Gastric Burning Aripiprazole (Abilify) 15 mg PO DAILY [facility] Last Admin: 04/11/19 09:12 Dose: 15 mg Documented by: Doxycycline Monohydrate (Doxycycline) 100 mg PO BID [facility] Last Admin: 04/11/19 09:12 Dose: 100 mg Documented by: Duloxetine HCl (Cymbalta) 60 mg PO BID [facility] Last Admin: 04/11/19 09:12 Dose: 60 mg Documented by: Ergocalciferol (Vitamin D) 50,000 unit PO [facility] Ferrous Sulfate (Ferrous Sulfate) 325 mg PO BID@1200,1700 [facility] Last Admin: 04/10/19 18:40 Dose: 325 mg Documented by: Gabapentin (Neurontin) 900 mg PO QHS [facility] Last Admin: 04/10/19 22:22 Dose: 900 mg Documented by: Gabapentin (Neurontin) 600 mg PO DAILY@0800 [facility] Last Admin: 04/11/19 09:12 Dose: 600 mg Documented by: Hydralazine HCl (Apresoline Iv) 10 mg IV Q4H PRN PRN PRN Reason: SBP > 160 Hydroxyzine Pamoate (Vistaril Pamoate Capsule) 50 mg PO QHS [facility] Last Admin: 04/10/19 22:22 Dose: 50 mg Documented by: Sodium Chloride () 1,000 mls @ 15 mls/hr IV .Q48H [facility] Last Infusion: 04/11/19 06:04 Dose: 0 mls/hr Documented by: Vancomycin IV Pharmacy to Dose (1 ea/ Sodium Chloride) 500 mls @ 250 mls/hr IV X1 PRN; Protocol PRN Reason: Rx to Dose Piperacillin Sod/Tazobactam (Sod 3.375 gm/ Sodium Chloride) 50 mls @ 12.5 mls/hr IV Q8 [facility] Last Infusion: 04/11/19 10:08 Dose: Infused Documented by: Vancomycin HCl 1,250 mg/ (Sodium Chloride) 275 mls @ 167 mls/hr IV Q12H [facility] Last Infusion: 04/11/19 05:40 Dose: Infused Documented by: Sodium Chloride () 250 mls @ 15 mls/hr IV .[id number] PRN PRN Reason: Saline Flush Last Infusion: 04/10/19 23:14 Dose: Infused Documented by: Sodium Chloride () 250 mls @ 15 mls/hr IV .[id number] PRN PRN Reason: Additional IVPB Infusion Levothyroxine Sodium (Synthroid) 200 mcg PO DAILY@0600 [facility] Last Admin: 04/11/19 06:05 Dose: 200 mcg Documented by: Liothyronine Sodium (Cytomel) 5 mcg PO BID@0700,1600 [facility] Last Admin: 04/11/19 06:04 Dose: 5 mcg Documented by: Metoprolol Tartrate (Lopressor (Beta Mark)) 25 mg PO TID [facility] Last Admin: 04/11/19 06:05 Dose: 25 mg Documented by: Morphine Sulfate () 1 - 2 mg IV Q4H PRN PRN PRN Reason: Pain Score 4-5/10 Last Admin: 04/08/19 20:21 Dose: 2 mg Documented by: Morphine Sulfate () 2 - 4 mg IV Q3H PRN PRN PRN Reason: Pain Score 6-10/10 Last Admin: 04/09/19 06:14 Dose: 2 mg Documented by: Nutritional Formula (Nic - [place] Flavor) [facility] Last Admin: 04/11/19 09:11 Dose: 1 packet Documented by: Ondansetron HCl (Zofran) 4 mg IV Q8H PRN PRN PRN Reason: Nausea Oxycodone HCl (Oxyir) 5 mg PO Q4H PRN PRN PRN Reason: Pain Score 4-5/10 Last Admin: 04/11/19 03:54 Dose: 5 mg Documented by: Pantoprazole Sodium (Protonix) 40 mg PO DAILY [facility] Last Admin: 04/11/19 09:12 Dose: 40 mg Documented by: Sodium Chloride () 10 - 40 ml IV UD PRN PRN Reason: SALINE FLUSH Last Admin: 04/10/19 13:27 Dose: 10 ml Documented by: Discharge Diet: No Restrictions Discharge Activity: May Shower - but keep dressing clean and dry. do not get wet., Use Walker - partial weightbearing with post-op shoe to right heel Weight Bearing Status: Partial weight bearing - heel with walker Keep extremity elevated above heart level: Right Leg Call your doctor if your incision/area has: Sudden Increased Bleeding, Increased Pain/ Swelling, Increased Redness, Foul Smelling Discharge Call your doctor if you observe: Fever of 101 or Higher, Coldness, Increased Pain, Shortness of breath, Chest pain Cleanse incision/area with: Do not get Incision Wet Home Medications: Medications to take at Discharge Aripiprazole 15 mg PO DAILY 10/16/18 Duloxetine Hcl [Cymbalta] 60 mg PO BID 10/16/18 Ergocalciferol (Vitamin D2) [Vitamin D2] 50,000 unit PO ADAN 10/16/18 Ferrous Sulfate 325 mg PO BID 10/16/18 Gabapentin [Neurontin] 600 mg PO DAILY 10/16/18 Gabapentin [Neurontin] 900 mg PO QHS 10/16/18 Levothyroxine Sodium 200 mcg PO DAILY 10/16/18 Liothyronine Sodium [Cytomel] 5 mcg PO BID 10/16/18 Meloxicam [Mobic] 15 mg PO DAILY 10/16/18 Metoprolol Tartrate 25 mg PO TID 10/16/18 Pantoprazole Sodium [Protonix] 40 mg PO DAILY 10/16/18 Hydroxyzine HCl 50 mg PO QHS 04/07/19 Amoxicillin/Potassium Clav [Augmentin 875-125 Tablet] 1 ea PO BID #28 tab 04/11/19 Doxycycline 100 mg PO BID #28 cap 04/11/19 Following Prescrptions Were Given to Patient: Amoxicillin/Potassium Clav [Augmentin 875-125 Tablet] 1 ea PO BID #28 tab Transmission Status: Pending to [facility]/pharmacy #[id number] Doxycycline 100 mg PO BID #28 cap Transmission Status: Pending to [facility]/pharmacy #[id number] Primary Care Physician: Cong Dumont MD [Primary Care Provider] - Please follow up with your Primary Care Physician in: IN 5-7 DAYS Please Follow Up With: Navin Johnson DPM - on saturday or saturday Please Follow Up With: Eb Ortiz MD When: IN 1-2 WEEKS Disposition: Home with Home Health Minutes spent on discharge:: 45 Patient Condition:: Stable Medical Necessity - Tobacco Use Smoking Status: Former smoker - Patient smoked approximately 3 cigarettes/day from the age of 48 until approximately 6 years ago. Tobacco Use: Non-smoker Meaningful Use Info Meaningful Use Diagnoses (Choose all that apply): None applicable Code Visit Inpatient E&M: 49999 Disch Hosp
[2019-04-11] MEDS: Ferrous Sulfate 325 MG Tablet PO (11:16)
== END 2019-04-11 13:45 | disposition home or self-care (01) | DRG 314 ==
LOC: ED 17:44 → MS3 18:33
PROVIDERS: Anesthesiology; Family Medicine; Admitting Provider Podiatrist Foot & Ankle Surgery; Emergency Provider Emergency Medicine; PCP Family Medicine; Visit Provider Podiatrist Foot & Ankle Surgery
PROC: 0Y6X0Z1 Detachment at Right 5th Toe, High, Open Approach (ICD-10-PCS; principal; 2019-04-08 07:15)
PROC: 0YQMXZZ Repair Right Foot, External Approach (ICD-10-PCS; principal; 2019-04-10 15:15)
DX: M86.171 Other acute osteomyelitis, right ankle and foot (principal); F31.9 Bipolar disorder, unspecified; F41.9 Anxiety disorder, unspecified; E66.9 Obesity, unspecified; E06.3 Autoimmune thyroiditis; I49.8 Other specified cardiac arrhythmias; Z79.899 Other long term (current) drug therapy; Z79.1 Long term (current) use of non-steroidal anti-inflammatories (NSAID); Z87.891 Personal history of nicotine dependence; Z68.39 Body mass index [BMI] 39.0-39.9, adult; K21.9 Gastro-esophageal reflux disease without esophagitis; D50.9 Iron deficiency anemia, unspecified; K52.9 Noninfective gastroenteritis and colitis, unspecified; I10 Essential (primary) hypertension; N39.0 Urinary tract infection, site not specified; Z87.440 Personal history of urinary (tract) infections; B96.20 Unspecified Escherichia coli [E. coli] as the cause of diseases classified elsewhere; Z16.12 Extended spectrum beta lactamase (ESBL) resistance; B95.1 Streptococcus, group B, as the cause of diseases classified elsewhere
CPT/HCPCS: 36415; 73630; 73660; 73720; 76000; 80048; 80053; 80202; 81001; 83036; 83605; 83735; 84443; 85025; 85610; 85652; 85730; 86140; 87015; 87040; 87070; 87075; 87077; 87086; 87088; 87102; 87116; 87186; 87205; 87206; 87640; 88304; 88311; 93005; 93922; 97162; 99284; A9575; J7030; J7040; J7050; A4216

== ENCOUNTER → 2021-05-09 20:00 | Outpatient (CLI) | payer MEDICAID, SELFPAY | PROVIDERS: PCP Family Medicine | DX: G47.19 Other hypersomnia (principal); G47.33 Obstructive sleep apnea (adult) (pediatric) | CPT/HCPCS: 95811 ==

== ENCOUNTER → 2021-06-22 | Outpatient (CLI) | payer MEDICAID, SELFPAY ==
--- NOTE | 2021-06-22 15:22 | CT_ITS ---
STUDY: CT ABDOMEN AND PELVIS WITH AND WITHOUT CONTRAST REASON FOR EXAM: Female, 61 years old. GROSS HEMATURIA RADIATION DOSAGE (If Supplied By Facility): CTDIvol = ( 28.61 ) mGy, DLP = ( 4700.94 ) mGycm TECHNIQUE: Transaxial images were obtained from the dome of the diaphragm to the symphysis pubis without oral contrast. 100 CC ISOVUE 370 was administered. Sagittal and coronal images were reconstructed. Individualized dose optimization techniques were used for this CT. COMPARISON: None. FINDINGS: The visualized lung bases are unremarkable. The visualized portions of the heart are within normal limits. There is decreased attenuation of the liver consistent with steatosis. There are surgical clips in the gallbladder fossa consistent with a prior cholecystectomy. Normal spleen. Normal pancreas. Normal bilateral adrenal glands. Normal right kidney. 2 mm nonobstructive calculus in the upper pole calyx of the left kidney. There is a small hiatal hernia. Normal small intestine. There are scattered colonic diverticula consistent with diverticulosis. The appendix is visualized and appears normal. Normal abdominal aorta. Normal inferior vena cava. There is borderline retroperitoneal lymphadenopathy with enlarged nodes no greater than 10mm in the short axis diameter. Normal urinary bladder. Surgical clips are seen in the region of the left ovary. Normal abdominal wall. There are degenerative changes of the visualized lumbar spine. CT/CT Abd/Pelvis W/WO Contrast IMPRESSION: Punctate nonobstructive calculus in the upper pole calyx of the left kidney. Electronically Signed: Ronak Cage MD at 9:05 EDT ,
[2021-06-22 15:55] LABS: CREATININE FINGERSTICK < 0.9 mg/dL (0.55-1.02); EGFR FINGERSTICK > 60.0000 mL/min (>60)
== END | disposition home or self-care (01) ==
LOC: CT 15:21
PROVIDERS: PCP Family Medicine; Visit Provider Urology
DX: R31.0 Gross hematuria (principal)
CPT/HCPCS: 74178; Q9967

== ENCOUNTER → 2021-08-24 | Outpatient (CLI) | payer MEDICAID, SELFPAY ==
--- NOTE | 2021-08-24 14:20 | US_ITS ---
STUDY: ULTRASOUND OF THE FEMALE PELVIS - COMPLETE REASON FOR EXAM: Female, 61 years old. abnl bleeding LMP: Patient is postmenopausal. TECHNIQUE: Transabdominal TECHNICAL QUALITY: Adequate. COMPARISON: None. FINDINGS: The uterus is anteverted and is in a midline position. The uterus measures 6.6 cm x 4.3 cm x 2.8 cm. Normal uterine cervix. The endometrium measures 2.3 mm in thickness, and is . There is no demonstrated endometrial mass. There is no demonstrated myometrial mass. I.U.D. - The patient does not have an I.U.D. The right ovary is visualized. The right ovary measures 2.3 cm x 2.4 cm x 1.8 cm. There is no right ovarian cyst or ovarian mass. There is no visualized right adnexal mass or complex lesion. There is normal arterial and normal venous vascularity. The left ovary is non-visualized. There is no fluid in the cul-de-sac. The pre void volume of the bladder was 55 ml. US/Pelvic (Non ) IMPRESSION: Minimally thickened endometrium. Electronically Signed: Ronak Cage MD at 10:03 EDT ,
== END | disposition home or self-care (01) ==
LOC: US 14:19
PROVIDERS: PCP Family Medicine; Referring Provider Urology; Visit Provider Urology
DX: N93.9 Abnormal uterine and vaginal bleeding, unspecified (principal)
CPT/HCPCS: 76856

== ENCOUNTER → 2021-09-28 | Outpatient (CLI) | payer MEDICAID, SELFPAY ==
--- NOTE | 2021-09-28 10:45 | TISS_PTH ---
PATIENT: EMILIA ANG LOC: [facility] U#:[id number] AGE/SX: 61/F ROOM: RE09/28/[address]: Dr. Rebecca De Jesus DO : 1960 BED: DIS: 09/28/2021 SPEC #: [id number] RECD: 09/28/21 17:20 STATUS: VANESSA VANCEAnthony #: [id number] ABBY: 09/28/21 10:[address]: Rebecca De Jesus DEPT: SURGICAL PATHOLOGY RECD BY: Hilda Hazel ENTERED: 09/29/21 08:15 SP TYPE: Tissue Bx YURIY DR: Dr. Cong Dumont MD Tissues: TISSUE SURGICALLY REMOVED Procedures: Surgery Specimen Level III HEADER OPERATION: Skin tag removal PRE-OP DIAGNOSIS: Skin tag TISSUE SUBMITTED: Skin tag, thigh MICROSCOPIC DIAGNOSIS Skin tag thigh, biopsy: A fibroepithelial polyp (skin tag). SJ:wesley 10/02/2021 MICROSCOPIC DESCRIPTION Slides are reviewed. GROSS DESCRIPTION Received in fixative is one container labeled with the patient's name and designated skin tag. The specimen consists of a piece of wilson-white skin measuring 0.4 x 0.2 x 0.1 cm. The specimen is totally submitted in one cassette. / HIRA:wesley 09/29/2021 TC:5 [facility]: [id number]
[2021-10-04 13:13] LABS: HPV APTIMA, High Risk Negative (Negative)
== END | disposition home or self-care (01) ==
PROVIDERS: PCP Family Medicine; Visit Provider Obstetrics & Gynecology
DX: L91.8 Other hypertrophic disorders of the skin (principal)
CPT/HCPCS: 88305; 87624; 88175; 88304; G0145

== ENCOUNTER → 2022-01-18 | Outpatient (CLI) | payer MEDICAID, SELFPAY ==
[2022-01-25 08:49] LABS: Hematocrit 44.7 % (37-47); Hemoglobin 14.8 g/dL (12.0-15.0); Mean Corp Hgb Conc 33.1 g/dL (32-36); Mean Corpuscular Hgb 29.1 pg (27.0-32.0); Mean Platelet Vol. 9.1 fl (6.2-12.0); Platelet Count 290 K/mm3 (150-450); RBC Distribution Width SD 44.9 fl (35.1-43.9); Red Blood Count 5.08 M/mm3 (4.2-5.4); White Blood Count 9.2 K/mm3 (4.4-11.0)
[2022-01-25 09:02] LABS: Anion Gap 10 (5-15); BUN 9 mg/dL (7-18); BUN/Creat Ratio 8.7 RATIO (10-20); Calcium,Total 9.5 mg/dL (8.5-10.1); Chloride 107 mmol/L (98-107); Creatinine, Serum 1.03 mg/dL (0.55-1.02); EST Glomerular Filtration Rate 58 mL/min (>60); Est Glom Filt Rate - Afr Amer 70 mL/min (>60); Glucose 113 mg/dL (74-106); Potassium 3.5 mmol/L (3.5-5.1); Sodium Level 143 mmol/L (136-145)
[2022-01-25] MEDS: Lactated Ringers 1,000 ML 15 ML IV (09:08)
[2022-01-25 09:15] LABS: Thyroid Stim Hormone (TSH) 4.73 uIU/mL (0.358-3.74)
== END | disposition home or self-care (01) ==
LOC: SDC 01-25 08:04 → AC 01-25 08:06 → PAT 03-05 16:42
PROVIDERS: Anesthesiology; PCP Family Medicine; Referring Provider Urology; Visit Provider Urology
DX: Z01.818 Encounter for other preprocedural examination (principal)
CPT/HCPCS: 80048; 83036; 84443; 85027; 87040; 87086; 87088; J7120; A4216; J0744

== ENCOUNTER → 2022-04-03 | Outpatient (CLI) | payer MEDICAID, SELFPAY ==
[2022-04-03 18:20] LABS: Protein, Urine (Random) 39.7 mg/dL (<11.9); Protein:Creat Ratio 280 mg/g CRE (0-200)
== END | disposition home or self-care (01) ==
LOC: POLAB3 14:07
PROVIDERS: PCP Family Medicine; Visit Provider Internal Medicine Nephrology
DX: R80.9 Proteinuria, unspecified (principal)
CPT/HCPCS: 82570; 84156

== ENCOUNTER → 2022-06-26 | Outpatient (CLI) | payer MEDICAID, SELFPAY ==
[2022-06-26 13:40] LABS: Hematocrit 46.5 % (37-47); Hemoglobin 14.9 g/dL (12.0-15.0); Mean Corpuscular Volume 87.4 fL (81-99); Mean Platelet Vol. 9.2 fl (6.2-12.0); Platelet Count 285 K/mm3 (150-450); RBC Distribution Width CV 14.1 % (11.6-14.6); RBC Distribution Width SD 45.2 fl (35.1-43.9); Red Blood Count 5.32 M/mm3 (4.2-5.4)
[2022-06-26 14:37] LABS: Anion Gap 7 (5-15); BUN 15 mg/dL (7-18); BUN/Creat Ratio 15.6 RATIO (10-20); Calcium,Total 9.6 mg/dL (8.5-10.1); Chloride 109 mmol/L (98-107); Creatinine, Serum 0.96 mg/dL (0.55-1.02); EST Glomerular Filtration Rate 62 mL/min (>60); Est Glom Filt Rate - Afr Amer 75 mL/min (>60); Glucose 108 mg/dL (74-106); Potassium 4.1 mmol/L (3.5-5.1); Sodium Level 140 mmol/L (136-145); Thyroid Stim Hormone (TSH) 1.84 uIU/mL (0.358-3.74)
[2022-06-26 14:50] LABS: Hemoglobin A1c 5.6 % (3.8-5.6)
== END | disposition home or self-care (01) ==
LOC: LAB 13:16
PROVIDERS: Anesthesiology; PCP Family Medicine; Referring Provider Urology; Visit Provider Urology
DX: Z01.812 Encounter for preprocedural laboratory examination (principal)
CPT/HCPCS: 36415; 80048; 83036; 84443; 85027

== ENCOUNTER 2022-06-28 07:58 | Day surgery (SDC) | payer MEDICAID, SELFPAY ==
--- NOTE | 2022-06-28 | BLA_PTH ---
PATIENT: EMILIA ANG LOC: [facility] [place] U#:[id number] AGE/SX: 62/F ROOM: RE06/28/[address]: Dr. Adriane Alatorre MD : 1960 BED: DIS: 06/28/2022 SPEC #: [id number] RECD: 06/28/22 13:47 STATUS: VANESSA REAnthony #: [id number] ABBY: 06/28/22 00:[address]: Adriane Alatorre DEPT: SURGICAL PATHOLOGY RECD BY: Jay Fields ENTERED: 06/28/22 13:48 SP TYPE: BLADDER BX OTHR DR: Dr. Cong Dumont MD Tissues: Urinary bladder, NOS Procedures: Surgery Specimen Level IV HEADER OPERATION: Cysto, biopsy, fulguration, bladder tumor PRE-OP DIAGNOSIS: Urgency of micturition TISSUE SUBMITTED: Bladder biopsy MICROSCOPIC DIAGNOSIS Urinary bladder, biopsy: Fragments of squamous mucosa with associated focal chronic inflammation of lamina propria. AM:wesley 06/29/2022 MICROSCOPIC DESCRIPTION Slides are reviewed. GROSS DESCRIPTION Received in fixative is one container labeled with the patient's name and designated bladder biopsy. The specimen consists of multiple irregular fragments of light wilson soft tissue that in aggregate measure 1.5 x 0.3 x 0.1 cm. The specimen is totally submitted in one cassette. / SJ:weslye 06/28/2022 TC:3 CPT: 96901
[2022-06-28 08:31] VITALS: BP 155/58; PULSE 66; RESP 18; TEMP 36.6; O2SAT 95; BMI 42.7
[2022-06-28] MEDS: Lactated Ringers 1,000 ML 15 ML IV (08:35)
[2022-06-28 09:05] LABS: Bedside Glucose 106 mg/dL (74-106)
--- NOTE | 2022-06-28 09:35 | DCINST_ITS ---
Discharge Instructions Diet Discharge Diet: No restrictions Activity Discharge Activity: Return to Normal Activity Dressing / Incision Call your doctor if you observe: Fever of 101 or Higher, Inability to urinate and Inability to have a bowel movement Follow Up Care Please Follow Up With: Adriane Alatorre MD When: Call office for appointment Test Results: Test results from this visit will be discussed in further detail at your follow- up appointment, if applicable. Discharge Plan Admission Attending Provider: Adriane Alatorre Primary Care Provider: Cong Dumont Discharge Orders/Prescriptions Prescriptions: New oxycodone-acetaminophen [Percocet] 5-325 mg tablet 1 tab PO Q8H PRN (Reason: pain) 3 Days Qty: 10 0RF phenazopyridine [Pyridium] 200 mg tablet 200 mg PO TID PRN PRN (Reason: Bladder Spasms) 7 Days Qty: 30 0RF Continued trazodone 50 mg tablet 50 mg PO QHS PRN (Reason: Sleep) epinephrine 0.3 mg/0.3 mL auto-injector 0.3 mg IM ONCE Rx Instructions: as a single dose; may repeat once lamotrigine [Lamictal] 100 mg tablet 200 mg PO BID meclizine 25 mg tablet 25 mg PO DAILY PRN (Reason: Vertigo) liothyronine 5 MCG tablet 10 mcg PO 0800 Label Comments: TAKE 2 TABLETS BY MOUTH TWICE A DAY ergocalciferol (vitamin D2) 50,000 UNIT capsule 50,000 unit PO ADAN aripiprazole 15 MG tablet 15 mg PO DAILY Label Comments: TAKE 1 TABLET BY MOUTH ONCE DAILY. duloxetine 60 MG capsule 60 mg PO BID pantoprazole 40 MG tablet 40 mg PO DAILY levothyroxine 200 mcg tablet 225 mcg PO DAILY metoprolol tartrate 50 mg tablet 75 mg PO BID gabapentin 300 mg capsule 600 mg PO 0800 Label Comments: TAKE 2 CAPSULES (600 MG) IN THE MORNING AND 4 CAPSULES (900 MG) IN THEEVENING hydroxyzine HCl 50 MG tablet 50 mg PO 4X/DAY nitrofurantoin macrocrystal 50 mg capsule 50 mg PO QHS cyanocobalamin (vitamin B-12) 1,000 mcg tablet 1,000 mcg PO DAILY Label Comments: TAKE 1 TABLET BY MOUTH EVERY DAY melatonin 3 mg tablet 6 mg PO QHS Label Comments: TAKE 1 TABLET BY MOUTH AT 7PM AND THEN 1 TABLET AT 10PM (BEDTIME). liothyronine 5 mcg tablet 5 mcg PO 1600 gabapentin 300 mg capsule 1,200 mg PO 1600 Lubricant Eye (propyl glycol) 0.6 % drops 1 drp EACH EYE QHS Label Comments: USE 1 DROP IN BOTH EYES DAILY AT BEDTIME. Gemtesa 75 mg tablet 75 mg PO QHS estradiol 0.01 % (0.1 mg/gram) cream 1 applic VAGINAL QHS Label Comments: INSERT 1 GRAM VAGINALLY 3 TIMES A WEEK BEFORE BED Referrals / Follow Up: Cong Dumont MD [Primary Care Provider] - Disposition Disposition (needs filled in before D/C Order can be placed): Home, Self Care
--- NOTE | 2022-06-28 09:38 | OP.PCM_ITS ---
Report of Operation Date of Procedure: 06/28/22 Pre-Operative Diagnosis: Recurrent urinary tract infections, other specified di sorder of the bladder Post-Operative Diagnosis: Same Surgery/Procedure Performed:: Cystoscopy, bladder biopsy with fulguration Surgeon: Adriane Alatorre Type of Anesthesia: General Specimen's removed: Bladder biopsy Complications None Admit VTE Documentation VTE Present on Admission: Yes VTE Mechan Device Prophylaxis: SCD's VTE Pharm Prophylaxis ordered?: No Reason prophylaxis not ordered:: Treatment Not Indicated
--- NOTE | 2022-06-28 09:38 | PCM.OPRPT ---
Report of Operation Date of Procedure: 06/28/22 Pre-Operative Diagnosis: Recurrent urinary tract infections, other specified disorder of the bladder Post-Operative Diagnosis: Same Surgery/Procedure Performed:: Cystoscopy, bladder biopsy with fulguration Surgeon: Adriane Alatorre Type of Anesthesia: General Specimen's removed: Bladder biopsy X3 Description of Procedure: The patient is a 62-year-old female with recurrent urinary tract infections found to have changes in her urinary bladder on office cystoscopy consistent with squamous metaplasia. She now presents for formal biopsInformed consent was obtained. The patient was taken to the operating room and placed on the operating room table. Anesthesia monitored the head, neck, airway, IV access and vital signs throughout the case. Once anesthesia was appropriately administered, the patient was placed into dorsolithotomy position was prepped and draped in usual sterile fashion. At this time the cystoscope was inserted through the urethra under direct visualization into the urinary bladder. The bladder appeared much improved then it Was in the office. The inflammation was decreased.There is still a white filmy discrete area consistent with squamous metaplasia. In total 3 biopsies of this area of mucosa was taken. The bases of the biopsies sites were fulgurated for hemostatic control. The patient was then awakened and taken to the recovery room in good condition. There were no complications during this procedure. Grafts/Implants Used: None Complications None Admit VTE Documentation VTE Present on Admission: Yes VTE Mechan Device Prophylaxis: SCD's VTE Pharm Prophylaxis ordered?: No Reason prophylaxis not ordered:: Treatment Not Indicated
[2022-06-28] MEDS: Ciprofloxacin 400 MG/200 ML BAG 200 MG IV (09:39)
[2022-06-28 10:08] VITALS: BP 154/88; BP 155/58; PULSE 77; RESP 18; TEMP 36.7; O2SAT 99
[2022-06-28 10:15] VITALS: BP 139/77; BP 155/58; PULSE 74; RESP 18; O2SAT 95
[2022-06-28 10:29] VITALS: BP 118/68; BP 155/58; PULSE 69; RESP 18; TEMP 36.7; O2SAT 97
[2022-06-28 10:41] LABS: Bedside Glucose 147 mg/dL (74-106)
[2022-06-28 11:40] VITALS: BP 155/58
== END 2022-06-28 12:12 | disposition home or self-care (01) ==
LOC: SDC 07:59 → AC 08:00
PROVIDERS: PCP Family Medicine; Referring Provider Urology; Visit Provider Urology
PROC: 0TBB8ZX Excision of Bladder, Via Natural or Artificial Opening Endoscopic, Diagnostic (ICD-10-PCS; CPT 52224; principal; 2022-06-28 09:20)
DX: N39.0 Urinary tract infection, site not specified (principal); N32.89 Other specified disorders of bladder; G47.30 Sleep apnea, unspecified; F41.9 Anxiety disorder, unspecified; F32.A Depression, unspecified; I10 Essential (primary) hypertension; E07.9 Disorder of thyroid, unspecified; Z79.899 Other long term (current) drug therapy
CPT/HCPCS: 52224; 00910; 82962; 88305; J7120; J0744; J2405

== ENCOUNTER → 2023-07-12 | Outpatient (CLI) | payer MEDICAID, SELFPAY | END | disposition home or self-care (01) | LOC: LABSPEC 17:03 | PROVIDERS: PCP Family Medicine; Referring Provider Advanced Practice Midwife; Visit Provider Advanced Practice Midwife | DX: N89.8 Other specified noninflammatory disorders of vagina (principal) | CPT/HCPCS: 87070; 87077; 87186; 87205 ==

== ENCOUNTER → 2023-07-17 | Outpatient (CLI) | payer MEDICAID, SELFPAY ==
--- NOTE | 2023-07-17 12:58 | US_ITS ---
INDICATION: vaginal discharge possible vaginitis EXAMINATION: Ultrasound US Transvaginal Non-OB TECHNIQUE: Transvaginal (for optimal evaluation of the adnexa) pelvic ultrasound was performed. Grayscale, spectral waveform, and color flow Doppler evaluation of the adnexa. COMPARISON: Prior study dated: 08/24/2021 FINDINGS: UTERUS: Retroverted. The uterus measures 5.9 x 3.6 x 2.8 cm. The uterus is heterogeneous in texture. There is a small mass in the posterior wall of the uterus measuring about 1 cm consistent with uterine fibroid. Additional smaller fibroids are possible. The endometrial stripe measures 4 mm in AP diameter which is within normal limits. RIGHT OVARY: 1.9 x 1.5 x 1.3 cm. Non-enlarged, normal echogenicity. There is normal arterial inflow and venous outflow present in the right ovary. LEFT OVARY: Not visualized. FREE FLUID: None. US/Transvaginal Non- IMPRESSION: Small uterine fibroid. Electronically Signed: Haja Gipson MD at 14:10 EDT ,
== END | disposition home or self-care (01) ==
LOC: US 12:58
PROVIDERS: PCP Family Medicine; Referring Provider Advanced Practice Midwife; Visit Provider Advanced Practice Midwife
DX: N76.0 Acute vaginitis (principal)
CPT/HCPCS: 76830